=== PATIENT | female | born 1960 | race Caucasian/White ===

== ENCOUNTER 2020-03-07 08:21 | Outpatient (REF) | payer OTHER, SELFPAY ==
[2020-03-07 11:47] LABS: Anion Gap 13 (12-20); Blood Urea Nitrogen 14 mg/dL (9-16); Calcium 9.4 mg/dL (8.4-10.2); Carbon Dioxide 31 mmol/L (22-29); Chloride 103 mmol/L (96-108); Cholesterol 198 mg/dL; Estimated Glomerular Filt Rate > 60; Glucose Fasting 102 mg/dL (60-99); HDL Cholesterol 67 mg/dL; LDL Cholesterol Calculated 117 mg/dl; Potassium 3.6 mmol/l (3.3-5.1); Sodium 143 mmol/L (135-145); Triglycerides 72 mg/dL
== END 2020-03-07 08:22 | disposition home or self-care (01) ==
LOC: HO.HMGCLDS 08:21
PROVIDERS: PCP Internal Medicine; Visit Provider Internal Medicine
DX: I10 Essential (primary) hypertension (principal)
CPT/HCPCS: 80048; 80061

== ENCOUNTER 2020-05-20 09:32 | Outpatient (REF) | payer OTHER, SELFPAY ==
--- NOTE | 2020-05-20 09:39 | CT_ITS ---
EXAMINATION: CT CHEST SCREENING CLINICAL INFORMATION: Nicotine dependence COMPARISON: CT lung screening at 05/10/2019 TECHNIQUE: Multidetector volumetric CT imaging of the chest is performed without contrast using low dose technique. Additional 2D coronal and sagittal reformatted images and axial 3D maximum intensity projection (MIP) images are generated on the CT workstation. This CT examination was performed using dose optimization techniques as appropriate, variously including the following: *Automated exposure control *Adjustment of mA and/or kV according to patient size (this includes techniques or standardized protocols for targeted exams where dose is matched to indication/reason for exam; i.e. extremities or head) *Use of iterative reconstruction technique DLP: 58 mGy-cm FINDINGS: LUNGS: There is a 2.0 cm ground-glass density, right upper lobe, image 18/4. There is a 2.0 mm calcified nodule, left lower lobe, superior segment. There is a 2.0 mm nodule, right upper lobe in the azygos recess, axial image 14/4. There is a subpleural 3 mm nodule, right upper lobe, axial image 28/4. There is a 2.0 mm nodule, right lower lobe, axial image 44/4. These nodules are essentially stable. No new nodules, acute consolidation or new ground-glass density seen. MEDIASTINUM: The thyroid lobes are symmetrical and normal. The central trachea and the bronchi widely patent. The heart size and great vessels are normal caliber. No abnormal size mediastinal lymph nodes or mass seen. Minimal coronary artery calcifications seen. There is no pericardial effusion. PLEURA: There is no pleural effusion. No pleural mass or thickening. AXILLA: Small shotty lymph nodes. The chest wall appears unremarkable. UPPER ABDOMEN: Visualized liver, spleen, pancreas and bilateral adrenal glands are unremarkable. OSSEOUS STRUCTURES: There is mild spondylosis in the mid and lower dorsal spine. No lytic or sclerotic process seen. CT/CT lung screening IMPRESSION: 1. Well-expanded lungs with scattered small calcified pulmonary nodules and a 2.0 cm ground-glass density in the right upper lobe, are stable. 2. No new findings. ASSESSMENT: Lung-RADS category 2: Benign RECOMMENDATION: Low-dose annual CT chest
== END 2020-05-20 09:33 | disposition home or self-care (01) ==
LOC: HO.CT 09:32
PROVIDERS: PCP Internal Medicine; Visit Provider Surgery
DX: Z12.2 Encounter for screening for malignant neoplasm of respiratory organs (principal); F17.210 Nicotine dependence, cigarettes, uncomplicated
CPT/HCPCS: 71250

== ENCOUNTER 2020-07-11 08:16 | Outpatient (REF) | payer OTHER, SELFPAY ==
[2020-07-11 11:20] LABS: MANUAL DIFF FLAG NO
[2020-07-11 11:32] LABS: Basophils Absolute Auto 0.1 X10*3/uL (0.0-0.2); Basophils Percent Auto 1.1 % (0-2); Eosinophils Absolute Auto 0.3 X10*3/uL (0.0-0.4); Eosinophils Percent Auto 5.7 % (0-4); Hematocrit 40.6 % (37-47); Hemoglobin 13.4 g/dl (12.0-16.0); Imm Gran Abs Auto 0.02 X10*3/uL (0.00-0.03); Imm Gran Pct Auto 0.4 % (0.0-0.4); Lymphocytes Percent Auto 35.3 % (20-40); Mean Platelet Volume 10.3 fL (9.4-12.3); Monocytes Absolute Auto 0.4 X10*3/uL (0.1-1.2); Monocytes Percent Auto 7.1 % (2-11); Neutrophils Absolute Auto 2.8 X10*3/uL (2.0-8.3); Neutrophils Percent Auto 50.4 % (45-73); Platelet Count 286 X10*3/uL (160-400); Red Blood Count 4.46 X10*6/uL (4.20-5.50); Red Cell Distribution Width 13.3 % (11.0-16.0); White Blood Count 5.6 X10*3/uL (4.8-10.8)
[2020-07-11 12:05] LABS: Anion Gap 13 (12-20); Blood Urea Nitrogen 13 mg/dL (9-16); Calcium 9.3 mg/dL (8.4-10.2); Carbon Dioxide 29 mmol/L (22-29); Chloride 105 mmol/L (96-108); Cholesterol 205 mg/dL; Estimated Glomerular Filt Rate > 60; Glucose Fasting 103 mg/dL (60-99); HDL Cholesterol 62 mg/dL; LDL Cholesterol Calculated 126 mg/dl; Potassium 4.4 mmol/L (3.3-5.1); Sodium 143 mmol/L (135-145); Triglycerides 85 mg/dL
[2020-07-11 12:07] LABS: TSH reflex Free T4 1.14 uIU/mL (0.32-4.0)
== END 2020-07-11 08:17 | disposition home or self-care (01) ==
LOC: HO.HMGCLDS 08:16
PROVIDERS: PCP Internal Medicine; Visit Provider Internal Medicine
DX: L40.9 Psoriasis, unspecified (principal); F32.5 Major depressive disorder, single episode, in full remission; J45.909 Unspecified asthma, uncomplicated; K21.9 Gastro-esophageal reflux disease without esophagitis; I10 Essential (primary) hypertension; Z91.09 Other allergy status, other than to drugs and biological substances
CPT/HCPCS: 36415; 80048; 80061; 84443; 85025

== ENCOUNTER 2020-09-02 11:18 | Outpatient (REF) | payer OTHER, SELFPAY | END 2020-09-02 11:19 | disposition home or self-care (01) | LOC: HO.10HDL 11:18 | PROVIDERS: Visit Provider Otolaryngology | DX: T78.1XXA Other adverse food reactions, not elsewhere classified, initial encounter (principal) | CPT/HCPCS: 36415; 82785; 86003 ==

== ENCOUNTER → 2021-01-13 15:24 | Outpatient (BNVA) | payer OTHER, SELFPAY | PROVIDERS: PCP Internal Medicine; Referring Provider Internal Medicine; Visit Provider Surgery Vascular Surgery ==

== ENCOUNTER 2021-01-26 07:57 | Outpatient (REF) | payer OTHER, SELFPAY ==
[2021-01-26 11:03] LABS: MANUAL DIFF FLAG NO
[2021-01-26 11:18] LABS: Basophils Percent Auto 0.6 % (0-2); Eosinophils Absolute Auto 0.2 X10*3/uL (0.0-0.4); Eosinophils Percent Auto 2.5 % (0-4); Hematocrit 42.4 % (37-47); Hemoglobin 13.9 g/dl (12.0-16.0); Imm Gran Abs Auto 0.03 X10*3/uL (0.00-0.03); Imm Gran Pct Auto 0.4 % (0.0-0.4); Lymphocytes Absolute Auto 1.5 X10*3/uL (1.2-4.9); Lymphocytes Percent Auto 21.2 % (20-40); Mean Corpuscular HGB Conc 32.8 g/dl (31.0-35.0); Mean Corpuscular Hemoglobin 30.2 pg (27.0-33.0); Mean Platelet Volume 10.4 fL (9.4-12.3); Monocytes Absolute Auto 0.5 X10*3/uL (0.1-1.2); Monocytes Percent Auto 6.5 % (2-11); Neutrophils Percent Auto 68.8 % (45-73); Platelet Count 290 X10*3/uL (160-400); Red Blood Count 4.61 X10*6/uL (4.20-5.50); Red Cell Distribution Width 13.7 % (11.0-16.0); White Blood Count 7.3 X10*3/uL (4.8-10.8)
[2021-01-26 11:43] LABS: Alanine Aminotransferase 25 U/L (0-31); Albumin Level 4.5 g/dL (3.5-5.0); Alkaline Phosphatase 113 U/L (39-117); Anion Gap 16 (12-20); Aspartate Amino Transferase 20 U/L (5-31); Bilirubin Total 0.4 mg/dL (0.0-1.0); Blood Urea Nitrogen 17 mg/dL (9-16); Calcium 9.8 mg/dL (8.4-10.2); Carbon Dioxide 28 mmol/L (22-29); Chloride 105 mmol/L (96-108); Estimated Glomerular Filt Rate > 60; Glucose Random 107 mg/dL (60-115); Potassium 4.1 mmol/L (3.3-5.1); Sodium 145 mmol/L (135-145); Total Protein 6.8 g/dL (6.5-8.0)
== END 2021-01-26 07:58 | disposition home or self-care (01) ==
LOC: HO.HMGCLDS 07:57
PROVIDERS: PCP Internal Medicine; Visit Provider Internal Medicine
DX: F32.5 Major depressive disorder, single episode, in full remission (principal); I10 Essential (primary) hypertension; J45.40 Moderate persistent asthma, uncomplicated; K21.9 Gastro-esophageal reflux disease without esophagitis; Z91.09 Other allergy status, other than to drugs and biological substances
CPT/HCPCS: 36415; 80053; 85025

== ENCOUNTER 2021-01-27 08:02 | Outpatient (REF) | payer OTHER, SELFPAY ==
--- NOTE | ~2021-01-27 | US_ITS ---
EXAMINATION: BILATERAL LOWER EXTREMITY VENOUS ULTRASOUND (Reflux Exam) CLINICAL INDICATION: This is a 60-year-old female with venous insufficiency and varicose veins. COMPARISON: None. TECHNIQUE: Color flow triplex imaging and compression Doppler was performed to evaluate both the deep and the superficial systems bilaterally. To evaluate the superficial system, the examination was performed in the upright position. Color-flow Doppler ultrasound and compression ultrasound were utilized. In addition, maneuvers were utilized to demonstrate reflux. FINDINGS: 1. DEEP VENOUS ULTRASOUND OF THE RIGHT LOWER EXTREMITY: Common Femoral Vein: Compressible, normal respiratory variation and augmented flow. Femoral vein: Compressible, normal color flow and augmentation. Popliteal Vein: Compressible, normal augmentation. Deep Reflux: There is no evidence of reflux in the deep system in either the common femoral vein or the popliteal vein. . There is no evidence of a Robins's cyst. 2. SUPERFICIAL ULTRASOUND WITH DOPPLER OF RIGHT LOWER EXTREMITY GREAT SAPHENOUS VEIN: Saphenofemoral junction: 0.7 cm Mid thigh: 0.3 cm Above knee: 0.4 cm Below knee: 0.3 cm Mid calf: 0.2 cm Ankle: 0.3 cm GSV REFLUX: No evidence of reflux. DUPLICATED GREAT SAPHENOUS VEIN: There is a duplicated lateral great saphenous vein measuring 0.4 cm without reflux. SMALL SAPHENOUS VEIN: Upper: 0.3 cm Lower: 0.2 cm SSV REFLUX: No evidence of reflux. VEIN OF GIACOMINI: None Imaged. PERFORATORS: There is a 0.2 cm distal calf mold closer without reflux. VARICOSITIES: None Imaged 3. DEEP VENOUS ULTRASOUND OF THE LEFT LOWER EXTREMITY: Common Femoral Vein: Compressible, normal respiratory variation and augmented flow. Femoral vein: Compressible, normal color flow and augmentation. Popliteal Vein: Compressible, normal augmentation. Deep Reflux: There is no evidence of reflux in the deep system in either the common femoral vein or the popliteal vein. There is no evidence of a Robins's cyst. 4. SUPERFICIAL ULTRASOUND WITH DOPPLER OF LEFT LOWER EXTREMITY GREAT SAPHENOUS VEIN: Saphenofemoral junction: 0.6 cm. There is no reflux at the junction. Mid thigh: 0.3 cm Above knee: 0.3 cm. There is no reflux at this level and above. Below knee: 0.3 cm. The reflux time is 908 ms. Mid calf: 0.2 cm. There is no reflux at this level and below. Ankle: 0.2 cm GSV REFLUX: There is a short segment of reflux below the knee. There is no reflux at the junction. DUPLICATED GREAT SAPHENOUS VEIN: There is a 0.4 cm duplicated left lateral great saphenous vein measuring 0.4 cm without reflux at the junction. SMALL SAPHENOUS VEIN: Upper: 0.4 cm Lower: 0.2 cm SSV REFLUX: No evidence of reflux. VEIN OF GIACOMINI: None Imaged. PERFORATORS: There are 0.3 mid thigh mold closer without reflux. There is a mid calf mold closer measuring 0.2 cm with a reflux time 1672 ms. VARICOSITIES: None Imaged US/US venous duplex LE BI IMPRESSION: 1. There is a patent right great saphenous vein without evidence of reflux. 2. There is a patent duplicated right lateral rate saphenous vein without reflux. 3. There is a patent right small saphenous vein without reflux. 4. No right-sided varicose veins are seen. 5. There is a patent left great saphenous vein with only isolated reflux below the knee. No reflux is seen at the junction. 6. There is a duplicated left lateral great saphenous vein without reflux during junction. 7. There is a patent left small saphenous vein without reflux. 8. No left-sided varicose veins are seen.
== END 2021-01-27 08:03 | disposition home or self-care (01) ==
LOC: HO.US 08:02
PROVIDERS: PCP Internal Medicine; Visit Provider Surgery Vascular Surgery
DX: I83.893 Varicose veins of bilateral lower extremities with other complications (principal)
CPT/HCPCS: 93970

== ENCOUNTER → 2021-02-05 15:07 | Outpatient (BNVA) | payer OTHER, SELFPAY | PROVIDERS: PCP Internal Medicine; Visit Provider Surgery Vascular Surgery ==

== ENCOUNTER 2021-06-05 09:01 | Outpatient (REF) | payer OTHER, SELFPAY ==
--- NOTE | ~2021-06-05 | CT_ITS ---
EXAMINATION: CT CHEST SCREENING CLINICAL INFORMATION: Nicotine dependence, half a pack a day, 44 years of smoking. COMPARISON: CT lung screening 05/10/2019 and 05/20/2020 TECHNIQUE: Multidetector volumetric CT imaging of the chest is performed without contrast using low dose technique. Additional 2-D coronal and sagittal reformatted images and axial 3-D maximum intensity projection (MIP) images are generated on the CT workstation. This CT examination was performed using dose optimization techniques as appropriate, variously including the following: *Automated exposure control *Adjustment of mA and/or kV according to patient size (this includes techniques or standardized protocols for targeted exams where dose is matched to indication/reason for exam; i.e. extremities or head) *Use of iterative reconstruction technique DLP: 61 mGy-cm FINDINGS: LUNGS: There is a 2 cm ground-glass density right upper lobe axial image 20/4, previously same size on axial image 18/4, 2 mm calcified nodule right upper lobe azygoesophageal recess axial image 16/6, 2 mm calcified nodule left lower lobe superior segment axial image 23/4. The lungs are expanded without any acute pneumonic process. There is no acute pneumonic process or mass seen. MEDIASTINUM: The mediastinum is normal. PLEURA: There is no pleural effusion. No pleural mass or thickening. AXILLA: No lymphadenopathy. UPPER ABDOMEN: Unremarkable. OSSEOUS STRUCTURES: There is mild ventral spondylosis throughout the mid and lower dorsal spine. No lytic or sclerotic process seen. CT/CT lung screening IMPRESSION: Stable calcified and noncalcified pulmonary nodules. No new nodules seen. No acute consolidation. No abnormal mediastinal adenopathy. ASSESSMENT: Lung-RADS category 2: Benign. RECOMMENDATION: Low-dose annual CT chest.
== END 2021-06-05 09:02 | disposition home or self-care (01) ==
LOC: HO.CT 09:01
PROVIDERS: PCP Internal Medicine; Visit Provider Physician Assistant Medical
DX: Z12.2 Encounter for screening for malignant neoplasm of respiratory organs (principal); F17.210 Nicotine dependence, cigarettes, uncomplicated
CPT/HCPCS: 71271

== ENCOUNTER 2021-09-08 07:54 | Outpatient (REF) | payer OTHER, SELFPAY ==
[2021-09-08 11:58] LABS: Alanine Aminotransferase 27 U/L (0-31); Albumin Level 4.4 g/dL (3.5-5.0); Alkaline Phosphatase 90 U/L (39-117); Anion Gap 14 (12-20); Aspartate Amino Transferase 20 U/L (5-31); Bilirubin Total 0.6 mg/dL (0.0-1.0); Blood Urea Nitrogen 15 mg/dL (9-16); Carbon Dioxide 27 mmol/L (22-29); Chloride 100 mmol/L (96-108); Estimated Glomerular Filt Rate > 60; Glucose Random 117 mg/dL (60-115); Potassium 3.8 mmol/L (3.3-5.1); Sodium 137 mmol/L (135-145); Total Protein 6.8 g/dL (6.5-8.0)
== END 2021-09-08 07:55 | disposition home or self-care (01) ==
LOC: HO.HMGCLDS 07:54
PROVIDERS: Visit Provider Internal Medicine
DX: I10 Essential (primary) hypertension (principal); J45.40 Moderate persistent asthma, uncomplicated; K21.9 Gastro-esophageal reflux disease without esophagitis; L40.9 Psoriasis, unspecified; Z91.09 Other allergy status, other than to drugs and biological substances
CPT/HCPCS: 36415; 80053

== ENCOUNTER 2022-02-12 12:54 | Outpatient (REF) | payer OTHER, SELFPAY ==
[2022-02-12 13:58] LABS: MANUAL DIFF FLAG NO
[2022-02-12 14:04] LABS: Basophils Percent Auto 0.6 % (0-2); Eosinophils Absolute Auto 0.2 X10*3/uL (0.0-0.4); Eosinophils Percent Auto 3.4 % (0-4); Hematocrit 43.8 % (37.0-47.0); Hemoglobin 14.6 g/dl (12.0-16.0); Imm Gran Abs Auto 0.04 X10*3/uL (0.00-0.03); Imm Gran Pct Auto 0.6 % (0.0-0.4); Lymphocytes Absolute Auto 2.4 X10*3/uL (1.2-4.9); Lymphocytes Percent Auto 35.5 % (20-40); Mean Corpuscular HGB Conc 33.3 g/dl (31.0-35.0); Mean Corpuscular Hemoglobin 29.9 pg (27.0-33.0); Mean Corpuscular Volume 89.6 fL (80.0-98.0); Mean Platelet Volume 9.8 fL (9.4-12.3); Monocytes Absolute Auto 0.5 X10*3/uL (0.1-1.2); Monocytes Percent Auto 6.8 % (2-11); Neutrophils Absolute Auto 3.6 x10*3/uL (2.0-8.3); Neutrophils Percent Auto 53.1 % (45-73); Platelet Count 285 X10*3/uL (160-400); Red Blood Count 4.89 X10*6/uL (4.20-5.50); Red Cell Distribution Width 13.1 % (11.0-16.0); White Blood Count 6.7 X10*3/uL (4.8-10.8)
[2022-02-12 14:22] LABS: Alanine Aminotransferase 25 U/L (0-31); Albumin Level 4.7 g/dL (3.5-5.0); Alkaline Phosphatase 114 U/L (39-117); Anion Gap 16 (12-20); Aspartate Amino Transferase 19 U/L (5-31); Bilirubin Total 0.5 mg/dL (0.0-1.0); Blood Urea Nitrogen 15 mg/dL (9-16); Calcium 10.3 mg/dL (8.4-10.2); Carbon Dioxide 28 mmol/L (22-29); Chloride 99 mmol/L (96-108); Estimated Glomerular Filt Rate > 60; Glucose Random 101 mg/dL (60-115); Potassium 3.4 mmol/L (3.3-5.1); Sodium 140 mmol/L (135-145); Total Protein 7.3 g/dL (6.5-8.0)
[2022-02-12 14:43] LABS: TSH reflex Free T4 0.78 uIU/mL (0.32-4.0)
[2022-02-14 18:42] LABS: LDL Cholesterol Direct 151 mg/dL (<100)
[2022-02-15 21:46] LABS: Lyme Abs Screen <0.90 index
[2022-02-15 23:16] LABS: IgA 199 mg/dL (70-320); IgG 777 mg/dL (600-1540); IgM 58 mg/dL (50-300)
== END 2022-02-12 12:55 | disposition home or self-care (01) ==
LOC: HO.HMGCLDS 12:54
PROVIDERS: PCP Internal Medicine; Visit Provider Internal Medicine
DX: F32.5 Major depressive disorder, single episode, in full remission (principal); I83.12 Varicose veins of left lower extremity with inflammation; J45.40 Moderate persistent asthma, uncomplicated; K21.9 Gastro-esophageal reflux disease without esophagitis; R21 Rash and other nonspecific skin eruption; R59.0 Localized enlarged lymph nodes; D89.89 Other specified disorders involving the immune mechanism, not elsewhere classified; Z91.09 Other allergy status, other than to drugs and biological substances; I10 Essential (primary) hypertension
CPT/HCPCS: 36415; 80053; 82784; 83721; 84443; 85025; 86617; 86618

== ENCOUNTER 2022-06-10 12:40 | Outpatient (REF) | payer OTHER, SELFPAY ==
--- NOTE | ~2022-06-10 | CT_ITS ---
EXAMINATION: CT CHEST SCREENING CLINICAL INFORMATION: Nicotine dependence. COMPARISON: None. TECHNIQUE: Multidetector volumetric CT imaging of the chest is performed without contrast using low dose technique. Additional 2D coronal and sagittal reformatted images and axial 3D maximum intensity projection (MIP) images are generated on the CT workstation. This CT examination was performed using dose optimization techniques as appropriate, variously including the following: *Automated exposure control *Adjustment of mA and/or kV according to patient size (this includes techniques or standardized protocols for targeted exams where dose is matched to indication/reason for exam; i.e. extremities or head) *Use of iterative reconstruction technique DLP: 57 mGy-cm FINDINGS: LUNGS: The lungs are well expanded and clear of acute pneumonic process. There is a 2.0 cm ground-glass density right upper lobe axial image 17/4, stable. 2 mm calcification right upper lobe medially in the azygoesophageal recess, 2 mm calcification right middle lobe axial image 321/6, lingula axial image 39/4. No noncalcified nodule seen. There is no acute consolidation, atelectasis or edema. MEDIASTINUM: Thyroid lobes are symmetric and normal. The central trachea and the bronchi are widely patent. Heart size and the great vessels are normal caliber. Trace coronary artery calcification seen. No pericardial effusion seen. CORONARY ARTERY CALCIFICATION: None visualized on this study. PLEURA: There is no pleural effusion. No pleural mass or thickening. AXILLA: No lymphadenopathy. UPPER ABDOMEN: Visualized liver, spleen, pancreas and bilateral adrenal glands are unremarkable. OSSEOUS STRUCTURES: There is mild ventral spondylosis. No aggressive lytic or sclerotic process seen. CT/CT lung screening IMPRESSION: Stable 2 cm ground-glass density right upper lobe. Low-dose annual CT chest. ASSESSMENT: Lung-RADS category 2: Benign RECOMMENDATION: Low-dose annual CT chest.
== END 2022-06-10 12:41 | disposition home or self-care (01) ==
LOC: HO.CT 12:40
PROVIDERS: PCP Internal Medicine; Visit Provider Physician Assistant Medical
DX: Z12.2 Encounter for screening for malignant neoplasm of respiratory organs (principal); F17.210 Nicotine dependence, cigarettes, uncomplicated
CPT/HCPCS: 71271

== ENCOUNTER 2022-09-09 08:47 | Outpatient (REF) | payer OTHER, SELFPAY ==
[2022-09-09 11:44] LABS: MANUAL DIFF FLAG NO
[2022-09-09 12:04] LABS: Alanine Aminotransferase 25 U/L (0-31); Albumin Level 4.4 g/dL (3.5-5.0); Alkaline Phosphatase 92 U/L (39-117); Anion Gap 13 (12-20); Aspartate Amino Transferase 19 U/L (5-31); Basophils Absolute Auto 0.1 X10*3/uL (0.0-0.2); Bilirubin Total 0.8 mg/dL (0.0-1.0); Blood Urea Nitrogen 16 mg/dL (9-16); Calcium 9.6 mg/dL (8.4-10.2); Carbon Dioxide 28 mmol/L (22-29); Chloride 105 mmol/L (96-108); Cholesterol 233 mg/dL; Eosinophils Absolute Auto 0.2 X10*3/uL (0.0-0.4); Eosinophils Percent Auto 4.8 % (0-4); Estimated Glomerular Filt Rate > 60; Glucose Fasting 103 mg/dL (60-99); HDL Cholesterol 54 mg/dL; Hemoglobin 13.7 g/dl (12.0-16.0); Imm Gran Abs Auto 0.02 X10*3/uL (0.00-0.03); Imm Gran Pct Auto 0.4 % (0.0-0.4); LDL Cholesterol Calculated 160 mg/dl; Lymphocytes Absolute Auto 1.8 X10*3/uL (1.2-4.9); Lymphocytes Percent Auto 35.7 % (20-40); Mean Corpuscular HGB Conc 33.4 g/dl (31.0-35.0); Mean Corpuscular Hemoglobin 30.2 pg (27.0-33.0); Mean Corpuscular Volume 90.5 fL (80.0-98.0); Mean Platelet Volume 10.3 fL (9.4-12.3); Monocytes Absolute Auto 0.4 X10*3/uL (0.1-1.2); Monocytes Percent Auto 7.8 % (2-11); Neutrophils Absolute Auto 2.5 x10*3/uL (2.0-8.3); Neutrophils Percent Auto 50.3 % (45-73); Platelet Count 267 X10*3/uL (160-400); Red Blood Count 4.53 X10*6/uL (4.20-5.50); Red Cell Distribution Width 13.1 % (11.0-16.0); Sodium 142 mmol/L (135-145); Total Protein 6.6 g/dL (6.5-8.0); Triglycerides 98 mg/dL
== END 2022-09-09 08:48 | disposition home or self-care (01) ==
LOC: HO.HMGCLDS 08:47
PROVIDERS: PCP Internal Medicine; Visit Provider Internal Medicine
DX: F32.5 Major depressive disorder, single episode, in full remission (principal); I10 Essential (primary) hypertension; J45.40 Moderate persistent asthma, uncomplicated; K21.9 Gastro-esophageal reflux disease without esophagitis; L40.9 Psoriasis, unspecified; Z91.09 Other allergy status, other than to drugs and biological substances
CPT/HCPCS: 36415; 80053; 80061; 85025

== ENCOUNTER 2022-12-09 09:17 | Outpatient (REF) | payer OTHER, SELFPAY ==
[2022-12-09 12:02] LABS: Alanine Aminotransferase 22 U/L (0-31); Albumin Level 4.3 g/dL (3.5-5.0); Alkaline Phosphatase 100 U/L (39-117); Anion Gap 14 (12-20); Aspartate Amino Transferase 19 U/L (5-31); Bilirubin Total 0.7 mg/dL (0.0-1.0); Blood Urea Nitrogen 17 mg/dL (9-16); Calcium 10.2 mg/dL (8.4-10.2); Carbon Dioxide 29 mmol/L (22-29); Chloride 102 mmol/L (96-108); Cholesterol 224 mg/dL; Estimated Glomerular Filt Rate > 60; Glucose Fasting 107 mg/dL (60-99); HDL Cholesterol 66 mg/dL; LDL Cholesterol Calculated 145 mg/dl; Potassium 3.7 mmol/L (3.3-5.1); Sodium 141 mmol/L (135-145); Total Protein 6.9 g/dL (6.5-8.0); Triglycerides 68 mg/dL
== END 2022-12-09 09:18 | disposition home or self-care (01) ==
LOC: HO.HMGCLDS 09:17
PROVIDERS: PCP Internal Medicine; Visit Provider Internal Medicine
DX: E78.9 Disorder of lipoprotein metabolism, unspecified (principal); F99 Mental disorder, not otherwise specified; J45.40 Moderate persistent asthma, uncomplicated; R73.01 Impaired fasting glucose; I10 Essential (primary) hypertension
CPT/HCPCS: 36415; 80053; 80061

== ENCOUNTER 2022-12-10 11:46 | Outpatient (AMB) | payer OTHER, SELFPAY ==
[2022-12-10 11:47] VITALS: BP 122/72; PULSE 86; O2SAT 97; BMI 33.0
--- NOTE | 2022-12-10 11:47 | A.OFFPC_ITS ---
Vital Signs 12/10/22 11:47 Height 5 ft 3 in Weight 186 lb 4 oz BMI 33.0 BP 122/72 Blood Pressure Location Rt brachial Position Sitting Pulse 86 Pulse Source Pulse Oximeter Pulse Oximetry (%) 97 Oxygen Delivery Method Room Air Intake Visit Reasons: 3m follow up Allergies Seasonal Allergies Allergy (Mild, Verified 12/10/22 12:01) Sneezing eggs Allergy (Mild, Uncoded 09/10/22 09:12) Unknown Medication List - Last Reconciled 12/10/22 by Annita Malloy MD albuterol sulfate 90 mcg/actuation (ProAir HFA) 2 puffs inhalation Q6H PRN 30 days alprazolam 0.25 mg PO DAILY PRN 90 days budesonide-formoterol 160-4.5 mcg/actuation (Symbicort) 2 puffs PO BID bupropion HCl (Wellbutrin XL) 150 mg PO QAM 90 days cetirizine (Zyrtec) 10 mg PO DAILY coenzyme Q10 400 mg PO DAILY fluticasone propionate 50 mcg/actuation (Flonase Allergy Relief) 1 spray intranasal DAILY hydrochlorothiazide 50 mg PO DAILY losartan 25 mg PO DAILY 90 days montelukast 10 mg PO DAILY omega-3 fatty acids 1,000 mg PO DAILY omeprazole 20 mg PO DAILY 90 days red yeast rice 1,200 mg PO DAILY tacrolimus 0.1% topical BID Tobacco use date assessed: 12/10/22 Dental Screening Dental Screen Date: 12/10/22 Did you have a dental visit in the last 12 months?: Yes Did you have a dental problem in the last 6 months where you did not have access to dental care?: No Was dental information given to patient?: No HPI 3m follow up 2 HPI Details Patient is 61-year-old female came in today for her regular follow-up appointment. Lipid disorder: Her cholesterol was elevated last visit patient did not wanted to take medication she has modified her diet and has started taking Mcdonald 3 Her LDL has improved to 145 it was 160+ last time. HDL has risen to 66. Patient is complaining of frequency of urination without any dysuria or blood in the urine she has it started drinking more water We talked about possibility of cystitis I have ordered the urinalysis, we have also talked about overactive bladder at this time patient does not take any medication for that GERD is stable , she says that if she stop the medication her symptoms comes back so she is taking it regularly Hypertension: Patient is on losartan 25 mg and hydrochlorothiazide 50 mg, no side effects. Allergies are stable she is on montelukast as well as Zyrtec was fine last visit is also getting allergy shots Psoriasis treated by Dermatology Moderate severe asthma : Patient is doing well with Symbicort inhaler and ProAir as needed, symptoms has started to act up due whether Follow-up 3 months ?? [facility] Medical History Allergic asthma Chronic GERD Depression, major, in remission Environmental allergies Hypertension, essential Psoriasis (a type of skin inflammation) Surgical History History of back surgery Family History Father History of heart attack Mother HTN (hypertension) Asthma Diabetes mellitus CHF (congestive heart failure) Maternal Grandmother Cancer Colon cancer Maternal Grandfather Cancer Social History Housing: House Patient Tobacco Use Status: Current everyday Tobacco user Cigarettes Per Day: 6 e-Cigarette/Vaping Use: Never Used Current occupational status: employed Cognitive needs: No Hearing needs: No Vision needs: No Questionnaire Thrive Questionnaire Date Thrive assessed: 06/11/22 AUDIT C Alcohol Use Questionnaire (AUDIT-C) 1. How often do you have a drink containing alcohol?: 2-3 times a week 2. How many drinks containing alcohol do you have on a typical day when you are drinking?: 3 or 4 3. How often do you have six or more drinks on one occasion?: Never Total Score: 4 Score Reviewed/Action Taken: Yes FERNANDO-7 AMB Questionnaire FERNANDO-7 Date FERNANDO - 7 assessed: 06/11/22 Source: Developed by Drs. Trey Bush, Aurora Roger, Amrit Espinoza and colleagues, with an educational morales from [employer]. Review of Systems Const Denies chills and Denies fever(s) ENT Denies epistaxis and Denies nasal discharge Card Denies chest pain Resp Denies chest congestion, Denies cough and Denies hemoptysis GI Denies diarrhea and Denies nausea Skin/Breast Denies rash Neuro Reports no additional complaints Psych Reports no additional complaints Endo Reports no additional complaints Physical exam (Primary Care) Vital Signs: Last Vital Signs Pulse 86 12/10/22 11:47 BP 122/72 12/10/22 11:47 Pulse Ox 97 12/10/22 11:47 Oxygen Delivery Method Room Air 12/10/22 11:47 BMI result Body Mass Index 33.0 Tobacco/Smoking Status: Tobacco use Status Tobacco use date assessed 12/10/22 12/10/22 12:03 Patient Tobacco Use Status Current everyday Tobacco 12/10/22 11:49 e-Cigarette/Vaping Use Never Used 12/10/22 11:49 Thrive Assessment: Date of Thrive Assessment Date Thrive assessed 06/11/22 12/10/22 11:49 Const General: cooperative, comfortable and no acute distress Orientation/consciousness: patient oriented x3 HENMT Head: Yes normocephalic Eyes General: appearance normal, both eyes and all related structures Neck Neck: Yes supple Resp Effort & Inspection: normal respiratory effort, no cough and no stridor Cardio Rhythm: regular rhythm Heart sounds: S1 normal heart sound present and S2 normal heart sound present Skin General skin exam: turgor normal Neuro General: patient oriented x3, tone normal and moves all extremities Extrem Right lower extremity: no edema Left lower extremity: no edema Assessment and Plan Assessment & Plan (1) Hypertension, essential: Code(s): I10 - Essential (primary) hypertension (2) Chronic GERD: Code(s): K21.9 - Gastro-esophageal reflux disease without esophagitis (3) Environmental allergies: Code(s): Z91.09 - Other allergy status, other than to drugs and biological substances (4) Depression, major, in remission: Code(s): F32.5 - Major depressive disorder, single episode, in full remission (5) Psoriasis (a type of skin inflammation): Code(s): L40.9 - Psoriasis, unspecified (6) Asthma, moderate persistent: Code(s): J45.40 - Moderate persistent asthma, uncomplicated (7) Emotional disorder: Code(s): F99 - Mental disorder, not otherwise specified (8) Impaired fasting blood sugar: Code(s): R73.01 - Impaired fasting glucose (9) Lipid disorder: Code(s): E78.9 - Disorder of lipoprotein metabolism, unspecified (10) Frequency of urination: Code(s): R35.0 - Frequency of micturition Plan Patient is 61-year-old female came in today for her regular follow-up appointment. Lipid disorder: Her cholesterol was elevated last visit patient did not wanted to take medication she has modified her diet and has started taking Mcdonald 3 Her LDL has improved to 145 it was 160+ last time. HDL has risen to 66. Patient is complaining of frequency of urination without any dysuria or blood in the urine she has it started drinking more water We talked about possibility of cystitis I have ordered the urinalysis, we have also talked about overactive bladder at this time patient does not take any medication for that GERD is stable , she says that if she stop the medication her symptoms comes back so she is taking it regularly Hypertension: Patient is on losartan 25 mg and hydrochlorothiazide 50 mg, no side effects. Allergies are stable she is on montelukast as well as Zyrtec was fine last visit is also getting allergy shots Psoriasis treated by Dermatology Moderate severe asthma : Patient is doing well with Symbicort inhaler and ProAir as needed, symptoms has started to act up due whether Follow-up 3 months ?? Orders: Orders UA CC w/rflx Micro + Cult Today R35.0 - Frequency of micturition Coding Level of Care Code Est Pt Level 4 (34757) Diagnoses Hypertension, essential I10 Chronic GERD K21.9 Environmental allergies Z91.09 Depression, major, in remission F32.5 Psoriasis (a type of skin inflammation) L40.9 Asthma, moderate persistent J45.40 Emotional disorder F99 Impaired fasting blood sugar R73.01 Lipid disorder E78.9 Frequency of urination R35.0
== END 2022-12-10 12:25 | disposition home or self-care (01) ==
PROVIDERS: Visit Provider Internal Medicine
DX: I10 Essential (primary) hypertension (principal); K21.9 Gastro-esophageal reflux disease without esophagitis; Z91.09 Other allergy status, other than to drugs and biological substances; F32.5 Major depressive disorder, single episode, in full remission; J45.40 Moderate persistent asthma, uncomplicated; L40.9 Psoriasis, unspecified; F99 Mental disorder, not otherwise specified; R73.01 Impaired fasting glucose; E78.9 Disorder of lipoprotein metabolism, unspecified; R35.0 Frequency of micturition
CPT/HCPCS: 99214

== ENCOUNTER 2023-04-04 11:28 | Emergency (ER) | payer OTHER, SELFPAY ==
--- NOTE | 2023-04-04 11:34 | ECG_ITS ---
Test Reason : pain Blood Pressure : / mmHG Vent. Rate : 083 BPM Atrial Rate : 083 BPM P-R Int : 202 ms QRS Dur : 146 ms QT Int : 406 ms P-R-T Axes : 065 -26 041 degrees QTc Int : 477 ms Normal sinus rhythm Right bundle branch block Minimal voltage criteria for LVH, may be normal variant ( R in aVL ) Abnormal ECG No previous ECGs available Referred By: Gray Winchester Electronically Signed By:SCOOBY BARBOUR MD
[2023-04-04 12:39] VITALS: BP 171/79; PULSE 73; RESP 18; TEMP 36.7; O2SAT 100; BMI 33.7
[2023-04-04 13:17] LABS: Basophils Absolute Auto 0.1 X10*3/uL (0.0-0.2); Basophils Percent Auto 0.7 % (0-2); Eosinophils Absolute Auto 0.2 X10*3/uL (0.0-0.4); Eosinophils Percent Auto 2.7 % (0-4); Hemoglobin 14.5 g/dl (12.0-16.0); Imm Gran Abs Auto 0.02 X10*3/uL (0.00-0.03); Imm Gran Pct Auto 0.3 % (0.0-0.4); Lymphocytes Absolute Auto 2.1 X10*3/uL (1.2-4.9); Lymphocytes Percent Auto 27.8 % (20-40); MANUAL DIFF FLAG NO; Mean Corpuscular HGB Conc 33.7 g/dl (31.0-35.0); Mean Corpuscular Hemoglobin 29.8 pg (27.0-33.0); Mean Corpuscular Volume 88.3 fL (80.0-98.0); Mean Platelet Volume 9.1 fL (9.4-12.3); Monocytes Absolute Auto 0.5 X10*3/uL (0.1-1.2); Monocytes Percent Auto 6.9 % (2-11); Neutrophils Absolute Auto 4.6 x10*3/uL (2.0-8.3); Neutrophils Percent Auto 61.6 % (45-73); Platelet Count 292 X10*3/uL (160-400); Red Blood Count 4.87 X10*6/uL (4.20-5.50); Red Cell Distribution Width 13.2 % (11.0-16.0); White Blood Count 7.5 X10*3/uL (4.8-10.8)
[2023-04-04 13:30] LABS: Anion Gap 14 (12-20); Blood Urea Nitrogen 14 mg/dL (9-16); Calcium 10.7 mg/dL (8.4-10.2); Carbon Dioxide 27 mmol/L (22-29); Chloride 103 mmol/L (96-108); Creatinine Clr Calc Pharmacy 79.9; Estimated Glomerular Filt Rate > 60; Glucose Random 101 mg/dL (60-115); Potassium 3.6 mmol/L (3.3-5.1); Sodium 140 mmol/L (135-145)
[2023-04-04 13:40] LABS: Troponin-I High Sensitivity < 2.7 ng/L (<3.5-17.0)
[2023-04-04 13:52] LABS: TSH reflex Free T4 1.01 uIU/mL (0.32-4.0)
[2023-04-04 16:34] VITALS: BP 186/78; PULSE 77; RESP 18; O2SAT 97
--- NOTE | 2023-04-04 16:34 | ED.ARRPALP ---
HPI - Arrhythmia/Palpitations General Chief Complaint: Arrhythmia/Palpitations Stated Complaint: irregular heartbeat Time Seen by Provider: 04/04/23 16:33 Source: patient Mode of arrival: ambulatory Limitations: no limitations History of Present Illness HPI narrative: Patient is 62 years old history of asthma hypertension anxiety been feeling palpitation episode for last 3 days off and on feels heart beating in runs for few seconds without any dizziness shortness of breath or chest frequency has decreased today patient was seen at urgent care center 3 days ago. No increased caffeine intake no thyroid disease no syncope Related Data Home Medications Medication Instructions Recorded Confirmed cetirizine 10 mg tablet (Zyrtec) 10 mg PO DAILY 03/11/20 12/10/22 fluticasone propionate 50 1 spray intranasal DAILY 03/11/20 12/10/22 mcg/actuation nasal spray,suspension (Flonase Allergy Relief) tacrolimus 0.1 % topical ointment topical BID 09/11/21 12/10/22 coenzyme Q10 400 mg capsule 400 mg PO DAILY 12/10/22 12/10/22 omega-3 fatty acids 1,000 mg 1,000 mg PO DAILY 12/10/22 12/10/22 capsule red yeast rice 600 mg capsule 1,200 mg PO DAILY 12/10/22 12/10/22 Previous Rx's Medication Instructions Recorded albuterol sulfate 90 mcg/actuation 2 puff inhalation Q6H PRN 05/01/21 aerosol inhaler (ProAir HFA) bronchospasm 30 days #8.5 grams omeprazole 20 mg capsule,delayed 20 mg PO DAILY 90 days #90 caps 06/11/22 release budesonide-formoterol HFA 160 2 puff PO BID #10.2 ea 06/28/22 mcg-4.5 mcg/actuation aerosol inhaler (Symbicort) alprazolam 0.25 mg tablet 0.25 mg PO DAILY PRN anxiety 90 09/10/22 days #90 tabs hydrochlorothiazide 50 mg tablet 50 mg PO DAILY #90 tabs 01/14/23 bupropion HCl 150 mg 24 hr tablet, 150 mg PO QAM 90 days #90 tabs 01/27/23 extended release (Wellbutrin XL) montelukast 10 mg tablet 10 mg PO DAILY #90 tabs 03/23/23 losartan 25 mg tablet 25 mg PO DAILY 90 days #90 tabs 03/29/23 Allergies Allergy/AdvReac Type Severity Reaction Status Date / Time Seasonal Allergies Allergy Mild Sneezing Verified 12/10/22 12:01 eggs Allergy Mild Unknown Uncoded 09/10/22 09:12 Review of Systems Review of Systems: Yes all other systems are reviewed and are negative [facility] Past Medical History Medical History Psoriasis (a type of skin inflammation) Depression, major, in remission Allergic asthma Environmental allergies Chronic GERD Hypertension, essential Surgical History History of back surgery Family History Family History Father History of heart attack Mother HTN (hypertension) Asthma Diabetes mellitus CHF (congestive heart failure) Maternal Grandmother Cancer Colon cancer Maternal Grandfather Cancer Social History Social History Housing: House Alcohol intake: current Alcohol intake frequency: a few times a week Alcohol type: wine and hard liquor Patient Tobacco Use Status: Current everyday Tobacco user Cigarettes Per Day: 6 Smoked in Last 30 Days: Yes e-Cigarette/Vaping Use: Never Used Use of substances other than those prescribed or required for medical reasons: No Advance Directives: No Advance Directives Information Provided: No Current occupational status: employed Cognitive needs: No Hearing needs: No Vision needs: No Physical Exam Vital Signs: Vital Signs: Last Vital Signs Temp 98.0 F 04/04/23 12:39 Pulse 77 04/04/23 16:34 Resp 18 04/04/23 16:34 BP 186/78 H 04/04/23 16:34 Pulse Ox 97 04/04/23 16:34 O2 Del Method Room Air 04/04/23 16:34 BMI result Body Mass Index 33.7 Appearance: Alert. Oriented X3. No acute distress. Eyes: PERRLA, No Nystagmus ENT: Pharynx normal. Oral Mucosa moist Neck: Normal inspection. Neck supple. CVS: Normal heart rate and rhythm. Pulses normal. Respiratory: No respiratory distress. Equal air entry bilateral, no wheezing/rales/rhonchi Abdomen: Soft and nontender. Bowel sounds are present, no mass palpable, no CVA tenderness Skin: Skin warm and dry. Normal skin color. Normal skin turgor. Extremities: No lower extremity edema. No calf tenderness Neuro: Oriented X 3. No motor deficit. 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 04/04/23 13:08 04/04/23 13:08 Labs: Lab Results 04/04/23 Range/Units 13:08 WBC 7.5 (4.8-10.8) X10*3/uL RBC 4.87 (4.20-5.50) X10*6/uL Hgb 14.5 (12.0-16.0) g/dl Hct 43.0 (37.0-47.0) % MCV 88.3 (80.0-98.0) fL MCH 29.8 (27.0-33.0) pg MCHC 33.7 (31.0-35.0) g/dl RDW 13.2 (11.0-16.0) % Plt Count 292 (160-400) X10*3/uL MPV 9.1 L (9.4-12.3) fL Immature Gran % (Auto) 0.3 (0.0-0.4) % Neut % (Auto) 61.6 (45-73) % Lymph % (Auto) 27.8 (20-40) % Stoddard % (Auto) 6.9 (2-11) % Eos % (Auto) 2.7 (0-4) % Baso % (Auto) 0.7 (0-2) % Lymph # (Auto) 2.1 (1.2-4.9) X10*3/uL Stoddard # (Auto) 0.5 (0.1-1.2) X10*3/uL Eos # (Auto) 0.2 (0.0-0.4) X10*3/uL Baso # (Auto) 0.1 (0.0-0.2) X10*3/uL Abs Immat Gran (auto) 0.02 (0.00-0.03) X10*3/uL Absolute Neuts (auto) 4.6 (2.0-8.3) x10*3/uL Absolute Nucleated RBC 0.000 (0.0-0.012) X10*3/uL Nucleated RBC % (auto) 0.0 (0.0-0.2) /100WBC Sodium 140 (135-145) mmol/L Potassium 3.6 (3.3-5.1) mmol/L Chloride 103 (96-108) mmol/L Carbon Dioxide 27 (22-29) mmol/L Anion Gap 14 (12-20) BUN 14 (9-16) mg/dL Creatinine 0.74 (0.5-1.4) mg/dL Estim Creat Clear Calc 79.9 Estimated GFR > 60 Random Glucose 101 (60-115) mg/dL Calcium 10.7 H (8.4-10.2) mg/dL Troponin I High Sens < 2.7 (<3.5-17.0) ng/L TSH 1.01 (0.32-4.0) uIU/mL Independent Interpretation I performed an independent interpretation of an: EKG Interpretation: Normal sinus rhythm heart rate 83 beats per minute,normal axis right bundle-branch block, LVH no acute ischemia Discharge Plan Discharge Clinical Impression: Palpitations Patient Disposition: Home, Self-Care Instructions: Heart Palpitations (ED) Additional Instructions: Decrease caffeine intake Follow with PCP/cardiology for further management including Holter placement Report to the ER if passing out episode with palpitation or palpitation gets worse Prescriptions: No Action budesonide-formoterol [Symbicort] 160-4.5 mcg/actuation HFA aerosol inhaler 2 puff PO BID Qty: 10.2 3RF hydrochlorothiazide 50 mg tablet 50 mg PO DAILY Qty: 90 0RF bupropion HCl [Wellbutrin XL] 150 mg tablet extended release 24 hr 150 mg PO QAM 90 Days Qty: 90 0RF montelukast 10 mg tablet 10 mg PO DAILY Qty: 90 1RF losartan 25 mg tablet 25 mg PO DAILY 90 Days Qty: 90 0RF cetirizine [Zyrtec] 10 mg tablet 10 mg PO DAILY fluticasone propionate [Flonase Allergy Relief] 50 mcg/actuation spray,suspension 1 spray intranasal DAILY Rx Instructions: administer into each nostril albuterol sulfate [ProAir HFA] 90 mcg/actuation HFA aerosol inhaler 2 puff inhalation Q6H PRN (Reason: bronchospasm) 30 Days Qty: 8.5 2RF tacrolimus 0.1 % ointment topical BID omeprazole 20 mg capsule,delayed release(DR/EC) 20 mg PO DAILY 90 Days Qty: 90 3RF alprazolam 0.25 mg tablet 0.25 mg PO DAILY PRN (Reason: anxiety) 90 Days Qty: 90 0RF coenzyme Q10 400 mg capsule 400 mg PO DAILY red yeast rice 600 mg capsule 1,200 mg PO DAILY Rx Instructions: give with meal/snack omega-3 fatty acids 1,000 mg capsule 1,000 mg PO DAILY Referrals: Fernandez Haq MD [Physician] - 2 weeks
== END 2023-04-04 17:43 | disposition home or self-care (01) ==
PROVIDERS: Physician Assistant; Emergency Provider Internal Medicine; PCP Internal Medicine
DX: I49.9 Cardiac arrhythmia, unspecified (principal); F41.1 Generalized anxiety disorder; R00.2 Palpitations; F43.0 Acute stress reaction; Z79.899 Other long term (current) drug therapy; F17.210 Nicotine dependence, cigarettes, uncomplicated; Z71.6 Tobacco abuse counseling
CPT/HCPCS: 36415; 80048; 84443; 84484; 85025; 93005; 99283; 99284

== ENCOUNTER 2023-04-25 13:56 | Outpatient (AMB) | payer OTHER, SELFPAY ==
[2023-04-25 13:58] VITALS: BP 151/76; PULSE 78; BMI 34.9
--- NOTE | 2023-04-25 13:58 | MHC.OFFVIS ---
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 (NS) Intake Note: still having some palpitations Caul Puller Required: No Allergies Seasonal Allergies Allergy (Mild, Verified 04/25/23 14:01) Sneezing eggs Allergy (Mild, Uncoded 09/10/22 09:12) Unknown Medication List - Last Reconciled 04/25/23 by Sonia Pulido NP-C albuterol sulfate 90 mcg/actuation (ProAir HFA) 2 puffs inhalation Q6H PRN 30 days alprazolam 0.25 mg PO DAILY PRN 90 days budesonide-formoterol 160-4.5 mcg/actuation (Symbicort) 2 puffs PO BID bupropion HCl (Wellbutrin XL) 150 mg PO QAM 90 days cetirizine (Zyrtec) 10 mg PO DAILY coenzyme Q10 400 mg PO DAILY fluticasone propionate 50 mcg/actuation (Flonase Allergy Relief) 1 spray intranasal DAILY hydrochlorothiazide 50 mg PO DAILY losartan 25 mg PO DAILY 90 days montelukast 10 mg PO DAILY omega-3 fatty acids 1,000 mg PO DAILY omeprazole 20 mg PO DAILY 90 days red yeast rice 1,200 mg PO DAILY tacrolimus 0.1% topical BID 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 No significant abnormalities were identified. She was noted to have occasional PVCs. She was referred to Cardiology for further evaluation. Today she presents for cardiology consultation. She tells me that for the last year she has noticed intermittent episodes of rapid heart palpitations. She says it feels like her heart is punching hard at times. It may go on for a few beats then stop and resume. This can happen with activity or at rest. She has no associated symptoms of presyncope, syncope, lightheadedness. No other chest discomfort, no shortness of breath, PND, orthopnea or edema. She admits to being mostly sedentary. 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 She does not do any routine exercise. She has no cardiac history beyond being told she had a heart murmur in the past. Her father had fatal MD at age 44. Her mother has had issues with congestive heart failure. She does smoke, currently 6 cigarettes per day. No routine alcohol use. [facility] Medical History Psoriasis (a type of skin inflammation) Depression, major, in remission Allergic asthma Environmental allergies Chronic GERD Hypertension, essential Surgical History History of back surgery Family History Father History of heart attack Mother HTN (hypertension) Asthma Diabetes mellitus CHF (congestive heart failure) Maternal Grandmother Cancer Colon cancer Maternal Grandfather Cancer Housing: House Alcohol intake: current Alcohol intake frequency: a few times a week Alcohol type: wine and hard liquor Patient Tobacco Use Status: Current everyday Tobacco user Cigarettes Per Day: 6 e-Cigarette/Vaping Use: Never Used Current occupational status: employed Cognitive needs: No Hearing needs: No Vision needs: No Review of Systems Const Details: admits to being sedentary All systems reviewed & are unremarkable except as noted in HPI and below ENT Reports dizziness Card Details: palpitations Denies chest pain, Denies chest pain at rest, Denies chest pain with activity, Denies pedal edema, Denies edema, Denies leg edema, Denies lightheadedness, Reports palpitations, Denies dyspnea, Denies dyspnea on exertion and Denies orthopnea Resp Denies cough, Denies dyspnea and Denies dyspnea on exertion GI Denies hematochezia and Denies change in stool character Musc Denies abnormal gait, Denies limited range of motion, Denies muscle cramps, Denies muscle weakness, Denies numbness, Denies radiating pain into limb, Denies stiffness and Denies tingling Neuro Denies abnormal gait, Reports dizziness, Denies numbness and Denies tingling Endo Reports palpitations Physical Exam Vital Signs: Last Vital Signs Pulse 78 04/25/23 13:58 BP 151/76 H 04/25/23 13:58 BMI result Body Mass Index 34.9 Const General: cooperative, healthy appearing, comfortable and no acute distress Orientation/consciousness: patient oriented x3 Neck Neck: Yes normal visual inspection Resp Effort & Inspection: normal respiratory effort Auscultation: clear to auscultation bilaterally, no rales, no rhonchi and no wheezes Cardio Jugular venous distension: no JVD Rate: regular rate Rhythm: regular rhythm Heart sounds: S1 normal heart sound present, S2 normal heart sound present, no murmurs and no rubs Peripheral pulses: Peripheral pulses 2+ throughout Neuro General: patient oriented x3 Extrem General: Yes normal to inspection Psych Appearance: grossly normal Mental Status: mental status grossly normal Speech and movement: Normal speech and movement present Assessment & Plan Assessment & Plan (1) Palpitations: Code(s): R00.2 - Palpitations Plan: Reported heart palpitations which feel like a strong punch to her chest and can occur for minutes and on and off for hours. No associated symptoms of lightheadedness or shortness of breath. No history of presyncope, syncope. ER evaluation on 04/04/2023 for this symptom. EKG shows sinus rhythm with right bundle branch block, rate 83. ER notes indicate occasional PVCs, normal ME, QRS and QTC intervals. Lab work reviewed with no significant abnormalities, no anemia, TSH 1.01, potassium 3.6. Today she reports the symptoms have been occurring over the last year without clear aggravating or alleviating factors. More recently they have increased. Pulse is regular on examination. Will check a one-week Holter to evaluate for arrhythmia, atrial fibrillation. Will check an echocardiogram to assess for structural heart disease. Reviewed reduction in caffeinated beverages, increasing physical activity as tolerated, benefits of weight loss. Cardiology follow-up in 4-6 weeks, sooner if needed. (2) Right bundle branch block: Code(s): I45.10 - Unspecified right bundle-branch block Plan: Finding of right bundle branch block on EKG. No prior EKG for comparison. Unknown if this is a new finding. Will check echo as above. (3) Hypertension, essential: Code(s): I10 - Essential (primary) hypertension Plan: Elevated this visit. She tells me her blood pressure is up and down. She monitors it at home and it is usually in normal range. Will continue on current meds, hydrochlorothiazide and losartan. No med changes made today. Will plan recheck at next visit Orders: Orders CA echo transthoracic complete Today I10 - Essential (primary) hypertension, I45.10 - Unspecified right bundle-branch block, R00.2 - Palpitations ECG 7 day holter monitor Today R00.2 - Palpitations Coding Level of Care Code New Pt Level 3 (79432) Diagnoses Palpitations R00.2 Right bundle branch block I45.10 Hypertension, essential I10 Time Spent (min) 28
== END 2023-04-25 14:31 | disposition home or self-care (01) ==
PROVIDERS: PCP Internal Medicine; Visit Provider Nurse Practitioner Family
DX: R00.2 Palpitations (principal); I45.10 Unspecified right bundle-branch block; I10 Essential (primary) hypertension
CPT/HCPCS: 99203

== ENCOUNTER → 2023-04-25 13:56 | Outpatient (BNVA) | payer OTHER, SELFPAY | PROVIDERS: PCP Internal Medicine; Visit Provider Nurse Practitioner Family ==

== ENCOUNTER 2023-05-11 09:58 | Outpatient (AMB) | payer OTHER, SELFPAY ==
[2023-05-11 10:00] VITALS: BP 152/84; PULSE 74; O2SAT 97; BMI 34.8
--- NOTE | 2023-05-11 10:00 | MHC.PC.OV ---
Vital Signs 05/11/23 10:00 Height 5 ft 3 in Weight 196 lb 8 oz BMI 34.8 BP 152/84 H Blood Pressure Location Lt brachial Position Sitting Pulse 74 Pulse Source Pulse Oximeter Pulse Oximetry (%) 97 Oxygen Delivery Method Room Air Intake Visit Reasons: High BP, discuss changing medication Allergies Seasonal Allergies Allergy (Mild, Verified 05/11/23 10:01) Sneezing eggs Allergy (Mild, Uncoded 09/10/22 09:12) Unknown Medication List - Last Reconciled 05/11/23 by Annita Malloy MD albuterol sulfate 90 mcg/actuation (ProAir HFA) 2 puffs inhalation Q6H PRN 30 days alprazolam 0.25 mg PO DAILY PRN 90 days budesonide-formoterol 160-4.5 mcg/actuation (Symbicort) 2 puffs PO BID bupropion HCl (Wellbutrin XL) 150 mg PO QAM 90 days cetirizine (Zyrtec) 10 mg PO DAILY coenzyme Q10 400 mg PO DAILY fluticasone propionate 50 mcg/actuation (Flonase Allergy Relief) 1 spray intranasal DAILY hydrochlorothiazide 50 mg PO DAILY losartan 25 mg PO DAILY 90 days montelukast 10 mg PO DAILY omega-3 fatty acids 1,000 mg PO DAILY omeprazole 20 mg PO DAILY 90 days red yeast rice 1,200 mg PO DAILY tacrolimus 0.1% topical BID Tobacco use date assessed: 05/11/23 Fall risk assessment: No Falls in past year Last assessed Fall Risk: 05/11/23 Dental Screening Dental Screen Date: 05/11/23 Did you have a dental visit in the last 12 months?: Yes Did you have a dental problem in the last 6 months where you did not have access to dental care?: No Was dental information given to patient?: Patient has dentist HPI High BP, discuss changing medication HPI Details Patient is a 62-year-old female came in today to talk about her blood pressure which has been running high Patient says that she was sick a month ago and took a decongestant like Sudafed after that she started having palpitations and her blood pressure has been running high since however she has stopped taking the medication 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 She has a regular follow-up appointment coming up in May we will recheck the blood pressure that. [facility] Medical History Psoriasis (a type of skin inflammation) Depression, major, in remission Allergic asthma Environmental allergies Chronic GERD Hypertension, essential Surgical History History of back surgery Family History Father History of heart attack Mother HTN (hypertension) Asthma Diabetes mellitus CHF (congestive heart failure) Maternal Grandmother Cancer Colon cancer Maternal Grandfather Cancer Social History Housing: House Alcohol intake: current Alcohol intake frequency: a few times a week Alcohol type: wine and hard liquor Patient Tobacco Use Status: Current everyday Tobacco user Cigarettes Per Day: 6 e-Cigarette/Vaping Use: Never Used Current occupational status: employed Cognitive needs: No Hearing needs: No Vision needs: No Questionnaire Thrive Questionnaire Date Thrive assessed: 06/11/22 AUDIT C Alcohol Use Questionnaire (AUDIT-C) 1. How often do you have a drink containing alcohol?: 2-3 times a week 2. How many drinks containing alcohol do you have on a typical day when you are drinking?: 3 or 4 3. How often do you have six or more drinks on one occasion?: Never Total Score: 4 Score Reviewed/Action Taken: Yes FERNANDO-7 AMB Questionnaire FERNANDO-7 Date FERNANDO - 7 assessed: 06/11/22 Source: Developed by Drs. Trey Bush, Aurora Roger, Amrit Espinoza and colleagues, with an educational morales from [employer]. Review of Systems Const Denies chills and Denies fever(s) ENT Denies epistaxis and Denies nasal discharge Card Denies chest pain Resp Denies chest congestion, Denies cough and Denies hemoptysis GI Denies diarrhea and Denies nausea Skin/Breast Denies rash Neuro Reports no additional complaints Psych Reports no additional complaints Endo Reports no additional complaints Physical exam (Primary Care) Vital Signs: Last Vital Signs Pulse 74 05/11/23 10:00 BP 152/84 H 05/11/23 10:00 Pulse Ox 97 05/11/23 10:00 Oxygen Delivery Method Room Air 05/11/23 10:00 BMI result Body Mass Index 34.8 Tobacco/Smoking Status: Tobacco use Status Tobacco use date assessed 05/11/23 05/11/23 10:08 Patient Tobacco Use Status Current everyday Tobacco 05/11/23 10:02 e-Cigarette/Vaping Use Never Used 05/11/23 10:02 Thrive Assessment: Date of Thrive Assessment Date Thrive assessed 06/11/22 05/11/23 10:02 Const General: cooperative, comfortable and no acute distress Orientation/consciousness: patient oriented x3 HENMT Head: Yes normocephalic Eyes General: appearance normal, both eyes and all related structures Neck Neck: Yes supple Resp Effort & Inspection: normal respiratory effort, no cough and no stridor Cardio Rhythm: regular rhythm Heart sounds: S1 normal heart sound present and S2 normal heart sound present Skin General skin exam: turgor normal Neuro General: patient oriented x3, tone normal and moves all extremities Extrem Right lower extremity: no edema Left lower extremity: no edema Assessment and Plan Assessment & Plan (1) Uncontrolled hypertension: Code(s): I10 - Essential (primary) hypertension (2) Right bundle branch block: Code(s): I45.10 - Unspecified right bundle-branch block Plan Patient is a 62-year-old female came in today to talk about her blood pressure which has been running high Patient says that she was sick a month ago and took a decongestant like Sudafed after that she started having palpitations and her blood pressure has been running high since however she has stopped taking the medication 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 She has a regular follow-up appointment coming up in May we will recheck the blood pressure that. Medications: Changed From losartan 25 mg PO DAILY 90 days 90 tabs 0RF I10 - Essential (primary) hypertension To losartan 50 mg PO DAILY 90 days 90 tabs 0RF I10 - Essential (primary) hypertension Coding Level of Care Code Est Pt Level 3 (65461) Diagnoses Uncontrolled hypertension I10 Right bundle branch block I45.10
== END 2023-05-11 11:55 | disposition home or self-care (01) ==
PROVIDERS: PCP Internal Medicine; Visit Provider Internal Medicine
DX: I10 Essential (primary) hypertension (principal); I45.10 Unspecified right bundle-branch block
CPT/HCPCS: 99213

== ENCOUNTER → 2023-05-16 09:56 | Outpatient (REF) | payer OTHER, SELFPAY ==
--- NOTE | 2023-05-16 09:59 | HM_ITS ---
* Total monitoring time 7 days. * Underlying rhythm is sinus with an average rate of 79/Min. Range 59 to 109/Min. * Rare supraventricular and ventricular ectopy. * No significant pauses or AV blocks. * Diary includes heart racing, mild pain chest/back but showing artifact. MTDD
--- NOTE | 2023-05-16 09:59 | CA_ITS ---
Transthoracic Echocardiogram Patient (Last, First, Middle): Shannan Alberto M Gender: Female Date of : 1960 Age: 62 Procedure Date: 05/16/2023 Procedure Type: Transthoracic Echocardiogram Location: OP Height: 160.02 cm Weight: 88.45 kg BSA: 1.91 m2 Heart Rate: bpm BP: 120 / 77 mmHg Boat Dispatcher: DAVID Referring MD: Sonia Pulido BOILER OPERATOR-C Dispatcher Service Chief: Fernandez Haq MD Symptoms: I45.10 - Unspecified right bundle-branch block Study Quality: Adequate ECG Rhythm: Sinus Conclusions: - 1. Normal LV ejection fraction 60 65% 2. Normal cardiac valvular Doppler 3. No gross pericardial effusion Findings Left Ventricle Normal left ventricular size, thickness, and systolic function. The visually estimated ejection fraction is between 60-65%. Spectral Doppler is indicative of a normal filling pattern. Peak GLS is -17.6%, which is borderline normal. Right Ventricle Normal right ventricular cavity size and systolic function. Atria The left atrium is normal in size. There is lipomatous hypertrophy of the interatrial septum. There is a mobile atrial septum noted. There is no evidence of interatrial shunt. The right atrium is normal in size. Aortic Valve The aortic valve structure and function is likely normal. There is no aortic valve stenosis. There is no aortic valve regurgitation. Mitral Valve Normal mitral valve structure and function. There is trace mitral valve regurgitation. There is no mitral valve stenosis. Pulmonic Valve The pulmonic valve is likely normal. Tricuspid Valve Normal tricuspid valve structure. Tricuspid regurgitation envelope is inadequate for calculation of right ventricular systolic pressure. Normal right atrial pressure. Great Vessels All visible segments of the aorta are normal in size. The pulmonary artery was not well visualized. Venous The inferior vena cava is normal in size and collapses greater than 50% with inspiration. Pericardium/Pleural There is no evidence of pericardial effusion. Prior Study Comparison No prior study available for comparison. Measurements 2D Linear Measurements IVSd: 1.06 0.6-0.9/0.6-1.0 cm LVIDd: 5.20 3.9-5.3/4.2-5.9 cm LVIDd Index: 2.72 2.4-3.2/2.2-3.1 cm/m2 LVIDs: 3.86 2.0-3.6 cm LVPWd: 0.87 0.7-1.1 cm LA Diam: 3.60 2.7-3.8/3.0-4.0 cm LAIDs Index: 1.88 1.5-2.3 cm/m2 LV Mass: 230.26 67-162/88-224 g LV Mass Index: 120.55 43-95/49-115 g/m2 LVOT Diam: 2.00 3.0+(-)1.3 cm 2D Systolic Function EF 4C: 53.40 >55% EF 2C: 67.30 >55% EF BiP: 60.30 >55% Mitral Valve MV Pk E: 0.74 MV PK A: 0.66 MV Decel Time: 145.00 E/A: 1.10 E'Lateral: 11.60 E'Medial: 7.72 E/E' Med: 9.60 E/E' Lat: 6.40 PHT: 43.00 MVA PHT: 5.12 Decel Parmer: 5.10 Aortic Valve AoV Pk Edwin: 1.36 AoV Mn Edwin: 0.90 AoV VTI: 0.29 AoV Pk Grad: 7.00 Aov Mn Grad: 4.00 MALKA Cont.VTI: 2.18 LVOT LVOT Pk Edwin: 0.86 LVOT Mn Edwin: 0.59 LVOT VTI: 0.20 LVOT Pk Grad: 3.00 LVOT Mn Grad: 2.00 LVOT Diam: 2.00 LVOT Area: 3.14 Diastolic Function MV Pk E: 0.74 MV Pk A: 0.66 E/A: 1.10 E'Medial: 7.72 E/E' Med: 9.60 E' Laterial: 11.60 E/E' Lat: 6.40 Right Ventricle TAPSE (mm): 20.40 TVS' Edwin: 12.20 Tricuspid Valve RA Press: 3.00 Great Vessels Aorta Sinus of Valsalva: 3.26 2.0-3.[address] [place]: 2.57 1.7-3.4 cm Ao Asc: 3.10 2.1-3.4 cm Updated in Other Vendor System with Status of Final Fernandez Haq MD electronically signed on 05/16/2023 5:29:59 PM with status of Final
== END ==
LOC: HO.CARD 09:56
PROVIDERS: Visit Provider Nurse Practitioner Family
DX: I10 Essential (primary) hypertension (principal); I45.10 Unspecified right bundle-branch block; R00.2 Palpitations
CPT/HCPCS: 93242; 93306; 93356

== ENCOUNTER → 2023-05-16 09:59 | Outpatient (BNV) | payer OTHER, SELFPAY | PROVIDERS: Visit Provider Internal Medicine Cardiovascular Disease | DX: R00.2 Palpitations (principal); I45.10 Unspecified right bundle-branch block | CPT/HCPCS: 93244; 93306 ==

== ENCOUNTER 2023-06-13 13:03 | Outpatient (AMB) | payer OTHER, SELFPAY ==
--- NOTE | 2023-06-13 13:08 | A.OFFVIS_ITS ---
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: No Allergies Seasonal Allergies Allergy (Mild, Verified 06/13/23 13:12) Sneezing eggs Allergy (Mild, Uncoded 09/10/22 09:12) Unknown Medication List - Last Reconciled 06/13/23 by Sonia Pulido, VITALIY-C albuterol sulfate 90 mcg/actuation (ProAir HFA) 2 puffs inhalation Q6H PRN 30 days alprazolam 0.25 mg PO DAILY PRN 90 days budesonide-formoterol 160-4.5 mcg/actuation (Symbicort) 2 puffs PO BID bupropion HCl (Wellbutrin XL) 150 mg PO QAM 90 days cetirizine (Zyrtec) 10 mg PO DAILY coenzyme Q10 400 mg PO DAILY fluticasone propionate 50 mcg/actuation (Flonase Allergy Relief) 1 spray intranasal DAILY hydrochlorothiazide 50 mg PO DAILY losartan 50 mg PO DAILY 90 days montelukast 10 mg PO DAILY omega-3 fatty acids 1,000 mg PO DAILY omeprazole 20 mg PO DAILY 90 days red yeast rice 1,200 mg PO DAILY tacrolimus 0.1% topical BID HPI 6 wk f/up holter/ echo HPI Details . Shannan is a 62-year-old female with past medical history of hypertension, hyperlipidemia, obesity, right bundle branch block who is being evaluated for heart palpitations. She recently underwent echocardiogram and Holter monitor and now presents for follow-up. Today she reports that her heart palpitations have greatly lessened. She is overall feeling much better. She denies any chest discomfort at rest or with activity. No shortness of breath, palpitations, presyncope, syncope, PND, orthopnea or edema. She reports good activity tolerance. Takes all meds as directed. [facility] Medical History Psoriasis (a type of skin inflammation) Depression, major, in remission Allergic asthma Environmental allergies Chronic GERD Hypertension, essential Surgical History History of back surgery Family History Father History of heart attack Mother HTN (hypertension) Asthma Diabetes mellitus CHF (congestive heart failure) Maternal Grandmother Cancer Colon cancer Maternal Grandfather Cancer Social History Housing: House Alcohol intake: current Alcohol intake frequency: a few times a week Alcohol type: wine and hard liquor Patient Tobacco Use Status: Current everyday Tobacco user Cigarettes Per Day: 6 e-Cigarette/Vaping Use: Never Used Current occupational status: employed Cognitive needs: No Hearing needs: No Vision needs: No Review of Systems Const All systems reviewed & are unremarkable except as noted in HPI and below ENT Denies dizziness Card Denies chest pain, Denies chest pain at rest, Denies chest pain with activity, Denies rapid heart rate, Denies pedal edema, Denies edema, Denies leg edema, Denies lightheadedness, Denies palpitations, Denies dyspnea, Denies dyspnea on exertion and Denies orthopnea Resp Denies cough, Denies dyspnea and Denies dyspnea on exertion GI Denies hematochezia and Denies change in stool character Musc Denies abnormal gait, Denies limited range of motion, Denies muscle cramps, Denies muscle weakness, Denies numbness, Denies radiating pain into limb, Denies stiffness and Denies tingling Neuro Denies abnormal gait, Denies dizziness, Denies numbness and Denies tingling Endo Denies palpitations Physical Exam Vital Signs: Last Vital Signs Pulse 69 06/13/23 13:09 BP 146/74 H 06/13/23 13:09 BMI result Body Mass Index 35.1 Const General: cooperative, healthy appearing, comfortable and no acute distress Orientation/consciousness: patient oriented x3 Neck Neck: Yes normal visual inspection and Yes no JVD Resp Effort & Inspection: normal respiratory effort Auscultation: clear to auscultation bilaterally, no crackles, no rales, no rhonchi and no wheezes Cardio Jugular venous distension: no JVD Rate: regular rate Rhythm: regular rhythm Heart sounds: S1 normal heart sound present, S2 normal heart sound present, no murmurs and no rubs Neuro General: patient oriented x3 Extrem General: Yes normal to inspection, No no pedal edema and No calf tenderness Psych Appearance: grossly normal Mental Status: mental status grossly normal Speech and movement: Normal speech and movement present Assessment & Plan Assessment & Plan (1) Palpitations: Code(s): R00.2 - Palpitations Plan: Previously Reported heart palpitations which feel like a strong punch to her chest and can occur for minutes and on and off for hours. No associated symptoms of lightheadedness or shortness of breath. No history of presyncope, syncope. ER evaluation on 04/04/2023 for this symptom. EKG shows sinus rhythm with right bundle branch block, rate 83. ER notes indicate occasional PVCs, normal WI, QRS and QTC intervals. Lab work reviewed with no significant abnormalities, no anemia, TSH 1.01, potassium 3.6. Holter monitor done on 05/16/2023 for 7 days shows sinus rhythm with average heart rate 79, rare SVE and VE. Echocardiogram done 05/16/2023 shows EF 60-65%, no valve abnormalities and no regional wall motion abnormality. Today she reports her heart palpitations have lessened. She no longer has any significant concerns. She was likely feeling extrasystoles more likely PVCs. Reviewed this with her. Reviewed reduction in caffeinated beverages, increasing physical activity as tolerated, benefits of weight loss. (2) Right bundle branch block: Code(s): I45.10 - Unspecified right bundle-branch block Plan: Finding of right bundle branch block on EKG. No prior EKG for comparison. Unknown if this is a new finding. Echocardiogram showing normal EF and no regional wall motion abnormalities. She has no anginal symptoms. Will hold off on stress testing at this time. Cardiology follow-up with EKG in 1 year, sooner if needed (3) Hypertension, essential: Code(s): I10 - Essential (primary) hypertension Plan: Elevated this visit. She tells me her blood pressure is up and down. She monitors it at home and it is usually in normal range. Will continue on current meds, hydrochlorothiazide and losartan. No med changes made today. She will continue to follow with her PCP Plan Time spent on chart review, documentation, interview assess Coding Level of Care Code Est Pt Level 3 (19793) Diagnoses Palpitations R00.2 Right bundle branch block I45.10 Hypertension, essential I10 Time Spent (min) 22
[2023-06-13 13:09] VITALS: BP 146/74; PULSE 69; BMI 35.1
== END 2023-06-13 15:03 | disposition home or self-care (01) ==
PROVIDERS: PCP Internal Medicine; Visit Provider Nurse Practitioner Family
DX: R00.2 Palpitations (principal); I45.10 Unspecified right bundle-branch block; I10 Essential (primary) hypertension
CPT/HCPCS: 99213

== ENCOUNTER → 2023-06-13 13:03 | Outpatient (BNVA) | payer OTHER, SELFPAY | PROVIDERS: PCP Internal Medicine; Visit Provider Nurse Practitioner Family ==

== ENCOUNTER 2023-06-17 11:59 | Outpatient (AMB) | payer OTHER, SELFPAY ==
[2023-06-17 12:06] VITALS: BP 140/74; PULSE 78; O2SAT 97; BMI 35.1
--- NOTE | 2023-06-17 12:06 | A.OFFPC_ITS ---
Vital Signs 06/17/23 12:06 Height 5 ft 3 in Weight 198 lb BMI 35.1 BP 140/74 H Blood Pressure Location Lt brachial Position Sitting Pulse 78 Pulse Source Pulse Oximeter Pulse Oximetry (%) 97 Intake Visit Reasons: 6m follow up Mat Inspector Required: No Allergies Seasonal Allergies Allergy (Mild, Verified 06/17/23 12:08) Sneezing eggs Allergy (Mild, Uncoded 09/10/22 09:12) Unknown Medication List - Last Reconciled 06/17/23 by Annita Malloy MD albuterol sulfate 90 mcg/actuation (ProAir HFA) 2 puffs inhalation Q6H PRN 30 days alprazolam 0.25 mg PO DAILY PRN 90 days budesonide-formoterol 160-4.5 mcg/actuation (Symbicort) 2 puffs PO BID bupropion HCl (Wellbutrin XL) 150 mg PO QAM 90 days cetirizine (Zyrtec) 10 mg PO DAILY coenzyme Q10 400 mg PO DAILY fluticasone propionate 50 mcg/actuation (Flonase Allergy Relief) 1 spray intranasal DAILY hydrochlorothiazide 50 mg PO DAILY losartan 50 mg PO DAILY 90 days montelukast 10 mg PO DAILY omega-3 fatty acids 1,000 mg PO DAILY omeprazole 20 mg PO DAILY 90 days red yeast rice 1,200 mg PO DAILY tacrolimus 0.1% topical BID Tobacco use date assessed: 06/17/23 Fall risk assessment: No Falls in past year Last assessed Fall Risk: 06/17/23 Dental Screening Dental Screen Date: 06/17/23 Did you have a dental visit in the last 12 months?: Yes Did you have a dental problem in the last 6 months where you did not have access to dental care?: No Was dental information given to patient?: Patient has dentist HPI 6m follow up HPI Details Patient is 62-year-old female with a history of Hypertension, chronic GERD, allergies, allergic asthma, depression, psoriasis, varicose veins of lower extremity, impaired fasting sugar, lipid disorder, bladder disorder, obesity, right bundle branch block Came in for regular follow-up appointment Patient says that she would like to take Semaglutide, she is obese and need to lose about 40 lb I have talked about side effects of medication including pancreatitis and thyroid cancer I have sent the script, once patient picks it up she is to give us a call so we can book her a visit with the nurse She does not know how to inject herself. After that she will need a visit in 4 weeks for monitoring She has cut down on smoking to 4 cigarettes a day now. Blood pressure continued to be elevated I am increasing the dose of losartan 50 mg that she is taking once a day to b.i.d. She may continue hydrochlorothiazide 50 mg daily. Lab order placed to be done before next visit Asthma is stable patient is using her inhaler regularly Depression and anxiety stable Allergies are stable Continued to take omeprazole but she has cut it down to 2 times a week Also tells me that she wakes up in the middle of the night with wheezing I have told her to start taking omeprazole regularly again, it can not be untreated reflux at night that is causing wheezing Follow-up August Medical History Psoriasis (a type of skin inflammation) Depression, major, in remission Allergic asthma Environmental allergies Chronic GERD Hypertension, essential Surgical History History of back surgery Family History Father History of heart attack Mother HTN (hypertension) Asthma Diabetes mellitus CHF (congestive heart failure) Maternal Grandmother Cancer Colon cancer Maternal Grandfather Cancer Social History Housing: House Alcohol intake: current Alcohol intake frequency: a few times a week Alcohol type: wine and hard liquor Patient Tobacco Use Status: Current everyday Tobacco user Cigarettes Per Day: 6 e-Cigarette/Vaping Use: Never Used Current occupational status: employed Cognitive needs: No Hearing needs: No Vision needs: No Questionnaire PHQ-9 Over the last 2 weeks, how often have you been bothered by any of the following problems? 1. Little interest or pleasure in doing things: not at all 2. Feeling down, depressed, or hopeless: not at all 3. Trouble falling or staying asleep, or sleeping too much: not at all 4. Feeling tired or having little energy: not at all 5. Poor appetite or overeating: several days 6. Feeling bad about yourself - or that you are a failure or have let yourself or your family down: not at all 7. Trouble concentrating on things, such as reading the newspaper or watching t elevision: not at all 8. Moving or speaking so slowly that other people could have noticed. Or the opposite - being so fidgety or restless that you have been moving around a lot more than usual: not at all 9. Thoughts that you would be better off or of hurting yourself in some way: not at all Total score: 1 Depression Screening Interpretation: Negative Depression Screening Done: Yes 88251 - PHQ-9 Billing: Yes Source: Developed by Drs. Trey Bush, Aurora Roger, Amrit Espinoza and colleagues, with an educational morales from [employer]. Thrive Questionnaire Date Thrive assessed: 06/11/22 I am a: Patient What is your living situation today?: I have a steady place to live Within the past 12 months, did the food you bought not last and you didn't have the money to get more?: Never true Within the past 12 months, did you worry whether your food would run out before you got money to buy more?: Never true Currently or been in a relationship where the following occur: no concerns reported THRIVE Score: 0 AUDIT C Alcohol Use Questionnaire (AUDIT-C) 1. How often do you have a drink containing alcohol?: 2-3 times a week 2. How many drinks containing alcohol do you have on a typical day when you are drinking?: 1 or 2 3. How often do you have six or more drinks on one occasion?: Never Total Score: 3 Score Reviewed/Action Taken: No FERNANDO-7 AMB Questionnaire FERNANDO-7 Date FERNANDO - 7 assessed: 06/11/22 Feeling nervous, anxious, or on edge: 0 = Not at all Not being able to stop or control worryin = Not at all Worrying too much about different things: 0 = Not at all Trouble relaxin = Not at all Being so restless that it is hard to sit still: 0 = Not at all Becoming easily annoyed or irritable: 0 = Not at all Feeling afraid as if something awful might happen: 0 = Not at all Total FERNANDO-7 score (0-4 normal; 5-9 mild; 10-14 moderate; 15-21 severe): 0 Source: Developed by Drs. Trey Bush, Aurora Roger, Amrit Espinoza and colleagues, with an educational morales from [employer]. FERNANDO-7 Assessment Billing FERNANDO-7 Assessment Tool: FERNANDO-7 Assessment 11982 Review of Systems Const Denies chills and Denies fever(s) ENT Denies epistaxis and Denies nasal discharge Card Denies chest pain Resp Denies chest congestion, Denies cough and Denies hemoptysis GI Denies diarrhea and Denies nausea Skin/Breast Denies rash Neuro Reports no additional complaints Psych Reports no additional complaints Endo Reports no additional complaints Physical exam (Primary Care) Vital Signs: Last Vital Signs Pulse 78 06/17/23 12:06 BP 140/74 H 06/17/23 12:06 Pulse Ox 97 06/17/23 12:06 BMI result Body Mass Index 35.1 Tobacco/Smoking Status: Tobacco use Status Tobacco use date assessed 06/17/23 06/17/23 12:10 Patient Tobacco Use Status Current everyday Tobacco 06/17/23 12:10 e-Cigarette/Vaping Use Never Used 06/17/23 12:10 Depression Screening Interpretation: Negative Thrive Assessment: Date of Thrive Assessment Date Thrive assessed 06/11/22 06/17/23 12:10 Currently or been in a relationship where the following occur: no concerns reported Const General: cooperative, comfortable and no acute distress Orientation/consciousness: patient oriented x3 HENMT Head: Yes normocephalic Eyes General: appearance normal, both eyes and all related structures Neck Neck: Yes supple Resp Effort & Inspection: normal respiratory effort, no cough and no stridor Cardio Rhythm: regular rhythm Heart sounds: S1 normal heart sound present and S2 normal heart sound present Skin General skin exam: turgor normal Neuro General: patient oriented x3, tone normal and moves all extremities Extrem Right lower extremity: no edema Left lower extremity: no edema Assessment and Plan Assessment & Plan (1) Hypertension, essential: Code(s): I10 - Essential (primary) hypertension (2) Chronic GERD: Code(s): K21.9 - Gastro-esophageal reflux disease without esophagitis (3) Environmental allergies: Code(s): Z91.09 - Other allergy status, other than to drugs and biological substances (4) Allergic asthma: Code(s): J45.909 - Unspecified asthma, uncomplicated Qualifiers: Asthma severity: moderate Asthma persistence: persistent Asthma complication type: uncomplicated Qualified Code(s): J45.40 - Moderate persisten t asthma, uncomplicated (5) Depression, major, in remission: Code(s): F32.5 - Major depressive disorder, single episode, in full remission (6) Psoriasis (a type of skin inflammation): Code(s): L40.9 - Psoriasis, unspecified (7) Varicose veins of left lower extremity with inflammation: Code(s): I83.12 - Varicose veins of left lower extremity with inflammation (8) Asthma, moderate persistent: Code(s): J45.40 - Moderate persistent asthma, uncomplicated Qualifiers: Asthma complication type: uncomplicated Qualified Code(s): J45.40 - Moderate persistent asthma, uncomplicated (9) Impaired fasting blood sugar: Code(s): R73.01 - Impaired fasting glucose (10) Lipid disorder: Code(s): E78.9 - Disorder of lipoprotein metabolism, unspecified (11) Frequency of urination: Code(s): R35.0 - Frequency of micturition (12) Obesity due to excess calories: Code(s): E66.09 - Other obesity due to excess calories Qualifiers: Obesity classification: adult class 2 (BMI 35 - 39.9) Serious obesity comorbidity presence: with serious comorbidity Body mass index: BMI 35.0-35.9 Qualified Code(s): E66.01 - Morbid (severe) obesity due to excess calories; Z68.35 - Body mass index [BMI] 35.0-35.9, adult (13) Right bundle branch block: Code(s): I45.10 - Unspecified right bundle-branch block Plan Patient is 62-year-old female with a history of Hypertension, chronic GERD, allergies, allergic asthma, depression, psoriasis, varicose veins of lower extremity, impaired fasting sugar, lipid disorder, bladder disorder, obesity, right bundle branch block Came in for regular follow-up appointment Patient says that she would like to take Semaglutide, she is obese and need to lose about 40 lb I have talked about side effects of medication including pancreatitis and thyroid cancer I have sent the script, once patient picks it up she is to give us a call so we can book her a visit with the nurse She does not know how to inject herself. After that she will need a visit in 4 weeks for monitoring She has cut down on smoking to 4 cigarettes a day now. Blood pressure continued to be elevated I am increasing the dose of losartan 50 mg that she is taking once a day to b.i.d. She may continue hydrochlorothiazide 50 mg daily. Lab order placed to be done before next visit Asthma is stable patient is using her inhaler regularly Depression and anxiety stable Allergies are stable Continued to take omeprazole but she has cut it down to 2 times a week Also tells me that she wakes up in the middle of the night with wheezing I have told her to start taking omeprazole regularly again, it can not be untreated reflux at night that is causing wheezing Follow-up August ?? Orders: Orders Comprehensive [place]. Panel Fast Today E66.09 - Other obesity due to excess calories, E78.9 - Disorder of lipoprotein metabolism, unspecified, F32.5 - Major depressive disorder, single episode, in full remission, I10 - Essential (primary) hypertension, I83.12 - Varicose veins of left lower extremity with inflammation, J45.40 - Moderate persistent asthma, uncomplicated, J45.909 - Unspecified asthma, uncomplicated, K21.9 - Gastro-esophageal reflux disease without esophagitis, L40.9 - Psoriasis, unspecified, R35.0 - Frequency of micturition, R73.01 - Impaired fasting glucose, Z91.09 - Other allergy status, other than to drugs and biological substances Complete Blood Count Auto Diff Today E66.09 - Other obesity due to excess calories, E78.9 - Disorder of lipoprotein metabolism, unspecified, F32.5 - Major depressive disorder, single episode, in full remission, I10 - Essential (primary) hypertension, I83.12 - Varicose veins of left lower extremity with inflammation, J45.40 - Moderate persistent asthma, uncomplicated, J45.909 - Unspecified asthma, uncomplicated, K21.9 - Gastro-esophageal reflux disease without esophagitis, L40.9 - Psoriasis, unspecified, R35.0 - Frequency of micturition, R73.01 - Impaired fasting glucose, Z91.09 - Other allergy status, other than to drugs and biological substances Lipid Panel Today E66.09 - Other obesity due to excess calories, E78.9 - Disorder of lipoprotein metabolism, unspecified, F32.5 - Major depressive disorder, single episode, in full remission, I10 - Essential (primary) hypertension, I83.12 - Varicose veins of left lower extremity with inflammation, J45.40 - Moderate persistent asthma, uncomplicated, J45.909 - Unspecified asthma, uncomplicated, K21.9 - Gastro-esophageal reflux disease without esophagitis, L40.9 - Psoriasis, unspecified, R35.0 - Frequency of micturition, R73.01 - Impaired fasting glucose, Z91.09 - Other allergy status, other than to drugs and biological substances Medications: New semaglutide for 4 weeks 0.25 mg (0.368 mL) subcut QWEEK 30 days 2 mL 0RF Changed From losartan 50 mg PO DAILY 90 days 90 tabs 0RF I10 - Essential (primary) hypertension To losartan 50 mg PO BID 90 days 180 tabs 0RF I10 - Essential (primary) hyp ertension Coding Level of Care Code Est Pt Level 4 (54241) Diagnoses Hypertension, essential I10 Chronic GERD K21.9 Environmental allergies Z91.09 Moderate persistent extrinsic asthma without complication J45.40 Asthma severity: moderate Asthma persistence: persistent Asthma complication type: uncomplicated Depression, major, in remission F32.5 Psoriasis (a type of skin inflammation) L40.9 Varicose veins of left lower extremity with inflammation I83.12 Moderate persistent asthma without complication J45.40 Asthma complication type: uncomplicated Impaired fasting blood sugar R73.01 Lipid disorder E78.9 Frequency of urination R35.0 Class 2 severe obesity due to excess calories with serious comorbidity and body mass index (BMI) of 35.0 to 35.9 in adult E66.01; Z68.35 Obesity classification: adult class 2 (BMI 35 - 39.9) Serious obesity comorbidity presence: with serious comorbidity Body mass index: BMI 35.0-35.9 Right bundle branch block I45.10 Additional Codes FERNANDO-7 Assessment Billing - FERNANDO-7 Assessment Tool: FERNANDO-7 Assessment [id number] ([id number])
== END 2023-06-17 13:30 | disposition home or self-care (01) ==
PROVIDERS: PCP Internal Medicine; Visit Provider Internal Medicine
DX: I10 Essential (primary) hypertension (principal); F32.5 Major depressive disorder, single episode, in full remission; E66.01 Morbid (severe) obesity due to excess calories; Z68.35 Body mass index [BMI] 35.0-35.9, adult; K21.9 Gastro-esophageal reflux disease without esophagitis; Z91.09 Other allergy status, other than to drugs and biological substances; J45.40 Moderate persistent asthma, uncomplicated; L40.9 Psoriasis, unspecified; I83.12 Varicose veins of left lower extremity with inflammation; R73.01 Impaired fasting glucose; E78.9 Disorder of lipoprotein metabolism, unspecified; R35.0 Frequency of micturition
CPT/HCPCS: 99214

== ENCOUNTER 2023-07-05 09:42 | Outpatient (REF) | payer OTHER, SELFPAY ==
--- NOTE | ~2023-07-05 | CT_ITS ---
EXAMINATION: CT CHEST LOW-DOSE SCREENING WITHOUT CONTRAST HISTORY: Asymptomatic patient meeting criteria for lung screening. PATIENT PACK-YEAR HISTORY: 44 Current Smoker: Yes If former smoker, years since quitting: COMPARISON: 06/10/2022 and 06/05/2021 and 08/04/2018 TECHNIQUE: Multidetector volumetric non-contrast CT imaging of the chest was performed using low dose screening CT technique. Axial thin section 0.625 mm reformations in soft tissue and lung windows were obtained. Sagittal and coronal reformations were obtained. Axial MIP images were also created and reviewed. RECONSTRUCTED WIDTH: 1.25 mm x 1.25 mm TOTAL EXAM DLP: 100 mGy-cm CTDIvol: 3.01 L mGy FINDINGS: LUNGS: Mild centrilobular emphysema. 2.5 x 2.4 cm subsolid lesion in the right upper lobe on image 131 of series 5. There is associated pleural retraction. This lesion measured 2.4 x 2.1 cm on 06/10/2022. This lesion measured 2.3 x 2.0 cm on series 12/16/2021. This lesion measured 2.1 x 1.8 cm on 08/04/2018. No focal consolidation. Central airways are patent. PLEURA: No pleural effusion. LYMPH NODES: No bulky mediastinal, hilar or axillary lymphadenopathy. MEDIASTINUM: Great vessels are of normal caliber. Heart size is normal. No pericardial effusion. CORONARY ARTERY CALCIFICATIONS: Mild. CHEST WALL/BREASTS: No acute abnormality. UPPER ABDOMEN: This study was performed without contrast and with lower than standard dose, reducing the sensitivity for detection of small lesions in the upper abdomen. OSSEOUS STRUCTURES: No destructive bone lesions. CT/CT lung screening IMPRESSION: Slow continued interval growth of subsolid nodule in the right upper lobe measuring 2.5 x 2.4 cm on the current study. LUNG-RADS CATEGORY ASSESSMENT: 4B. Suspicious. Findings for which additional diagnostic testing and/or tissue sampling is recommended. Chest CT scan with or without contrast, PET CT scan and/or tissue sampling depending on the probability of malignancy and comorbidities. PET CT scan may be used when there is a greater than or equal to 8 mm solid component. Probability of malignancy greater than 15%. INCIDENTAL FINDINGS (S CATEGORY): Finding: No incidental findings. Significance category: Normal or normal variant. RECOMMENDATION: Chest CT scan with or without contrast, PET CT scan and/or tissue sampling depending on the probability of malignancy and comorbidities. Consider consultation with thoracic surgery. Visual estimate of coronary calcified plaque burden: Mild. However, this exam cannot replace a dedicated cardiac CT calcium score for accurate assessment. LUNG-RADS CATEGORY: 4B -- SUSPICIOUS
== END 2023-07-05 09:43 | disposition home or self-care (01) ==
LOC: HO.CT 09:42
PROVIDERS: PCP Internal Medicine; Visit Provider Nurse Practitioner Family
DX: Z12.2 Encounter for screening for malignant neoplasm of respiratory organs (principal); F17.210 Nicotine dependence, cigarettes, uncomplicated
CPT/HCPCS: 71271

== ENCOUNTER 2023-07-13 12:57 | Outpatient (AMB) | payer OTHER, SELFPAY ==
[2023-07-13 13:00] VITALS: BP 128/72; PULSE 73; O2SAT 98; BMI 34.5
--- NOTE | 2023-07-13 13:00 | A.OFFPC_ITS ---
Vital Signs 07/13/23 13:00 Height 5 ft 3 in Weight 195 lb BMI 34.5 BP 128/72 Blood Pressure Location Lt brachial Position Sitting Pulse 73 Pulse Source Pulse Oximeter Pulse Oximetry (%) 98 Oxygen Delivery Method Room Air Intake Visit Reasons: 4 week Follow Up Medication Allergies Seasonal Allergies Allergy (Mild, Verified 07/13/23 13:02) Sneezing eggs Allergy (Mild, Uncoded 07/13/23 13:02) Unknown Medication List - Last Reconciled 07/13/23 by Annita Malloy MD albuterol sulfate 90 mcg/actuation (ProAir HFA) 2 puffs inhalation Q6H PRN 30 days alprazolam 0.25 mg PO DAILY PRN 90 days budesonide-formoterol 160-4.5 mcg/actuation (Symbicort) 2 puffs PO BID bupropion HCl (Wellbutrin XL) 150 mg PO QAM 90 days cetirizine (Zyrtec) 10 mg PO DAILY coenzyme Q10 400 mg PO DAILY fluticasone propionate 50 mcg/actuation (Flonase Allergy Relief) 1 spray intranasal DAILY hydrochlorothiazide 50 mg PO DAILY losartan 50 mg PO BID 90 days montelukast 10 mg PO DAILY omega-3 fatty acids 1,000 mg PO DAILY omeprazole 20 mg PO DAILY 90 days red yeast rice 1,200 mg PO DAILY semaglutide 0.25 mg (0.368 mL) subcut QWEEK 30 days tacrolimus 0.1% topical BID Tobacco use date assessed: 06/17/23 HPI 4 week Follow Up Medication HPI Details Follow-up obesity Patient was started on semaglutide 0.25 mg injections She is tolerating medication no side effects, Patient is an ex-smoker she just stopped smoking a week ago She has seen thoracic surgeon and had low resolution CT scan as a lung cancer screening which showed Chest CT scan with or without contrast, PET CT scan and/or tissue sampling depending on the probability of malignancy and comorbidities. Consider consultation with thoracic surgery. Visual estimate of coronary calcified plaque burden: Mild. However, this exam cannot replace a dedicated cardiac CT calcium score for accurate assessment. Dr. Singh has moved to [facility], patient will call her insurance company to see if she can still see And will let me know if she needs any paperwork sent over. She has appointment with me in August, labs needs to be repeated Meanwhile she may continue semaglutide injections [facility] Medical History Psoriasis (a type of skin inflammation) Depression, major, in remission Allergic asthma Environmental allergies Chronic GERD Hypertension, essential Surgical History History of back surgery Family History Father History of heart attack Mother HTN (hypertension) Asthma Diabetes mellitus CHF (congestive heart failure) Maternal Grandmother Cancer Colon cancer Maternal Grandfather Cancer Social History Housing: House Alcohol intake: current Alcohol intake frequency: a few times a week Alcohol type: wine and hard liquor Patient Tobacco Use Status: Current everyday Tobacco user Cigarettes Per Day: 6 e-Cigarette/Vaping Use: Never Used Current occupational status: employed Cognitive needs: No Hearing needs: No Vision needs: No Questionnaire Thrive Questionnaire Date Thrive assessed: 06/11/22 FERNANDO-7 AMB Questionnaire FERNANDO-7 Date FERNANDO - 7 assessed: 06/11/22 Source: Developed by Drs. Trey Bush, Aurora Roger, Amrit Espinoza and colleagues, with an educational morales from [employer]. Review of Systems Const Denies chills and Denies fever(s) ENT Denies epistaxis and Denies nasal discharge Card Denies chest pain Resp Denies chest congestion and Denies hemoptysis GI Denies diarrhea and Denies nausea Skin/Breast Denies rash Neuro Reports no additional complaints Psych Reports no additional complaints Endo Reports no additional complaints Physical exam (Primary Care) Vital Signs: Last Vital Signs Pulse 73 07/13/23 13:00 BP 128/72 07/13/23 13:00 Pulse Ox 98 07/13/23 13:00 Oxygen Delivery Method Room Air 07/13/23 13:00 BMI result Body Mass Index 34.5 Tobacco/Smoking Status: Tobacco use Status Tobacco use date assessed 06/17/23 07/13/23 13:03 Patient Tobacco Use Status Current everyday Tobacco 07/13/23 13:03 e-Cigarette/Vaping Use Never Used 07/13/23 13:03 Thrive Assessment: Date of Thrive Assessment Date Thrive assessed 06/11/22 07/13/23 13:03 Const General: cooperative, comfortable and no acute distress Orientation/consciousness: patient oriented x3 HENMT Head: Yes normocephalic Eyes General: appearance normal, both eyes and all related structures Neck Neck: Yes supple Resp Effort & Inspection: normal respiratory effort, no cough and no stridor Cardio Rhythm: regular rhythm Heart sounds: S1 normal heart sound present and S2 normal heart sound present Skin General skin exam: turgor normal Neuro General: patient oriented x3, tone normal and moves all extremities Extrem Right lower extremity: no edema Left lower extremity: no edema Assessment and Plan Assessment & Plan (1) Obesity due to excess calories: Code(s): E66.09 - Other obesity due to excess calories Qualifiers: Obesity classification: adult class 2 (BMI 35 - 39.9) Serious obesity comorbidity presence: with serious comorbidity Body mass index: BMI 35.0-35.9 Qualified Code(s): E66.01 - Morbid (severe) obesity due to excess calories; Z68.35 - Body mass index [BMI] 35.0-35.9, adult (2) Lipid disorder: Code(s): E78.9 - Disorder of lipoprotein metabolism, unspecified (3) Impaired fasting blood sugar: Code(s): R73.01 - Impaired fasting glucose (4) Hypertension, essential: Code(s): I10 - Essential (primary) hypertension (5) Chronic GERD: Code(s): K21.9 - Gastro-esophageal reflux disease without esophagitis (6) Lesion of lung: Code(s): R91.1 - Solitary pulmonary nodule (7) Ex-smoker: Code(s): Z87.891 - Personal history of nicotine dependence Plan Follow-up obesity Patient was started on semaglutide 0.25 mg injections She is tolerating medication no side effects, Patient is an ex-smoker she just stopped smoking a week ago She has seen thoracic surgeon and had low resolution CT scan as a lung cancer screening which showed Chest CT scan with or without contrast, PET CT scan and/or tissue sampling depending on the probability of malignancy and comorbidities. Consider consultation with thoracic surgery. Visual estimate of coronary calcified plaque burden: Mild. However, this exam cannot replace a dedicated cardiac CT calcium score for accurate assessment. Dr. Singh has moved to [facility], patient will call her insurance company to see if she can still see And will let me know if she needs any paperwork sent over. She has appointment with me in August, labs needs to be repeated Meanwhile she may continue semaglutide injections Orders: Orders Complete Blood Count Auto Diff Today E66.09 - Other obesity due to excess calories, E78.9 - Disorder of lipoprotein metabolism, unspecified, I10 - Essential (primary) hypertension, K21.9 - Gastro-esophageal reflux disease without esophagitis, R73.01 - Impaired fasting glucose Comprehensive Met. Panel Today E66.09 - Other obesity due to excess calories, E78.9 - Disorder of lipoprotein metabolism, unspecified, I10 - Essential (primary) hypertension, K21.9 - Gastro-esophageal reflux disease without esophagitis, R73.01 - Impaired fasting glucose TSH reflex Free T4 Today E66.09 - Other obesity due to excess calories, E78.9 - Disorder of lipoprotein metabolism, unspecified, I10 - Essential (primary) hypertension, K21.9 - Gastro-esophageal reflux disease without esophagitis, R73.01 - Impaired fasting glucose LDL Cholesterol Direct Today E66.09 - Other obesity due to excess calories, E78.9 - Disorder of lipoprotein metabolism, unspecified, I10 - Essential (primary) hypertension, K21.9 - Gastro-esophageal reflux disease without esophagitis, R73.01 - Impaired fasting glucose Medications: Refilled semaglutide for 4 weeks 0.25 mg (0.368 mL) subcut QWEEK 30 days 2 mL 2RF Coding Level of Care Code Est Pt Level 3 (74211) Diagnoses Class 2 severe obesity due to excess calories with serious comorbidity and body mass index (BMI) of 35.0 to 35.9 in adult E66.01; Z68.35 Obesity classification: adult class 2 (BMI 35 - 39.9) Serious obesity comorbidity presence: with serious comorbidity Body mass index: BMI 35.0-35.9 Lipid disorder E78.9 Impaired fasting blood sugar R73.01 Hypertension, essential I10 Chronic GERD K21.9 Lesion of lung R91.1 Ex-smoker Z87.895
== END 2023-07-13 14:11 | disposition home or self-care (01) ==
PROVIDERS: PCP Internal Medicine; Visit Provider Internal Medicine
DX: E66.01 Morbid (severe) obesity due to excess calories (principal); Z68.35 Body mass index [BMI] 35.0-35.9, adult; E78.9 Disorder of lipoprotein metabolism, unspecified; R73.01 Impaired fasting glucose; I10 Essential (primary) hypertension; K21.9 Gastro-esophageal reflux disease without esophagitis; R91.1 Solitary pulmonary nodule; Z87.891 Personal history of nicotine dependence
CPT/HCPCS: 99213

== ENCOUNTER 2023-09-02 09:59 | Outpatient (AMB) | payer OTHER, SELFPAY ==
--- NOTE | 2023-09-02 10:01 | A.OFFPC_ITS ---
Vital Signs 09/02/23 10:03 Height 5 ft 3 in Weight 191 lb BMI 33.8 BP 124/72 Blood Pressure Location Rt brachial Position Sitting Pulse 70 Pulse Source Pulse Oximeter Pulse Oximetry (%) 98 Oxygen Delivery Method Room Air Intake Visit Reasons: Pre Op/Lung surgery 09/06/2023 Allergies Seasonal Allergies Allergy (Mild, Verified 09/02/23 10:03) Sneezing eggs Allergy (Mild, Uncoded 09/02/23 10:03) Unknown Medication List - Last Reconciled 09/02/23 by Annita Malloy MD albuterol sulfate 90 mcg/actuation (ProAir HFA) 2 puffs inhalation Q6H PRN 30 days alprazolam 0.25 mg PO DAILY PRN 90 days budesonide-formoterol 160-4.5 mcg/actuation (Symbicort) 2 puffs PO BID bupropion HCl XL (Wellbutrin XL) 150 mg PO QAM 90 days cetirizine (Zyrtec) 10 mg PO DAILY coenzyme Q10 400 mg PO DAILY fluticasone propionate 50 mcg/actuation (Flonase Allergy Relief) 1 spray intranasal DAILY hydrochlorothiazide 50 mg PO DAILY losartan 50 mg PO BID 90 days montelukast 10 mg PO DAILY omega-3 fatty acids 1,000 mg PO DAILY omeprazole 20 mg PO DAILY 90 days red yeast rice 1,200 mg PO DAILY semaglutide 0.25 mg (0.368 mL) subcut QWEEK 30 days tacrolimus 0.1% topical BID Tobacco use date assessed: 09/02/23 Dental Screening Dental Screen Date: 06/17/23 Did you have a dental visit in the last 12 months?: Yes Did you have a dental problem in the last 6 months where you did not have access to dental care?: No Was dental information given to patient?: Patient has dentist HPI Pre Op/Lung surgery 09/06/2023 HPI Details Patient is 62-year-old female came in today for preop clearance. Patient had CT scan done as lung cancer screening 07/05/2023 , which showed 2.5 x 2.4 cm ground-glass/part solid nodule in right upper lobe with sub pleural retraction, which was not present at her previous CT scan reports. Patient will be going in for biopsy on 09/06/[address] Singh EKG and labs are done at [facility]. I do not have the reports Patient is in her usual state of health, blood pressure is stable at 124 /72 , patient is on hydrochlorothiazide 50 mg and losartan 50 mg, tolerating medications Pulse 70 Oxygen saturation 98% at room air Breathing is at baseline patient is on Symbicort inhaler Moods are stable with Wellbutrin 150 mg Allergies are stable with montelukast, cetirizine and Flonase nasal spray Patient is also on omeprazole 20 mg for chronic GERD symptoms EKG was done in office March 2023 reviewed that was within normal limit Labs were normal limit at that time as well no anemia kidney functions are intact She is feeling very anxious as the date of procedure is approaching, tells me that she find herself hyperventilating She has a script for alprazolam that was provided to her last year when she had anxiety attacks She has not used and still have it. I would recommend to start using it she can use it up to 3 times a day 8 hours apart if needed She will stop semaglutide injection. PS: We were able to get her recent lab reports from [facility] There is no anemia, kidney function liver functions intact. EKG report is still not here yet. Based on EKG report from March which was normal patient is stable for the procedure [facility] Medical History Psoriasis (a type of skin inflammation) Depression, major, in remission Allergic asthma Environmental allergies Chronic GERD Hypertension, essential Surgical History History of back surgery Family History Father History of heart attack Mental health disorder Mother HTN (hypertension) Asthma Diabetes mellitus CHF (congestive heart failure) Maternal Grandmother Cancer Colon cancer Maternal Grandfather Cancer Paternal Aunt Mental health disorder Paternal Aunt Mental health disorder Paternal Aunt Mental health disorder Social History Housing: House Alcohol intake: current Alcohol intake frequency: a few times a week Alcohol type: wine and hard liquor Patient Tobacco Use Status: Former Tobacco user Cigarettes Per Day: 6 e-Cigarette/Vaping Use: Never Used Current occupational status: employed Cognitive needs: No Hearing needs: No Vision needs: No Questionnaire PHQ-9 Over the last 2 weeks, how often have you been bothered by any of the following problems? 1. Little interest or pleasure in doing things: not at all 2. Feeling down, depressed, or hopeless: not at all 3. Trouble falling or staying asleep, or sleeping too much: not at all 4. Feeling tired or having little energy: not at all 5. Poor appetite or overeating: not at all 6. Feeling bad about yourself - or that you are a failure or have let yourself or your family down: not at all 7. Trouble concentrating on things, such as reading the newspaper or watching television: not at all 8. Moving or speaking so slowly that other people could have noticed. Or the opposite - being so fidgety or restless that you have been moving around a lot more than usual: not at all 9. Thoughts that you would be better off or of hurting yourself in some way: not at all Total score: 0 Depression Screening Interpretation: Negative Depression Screening Done: Yes 90768 - PHQ-9 Billing: Yes Source: Developed by Drs. Trey Bush, Aurora Roger, Amrit Espinoza and colleagues, with an educational morales from [email or web address]. Thrive Questionnaire Date Thrive assessed: 09/02/23 I am a: Patient What is your living situation today?: I have a steady place to live Within the past 12 months, did the food you bought not last and you didn't have the money to get more?: Never true Within the past 12 months, did you worry whether your food would run out before you got money to buy more?: Never true Do you have trouble paying for medicines?: No Do you have trouble getting transportation to medical appointments?: No Do you have trouble paying your heating and electricity bill?: No Do you have trouble taking care of your child, family member or friend?: No Do you have trouble with day-to-day activities such as bathing, preparing meals, shopping, managing finances, etc.?: No Are you currently unemployed and looking for a job?: No Are you interested in more education?: No THRIVE Score: 0 AUDIT C Alcohol Use Questionnaire (AUDIT-C) 1. How often do you have a drink containing alcohol?: 2-3 times a week 2. How many drinks containing alcohol do you have on a typical day when you are drinking?: 1 or 2 3. How often do you have six or more drinks on one occasion?: Never Total Score: 3 FERNANDO-7 AMB Questionnaire FERNANDO-7 Date FERNANDO - 7 assessed: 09/02/23 Feeling nervous, anxious, or on edge: 1 = Several days Not being able to stop or control worryin = Several days Worrying too much about different things: 0 = Not at all Trouble relaxin = Several days Being so restless that it is hard to sit still: 1 = Several days Becoming easily annoyed or irritable: 0 = Not at all Feeling afraid as if something awful might happen: 0 = Not at all Total FERNANDO-7 score (0-4 normal; 5-9 mild; 10-14 moderate; 15-21 severe): 4 Source: Developed by Drs. Trey Bush, Aurora Roger, Amrit Espinoza and colleagues, with an educational morales from [email or web address]. Review of Systems Const Denies chills and Denies fever(s) ENT Denies epistaxis and Denies nasal discharge Card Denies chest pain Resp Denies chest congestion, Denies cough and Denies hemoptysis GI Denies diarrhea and Denies nausea Skin/Breast Denies rash Neuro Reports no additional complaints Psych Reports no additional complaints Endo Reports no additional complaints Physical exam (Primary Care) Vital Signs: Last Vital Signs Pulse 70 09/02/23 10:03 BP 124/72 09/02/23 10:03 Pulse Ox 98 09/02/23 10:03 Oxygen Delivery Method Room Air 09/02/23 10:03 BMI result Body Mass Index 33.8 Tobacco/Smoking Status: Tobacco use Status Tobacco use date assessed 09/02/23 09/02/23 10:05 Patient Tobacco Use Status Former Tobacco user 09/02/23 10:05 e-Cigarette/Vaping Use Never Used 09/02/23 10:03 PHQ-9: PHQ-9 Score PHQ-9: Total score 0 09/02/23 10:12 Depression Screening Interpretation: Negative Thrive Assessment: Date of Thrive Assessment Date Thrive assessed 09/02/23 09/02/23 10:09 Const General: cooperative, comfortable and no acute distress Orientation/consciousness: patient oriented x3 HENVT Head: Yes normocephalic Eyes General: appearance normal, both eyes and all related structures Neck Neck: Yes supple Resp Effort & Inspection: normal respiratory effort, no cough and no stridor Cardio Rhythm: regular rhythm Heart sounds: S1 normal heart sound present and S2 normal heart sound present Skin General skin exam: turgor normal Neuro General: patient oriented x3, tone normal and moves all extremities Extrem Right lower extremity: no edema Left lower extremity: no edema Assessment and Plan Assessment & Plan (1) Pre-op evaluation: Code(s): Z01.818 - Encounter for other preprocedural examination (2) Lesion of lung: Code(s): R91.1 - Solitary pulmonary nodule (3) Asthma, moderate persistent: Code(s): J45.40 - Moderate persistent asthma, uncomplicated Qualifiers: Asthma complication type: uncomplicated Qualified Code(s): J45.40 - Moderate persistent asthma, uncomplicated (4) Depression, major, in remission: Code(s): F32.5 - Major depressive disorder, single episode, in full remission (5) Environmental allergies: Code(s): Z91.09 - Other allergy status, other than to drugs and biological substances (6) Hypertension, essential: Code(s): I10 - Essential (primary) hypertension (7) Chronic GERD: Code(s): K21.9 - Gastro-esophageal reflux disease without esophagitis (8) Anxiety about health: Code(s): R45.89 - Other symptoms and signs involving emotional state Plan Patient is 62-year-old female came in today for preop clearance. Patient had CT scan done as lung cancer screening 07/05/2023 , which showed 2.5 x 2.4 cm ground-glass/part solid nodule in right upper lobe with sub pleural retraction, which was not present at her previous CT scan reports. Patient will be going in for biopsy on 09/06/[address] Singh EKG and labs are done at [facility]. I do not have the reports Patient is in her usual state of health, blood pressure is stable at 124 /72 , patient is on hydrochlorothiazide 50 mg and losartan 50 mg, tolerating medications Pulse 70 Oxygen saturation 98% at room air Breathing is at baseline patient is on Symbicort inhaler Moods are stable with Wellbutrin 150 mg Allergies are stable with montelukast, cetirizine and Flonase nasal spray Patient is also on omeprazole 20 mg for chronic GERD symptoms EKG was done in office March 2023 reviewed that was within normal limit Labs were normal limit at that time as well no anemia kidney functions are intact She is feeling very anxious as the date of procedure is approaching, tells me that she find herself hyperventilating She has a script for alprazolam that was provided to her last year when she had anxiety attacks She has not used and still have it. I would recommend to start using it she can use it up to 3 times a day 8 hours apart if needed She will stop semaglutide injection. PS: We were able to get her recent lab reports from [facility] There is no anemia, kidney function liver functions intact. EKG report is still not here yet. Based on EKG report from March which was normal patient is stable for the procedure Coding Level of Care Code Est Pt Level 4 (09547) Diagnoses Pre-op evaluation Z01.818 Lesion of lung R91.1 Moderate persistent asthma without complication J45.40 Asthma complication type: uncomplicated Depression, major, in remission F32.5 Environmental allergies Z91.09 Hypertension, essential I10 Chronic GERD K21.9 Anxiety about health R45.89
[2023-09-02 10:03] VITALS: BP 124/72; PULSE 70; O2SAT 98; BMI 33.8
== END 2023-09-02 13:44 | disposition home or self-care (01) ==
PROVIDERS: PCP Internal Medicine; Visit Provider Internal Medicine
DX: Z01.818 Encounter for other preprocedural examination (principal); R91.1 Solitary pulmonary nodule; J45.40 Moderate persistent asthma, uncomplicated; F32.5 Major depressive disorder, single episode, in full remission; Z91.09 Other allergy status, other than to drugs and biological substances; I10 Essential (primary) hypertension; K21.9 Gastro-esophageal reflux disease without esophagitis; R45.89 Other symptoms and signs involving emotional state
CPT/HCPCS: 99214

== ENCOUNTER 2023-09-14 10:55 | Outpatient (REF) | payer OTHER, SELFPAY ==
[2023-09-14 14:14] LABS: Cholesterol 213 mg/dL (<200); HDL Cholesterol 66 mg/dL (>40); LDL Cholesterol Calculated 128 mg/dL (<100); Triglycerides 97 mg/dL (<150)
[2023-09-15 11:23] LABS: LDL Cholesterol Direct 129 mg/dL (<100)
== END 2023-09-14 10:56 | disposition home or self-care (01) ==
LOC: HO.HMGCLDS 10:55
PROVIDERS: PCP Internal Medicine; Visit Provider Internal Medicine
DX: E66.09 Other obesity due to excess calories (principal); E78.9 Disorder of lipoprotein metabolism, unspecified; R73.01 Impaired fasting glucose; I10 Essential (primary) hypertension; K21.9 Gastro-esophageal reflux disease without esophagitis; Z91.09 Other allergy status, other than to drugs and biological substances; F32.5 Major depressive disorder, single episode, in full remission; L40.9 Psoriasis, unspecified; I83.12 Varicose veins of left lower extremity with inflammation; J45.40 Moderate persistent asthma, uncomplicated; R35.0 Frequency of micturition
CPT/HCPCS: 36415; 80061; 83721

== ENCOUNTER → 2023-09-29 08:56 | Outpatient (REF) | payer OTHER, SELFPAY ==
--- NOTE | ~2023-09-29 | NM_ITS ---
Lexiscan Myocardial perfusion study Indication: Abnormal EKG, preoperative evaluation Technique: The patient was brought in for a Lexiscan perfusion study on 09/29/2023 and was injected 0.4 mg of Lexiscan intravenously. Within a minute of this injection 30 mCi of sestamibi was given intravenously. Images were obtained using the SPECT gamma camera interlaced with the gating device. Images were obtained in supine position. Resting perfusion study was performed on 09/30/2023. Patient was administered 30 mCi of sestamibi intravenously at rest. Images were then obtained in supine position. Images were processed with the software and compared side to side in short axis, horizontal long axis and vertical long axis views. Total DLP 119mGy-cm. Findings: Raw acquisition reviewed. There is evidence of some diaphragmatic tracer uptake. The stress perfusion study showed mildly diminished tracer uptake along the anterior wall. There is improvement with CT attenuation correction suggestive of soft tissue attenuation artifact. The gated study shows normal LV systolic function with calculated LVEF of 63%. LV cavity is normal in size. The gated study shows normal wall thickening and contraction of segments. Resting study shows mildly diminished tracer uptake along the anterior wall. There is improvement with CT attenuation correction suggestive of soft tissue attenuation artifact. Gating at rest reveals normal wall motion with ejection fraction at 54%. The findings are consistent with fixed anterior defect, suspected to be from soft tissue attenuation artifact. NM/NM cardiolite stress test Impression: 1. Myocardial perfusion imaging study shows no clear evidence of any ischemia or infarction. Probably normal myocardial perfusion. 2. Gated LVEF is 63% during stress and 54% during rest. 3. Transient ischemic dilatation not present. EKG component of the test reported separately.
--- NOTE | 2023-09-29 08:59 | CA_ITS ---
Acquisition Time: 2023-09-29 09:14:35 Total Exercise Time: 00:06:46 Test Indications: Abnormal ECG Medications: SEE H Protocol: SERGEY Max HR: 127 BPM 81% of Pred: 156 BPM Max BP: 140/076 mmHG Max Work Load: 8.1 METS Exercise stress test exercise 6 min 46 sec of Sergey protocol achieving 80% MPHR and 8.1 METS with request to stop due to moderate SOB, without chest pains, without arrhythmias, with normotenisve resposne to exericse, without EKG hcnages at achieved workload. Once breathing returned to baseline test changed to pharmacoliogical stress test with Lexiscan. Pharmacological stress test with Lexiscan injection while sititng and kicking her legs, with mild SOB, 3-4/10 chest pressurewithout arrhythmias, with normotensive response to injection, with nondiagnoisitic EKGs, Aminophylline 75mg IVP given to reverse Lexiscan. Chest pressure and breathing returned to baseline. Nuclear images pending. Test reviewed with Dr. Hall. Referred By: Sonia Pulido Overread By: Frances Rice
== END ==
LOC: HO.CARD 08:56
PROVIDERS: Visit Provider Nurse Practitioner Family
DX: Z01.818 Encounter for other preprocedural examination (principal); R94.31 Abnormal electrocardiogram [ECG] [EKG]
CPT/HCPCS: 78452; 93017; A9500; J0280; J2785

== ENCOUNTER → 2023-09-29 08:59 | Outpatient (BNV) | payer OTHER, SELFPAY | PROVIDERS: Visit Provider Nurse Practitioner | DX: Z01.810 Encounter for preprocedural cardiovascular examination (principal) | CPT/HCPCS: 78452; 93016; 93018 ==

== ENCOUNTER 2024-01-02 10:56 | Outpatient (REF) | payer OTHER, SELFPAY ==
[2024-01-02 13:04] LABS: MANUAL DIFF FLAG NO
[2024-01-02 13:22] LABS: Basophils Absolute Auto 0.1 X10*3/uL (0.0-0.2); Basophils Percent Auto 1.2 % (0-2); Eosinophils Absolute Auto 0.4 X10*3/uL (0.0-0.4); Eosinophils Percent Auto 5.5 % (0-4); Hematocrit 38.6 % (37.0-47.0); Hemoglobin 12.7 g/dl (12.0-16.0); Imm Gran Abs Auto 0.03 X10*3/uL (0.00-0.03); Imm Gran Pct Auto 0.4 % (0.0-0.4); Lymphocytes Absolute Auto 1.5 X10*3/uL (1.2-4.9); Lymphocytes Percent Auto 22.4 % (20-40); Mean Corpuscular HGB Conc 32.9 g/dl (31.0-35.0); Mean Corpuscular Hemoglobin 29.8 pg (27.0-33.0); Mean Corpuscular Volume 90.6 fL (80.0-98.0); Mean Platelet Volume 9.7 fL (9.4-12.3); Monocytes Absolute Auto 0.5 X10*3/uL (0.1-1.2); Monocytes Percent Auto 7.6 % (2-11); Neutrophils Absolute Auto 4.2 x10*3/uL (2.0-8.3); Neutrophils Percent Auto 62.9 % (45-73); Platelet Count 301 X10*3/uL (160-400); Red Blood Count 4.26 X10*6/uL (4.20-5.50); Red Cell Distribution Width 13.6 % (11.0-16.0); White Blood Count 6.7 X10*3/uL (4.8-10.8)
[2024-01-02 13:56] LABS: Alanine Aminotransferase 23 U/L (0-31); Albumin Level 4.5 g/dL (3.5-5.0); Alkaline Phosphatase 119 U/L (39-117); Anion Gap 12 (12-20); Aspartate Amino Transferase 17 U/L (5-31); Bilirubin Total 0.6 mg/dL (0.0-1.0); Blood Urea Nitrogen 16 mg/dL (9-16); Calcium 10.4 mg/dL (8.4-10.2); Carbon Dioxide 29 mmol/L (22-29); Chloride 102 mmol/L (96-108); Cholesterol 207 mg/dL (<200); Estimated Glomerular Filt Rate > 60; Glucose Fasting 100 mg/dL (60-99); HDL Cholesterol 61 mg/dL (>40); LDL Cholesterol Calculated 126 mg/dL (<100); Magnesium 2.2 mg/dL (1.6-2.6); Potassium 3.9 mmol/L (3.3-5.1); Sodium 139 mmol/L (135-145); Total Protein 7.4 g/dL (6.5-8.0); Triglycerides 101 mg/dL (<150)
[2024-01-02 14:01] LABS: TSH reflex Free T4 1.06 uIU/mL (0.32-4.0)
[2024-01-02 14:29] LABS: Estimated Average Glucose 94 mg/dL; Hemoglobin A1c % 4.9 % (<6.0)
[2024-01-07 15:14] LABS: Vitamin D 25-OH, D2 <4 ng/mL; Vitamin D 25-OH, D3 41 ng/mL; Vitamin D 25-OH, Total 41 ng/mL (30-100)
== END 2024-01-02 10:57 | disposition home or self-care (01) ==
LOC: HO.HMGCLDS 10:56
PROVIDERS: PCP Internal Medicine; Visit Provider Internal Medicine
DX: I10 Essential (primary) hypertension (principal); K21.9 Gastro-esophageal reflux disease without esophagitis; Z91.09 Other allergy status, other than to drugs and biological substances; J45.40 Moderate persistent asthma, uncomplicated; F32.5 Major depressive disorder, single episode, in full remission; L40.9 Psoriasis, unspecified; R73.01 Impaired fasting glucose
CPT/HCPCS: 36415; 80053; 80061; 82306; 83036; 83735; 84443; 85025

== ENCOUNTER 2024-01-03 06:40 | Outpatient (REF) | payer OTHER, SELFPAY ==
[2024-01-03 13:16] LABS: Appearance Urine Clear; Color Urine Yellow; Glucose Urine UA Negative (Negative); Leukocyte Esterase Urine Negative (Negative); Nitrite Urine Negative (Negative); Specific Gravity - Urine <= 1.005 (1.005-1.025); Urine Blood Negative (Negative); Urine Ketones Negative (Negative); Urine Protein Negative (Neg-Trace)
== END 2024-01-03 06:41 | disposition home or self-care (01) ==
LOC: HO.HMGCLNP 06:40
PROVIDERS: PCP Internal Medicine; Visit Provider Internal Medicine
DX: I10 Essential (primary) hypertension (principal); K21.9 Gastro-esophageal reflux disease without esophagitis; Z91.09 Other allergy status, other than to drugs and biological substances; J45.40 Moderate persistent asthma, uncomplicated; F32.5 Major depressive disorder, single episode, in full remission; L40.9 Psoriasis, unspecified; R73.01 Impaired fasting glucose
CPT/HCPCS: 81003

== ENCOUNTER 2024-01-03 09:01 | Outpatient (AMB) | payer OTHER, SELFPAY ==
[2024-01-03 09:02] VITALS: BP 140/76; PULSE 81; O2SAT 97; BMI 33.9
--- NOTE | 2024-01-03 09:02 | A.OFFPC_ITS ---
Vital Signs 01/03/24 09:02 Height 5 ft 3 in Weight 191 lb 6 oz BMI 33.9 BP 140/76 H Blood Pressure Location Rt brachial Position Sitting Pulse 81 Pulse Source Pulse Oximeter Pulse Oximetry (%) 97 Oxygen Delivery Method Room Air Intake Visit Reasons: Annual PE Allergies Seasonal Allergies Allergy (Mild, Verified 01/03/24 09:02) Sneezing eggs Allergy (Mild, Uncoded 09/21/23 11:02) Unknown Medication List - Last Reconciled 01/03/24 by Annita Malloy MD albuterol sulfate 90 mcg/actuation 2 puffs inhalation Q6H PRN 30 days alprazolam 0.25 mg PO DAILY PRN 90 days budesonide-formoterol 160-4.5 mcg/actuation (Symbicort) 2 puffs PO BID bupropion HCl XL (Wellbutrin XL) 150 mg PO QAM 90 days cetirizine (Zyrtec) 10 mg PO DAILY coenzyme Q10 400 mg PO DAILY fluticasone propionate 50 mcg/actuation (Flonase Allergy Relief) 1 spray intranasal DAILY hydrochlorothiazide 50 mg PO DAILY losartan 50 mg PO BID 90 days montelukast 10 mg PO DAILY omega-3 fatty acids 1,000 mg PO DAILY omeprazole 20 mg PO DAILY 90 days red yeast rice 1,200 mg PO DAILY semaglutide 0.25 mg (0.368 mL) subcut QWEEK 30 days tacrolimus 0.1% topical BID Tobacco use date assessed: 01/03/24 Fall risk assessment: No Falls in past year Last assessed Fall Risk: 01/03/24 Dental Screening Dental Screen Date: 01/03/24 Did you have a dental visit in the last 12 months?: Yes Did you have a dental problem in the last 6 months where you did not have access to dental care?: No Was dental information given to patient?: Patient has dentist HPI Annual PE HPI Details Patient is 63-year-old female came in today for physical examination Mammogram appointment is coming up Colonoscopy was 4 years ago at [facility] [place] next 1 will be in 6 OBGYN at [facility] Patient is status post lumpectomy secondary to lung cancer, she said that no radiation or chemotherapy was needed Continue to use semaglutide injection as a weight loss medication Weight is stable Blood pressure is slightly elevated today as patient has not taken her medication yet Follow-up 4 months Physical exam 1 year PFSH Medical History Right bundle branch block Psoriasis (a type of skin inflammation) Depression, major, in remission Allergic asthma Environmental allergies Chronic GERD Hypertension, essential Surgical History History of back surgery Family History Father History of heart attack Mental health disorder Mother HTN (hypertension) Asthma Diabetes mellitus CHF (congestive heart failure) Maternal Grandmother Cancer Colon cancer Maternal Grandfather Cancer Paternal Aunt Mental health disorder Paternal Aunt Mental health disorder Paternal Aunt Mental health disorder Social History Housing: House Alcohol intake: current Alcohol intake frequency: a few times a week Alcohol type: wine and hard liquor Patient Tobacco Use Status: Former Tobacco user Cigarettes Per Day: 6 e-Cigarette/Vaping Use: Never Used service: No Current occupational status: employed Cognitive needs: No Hearing needs: No Vision needs: No Questionnaire PHQ-9 Over the last 2 weeks, how often have you been bothered by any of the following problems? 1. Little interest or pleasure in doing things: not at all 2. Feeling down, depressed, or hopeless: not at all 3. Trouble falling or staying asleep, or sleeping too much: not at all 4. Feeling tired or having little energy: not at all 5. Poor appetite or overeating: not at all 6. Feeling bad about yourself - or that you are a failure or have let yourself or your family down: not at all 7. Trouble concentrating on things, such as reading the newspaper or watching television: not at all 8. Moving or speaking so slowly that other people could have noticed. Or the opposite - being so fidgety or restless that you have been moving around a lot more than usual: not at all 9. Thoughts that you would be better off or of hurting yourself in some way: not at all Total score: 0 Depression Screening Interpretation: Negative Depression Screening Done: Yes 95438 - PHQ-9 Billing: Yes Source: Developed by [facility], Amrit Espinoza and colleagues, with an educational morales from [employer]. Thrive Questionnaire Date Thrive assessed: 01/03/24 I am a: Patient What is your living situation today?: I have a steady place to live Within the past 12 months, did the food you bought not last and you didn't have the money to get more?: Never true Within the past 12 months, did you worry whether your food would run out before you got money to buy more?: Never true Do you have trouble paying for medicines?: No Do you have trouble getting transportation to medical appointments?: No Do you have trouble paying your heating and electricity bill?: No Do you have trouble taking care of your child, family member or friend?: No Do you have trouble with day-to-day activities such as bathing, preparing meals, shopping, managing finances, etc.?: No Are you currently unemployed and looking for a job?: No Are you interested in more education?: No Please select the resources that you would like help with: Housing/Usp Currently or been in a relationship where the following occur: No concerns reported THRIVE Score: 0 AUDIT C Alcohol Use Questionnaire (AUDIT-C) 1. How often do you have a drink containing alcohol?: 2-3 times a week 2. How many drinks containing alcohol do you have on a typical day when you are drinking?: 1 or 2 3. How often do you have six or more drinks on one occasion?: Never Total Score: 3 Score Reviewed/Action Taken: Yes FERNANDO-7 AMB Questionnaire FERNANDO-7 Date FERNANDO - 7 assessed: 01/03/24 Feeling nervous, anxious, or on edge: 0 = Not at all Not being able to stop or control worryin = Not at all Worrying too much about different things: 0 = Not at all Trouble relaxin = Not at all Being so restless that it is hard to sit still: 0 = Not at all Becoming easily annoyed or irritable: 0 = Not at all Feeling afraid as if something awful might happen: 0 = Not at all Total FERNANDO-7 score (0-4 normal; 5-9 mild; 10-14 moderate; 15-21 severe): 0 Source: Developed by [facility] Kurt Kroenke and colleagues, with an educational morales from [employer]. FERNANDO-7 Assessment Billing FERNANDO-7 Assessment Tool: FERNANDO-7 Assessment [id number] Review of Systems Const Denies chills, Denies fever(s) and Denies headache(s) Eyes Denies blurry vision ENT Denies headache(s), Denies nasal discharge, Denies nasal obstruction, Denies odynophagia and Denies sinus pain Card Denies chest pain at rest and Denies chest pain with activity Resp Denies cough and Denies hemoptysis GI Denies diarrhea, Denies odynophagia, Denies vomiting and Denies hematemesis Reports as per HPI Musc Denies abnormal gait Skin/Breast Reports as per HPI Neuro Denies Neuro-related abnormal movements, Denies Abnormal speech present, Denies abnormal gait, Denies headache(s) and Denies Sensory deficit (Neuro) Psych Denies mood swings and Denies paranoia Endo Reports as per HPI Tyson/Lymph Reports as per HPI Aller/Immun Reports as per HPI Physical exam (Primary Care) Vital Signs: Last Vital Signs Pulse 81 01/03/24 09:02 BP 140/76 H 01/03/24 09:02 Pulse Ox 97 01/03/24 09:02 Oxygen Delivery Method Room Air 01/03/24 09:02 BMI result Body Mass Index 33.9 Tobacco/Smoking Status: Tobacco use Status Tobacco use date assessed 01/03/24 01/03/24 09:08 Patient Tobacco Use Status Former Tobacco user 01/03/24 09:08 e-Cigarette/Vaping Use Never Used 01/03/24 09:08 PHQ-9: PHQ-9 Score PHQ-9: Total score 0 01/03/24 09:59 Depression Screening Interpretation: Negative Thrive Assessment: Date of Thrive Assessment Date Thrive assessed 01/03/24 01/03/24 09:09 Currently or been in a relationship where the following occur: No concerns reported Const General: cooperative, comfortable and no acute distress Orientation/consciousness: patient oriented x3 HENMT Head: Yes normocephalic and Yes atraumatic Eyes General: appearance normal, both eyes and all related structures Pupils: Equal, round and reactive pupils present EOM: EOMs intact bilaterally Neck Neck: Yes supple and No lymphadenopathy Thyroid: Thyroid normal Lymphatic: no lymphadenopathy noted Resp Effort & Inspection: normal respiratory effort and able to speak in complete sentences Auscultation: clear to auscultation bilaterally Cardio Heart sounds: S1 normal heart sound present and S2 normal heart sound present GI Palpation (GI): Soft to palpation and nontender Auscultation: normal bowel sounds General: Yes no CVA tenderness Back/Spine/Pelvis Back: no CVA tenderness Skin General skin exam: elasticity normal and turgor normal Neuro General: patient oriented x3 and gait normal Cranial nerves: Yes Equal, round and reactive pupils present Speech: No Abnormal speech present Sensory Exam: No Sensory deficit (Neuro) Coordination: tandem gait normal and Romberg test negative Extrem General: Yes normal exam except as noted and No edema Assessment and Plan Assessment & Plan (1) Annual physical exam: Code(s): Z00.00 - Encounter for general adult medical examination without abnormal findings (2) Obesity due to excess calories: Code(s): E66.09 - Other obesity due to excess calories Qualifiers: Body mass index: BMI 35.0-35.9 Obesity classification: adult class 2 (BMI 35 - 39.9) Serious obesity comorbidity presence: with serious comorbidity Qualified Code(s): E66.01 - Morbid (severe) obesity due to excess calories; Z68.35 - Body mass index [BMI] 35.0-35.9, adult (3) Lipid disorder: Code(s): E78.9 - Disorder of lipoprotein metabolism, unspecified (4) Impaired fasting blood sugar: Code(s): R73.01 - Impaired fasting glucose (5) Asthma, moderate persistent: Code(s): J45.40 - Moderate persistent asthma, uncomplicated Qualifiers: Asthma complication type: uncomplicated Qualified Code(s): J45.40 - Moderate persistent asthma, uncomplicated (6) Psoriasis (a type of skin inflammation): Code(s): L40.9 - Psoriasis, unspecified (7) Hypertension, essential: Code(s): I10 - Essential (primary) hypertension (8) Chronic GERD: Code(s): K21.9 - Gastro-esophageal reflux disease without esophagitis (9) Environmental allergies: Code(s): Z91.09 - Other allergy status, other than to drugs and biological substances Plan Patient is 63-year-old female came in today for physical examination Mammogram appointment is coming up Colonoscopy was 4 years ago at [facility] [place] next 1 will be in 6 OBGYN at [facility] Patient is status post lumpectomy secondary to lung cancer, she said that no radiation or chemotherapy was needed Continue to use semaglutide injection as a weight loss medication Weight is stable Blood pressure is slightly elevated today as patient has not taken her medication yet Follow-up 4 months Physical exam 1 year Coding Level of Care Code Est Pt Prev Care >65y(23793) Diagnoses Annual physical exam Z00.00 Class 2 severe obesity due to excess calories with serious comorbidity and body mass index (BMI) of 35.0 to 35.9 in adult E66.01; Z68.35 Body mass index: BMI 35.0-35.9 Obesity classification: adult class 2 (BMI 35 - 39.9) Serious obesity comorbidity presence: with serious comorbidity Lipid disorder E78.9 Impaired fasting blood sugar R73.01 Moderate persistent asthma without complication J45.40 Asthma complication type: uncomplicated Psoriasis (a type of skin inflammation) L40.9 Hypertension, essential I10 Chronic GERD K21.9 Environmental allergies Z91.09 Additional Codes FERNANDO-7 Assessment Billing - FERNANDO-7 Assessment Tool: FERNANDO-7 Assessment [id number] ([id number])
== END 2024-01-03 11:00 | disposition home or self-care (01) ==
PROVIDERS: PCP Internal Medicine; Visit Provider Internal Medicine
DX: Z00.00 Encounter for general adult medical examination without abnormal findings (principal); E66.01 Morbid (severe) obesity due to excess calories; Z68.35 Body mass index [BMI] 35.0-35.9, adult; E78.9 Disorder of lipoprotein metabolism, unspecified; R73.01 Impaired fasting glucose; J45.40 Moderate persistent asthma, uncomplicated; L40.9 Psoriasis, unspecified; I10 Essential (primary) hypertension; K21.9 Gastro-esophageal reflux disease without esophagitis; Z91.09 Other allergy status, other than to drugs and biological substances
CPT/HCPCS: 99397

== ENCOUNTER 2024-05-08 14:47 | Outpatient (AMB) | payer OTHER, SELFPAY ==
[2024-05-08 14:52] VITALS: BP 142/80; PULSE 77; O2SAT 98; BMI 33.2
--- NOTE | 2024-05-08 14:52 | MHC.PC.OV ---
Vital Signs 05/08/24 14:52 Height 5 ft 3 in Weight 187 lb 6 oz BMI 33.2 BP 142/80 H Blood Pressure Location Rt brachial Position Sitting Pulse 77 Pulse Source Pulse Oximeter Pulse Oximetry (%) 98 Oxygen Delivery Method Room Air Intake Visit Reasons: 4m f/u Allergies Seasonal Allergies Allergy (Mild, Verified 05/08/24 14:52) Sneezing eggs Allergy (Mild, Uncoded 09/21/23 11:02) Unknown Medication List - Last Reconciled 05/08/24 by Annita Malloy MD albuterol sulfate 90 mcg/actuation 2 puffs inhalation Q6H PRN 30 days alprazolam 0.25 mg PO DAILY PRN 90 days budesonide-formoterol 160-4.5 mcg/actuation (Symbicort) 2 puffs PO BID bupropion HCl XL (Wellbutrin XL) 150 mg PO QAM 90 days cetirizine (Zyrtec) 10 mg PO DAILY coenzyme Q10 400 mg PO DAILY fluticasone propionate 50 mcg/actuation (Flonase Allergy Relief) 1 spray intranasal DAILY hydrochlorothiazide 50 mg PO DAILY losartan 50 mg PO BID 90 days montelukast 10 mg PO DAILY omega-3 fatty acids 1,000 mg PO DAILY omeprazole 20 mg PO DAILY 90 days red yeast rice 1,200 mg PO DAILY semaglutide 1 mg (0.75 mL) subcut QWEEK 30 days tacrolimus 0.1% topical BID Tobacco use date assessed: 05/08/24 Fall risk assessment: No Falls in past year Last assessed Fall Risk: 05/08/24 Dental Screening Dental Screen Date: 05/08/24 Did you have a dental visit in the last 12 months?: Yes Did you have a dental problem in the last 6 months where you did not have access to dental care?: No Was dental information given to patient?: Patient has dentist HPI 4m f/u HPI Details Chief Complaint The patient presents for a routine follow-up with concerns about asthma, hypertension management, and medication adjustments. Assessment and Plan This 63-year-old female with a history of psoriasis, lung cancer, and hypertension, allergies, asthma presents for a routine follow-up to discuss asthma management, weight issues, and medication adjustments. Weight management is ongoing, but the patient notes no significant weight loss. Her allergy medication were adjusted by geothermal heat pump machinist , she is taking cetirizine 10 mg 2 times a day now along with montelukast The patient's history of lung cancer is significant in her respiratory assessment, and her adherence to inhaler therapy was reinforced after experiencing exacerbations when attempting to wean off it. 1. Essential Hypertension Continue Losartan and Hydrochlorothiazide as current medications. Monitor blood pressure closely and consider time-of-day variations. Continue lifestyle modifications. 2. Obesity Monitor thyroid function due to semaglutide use. Ensure upcoming labs include thyroid function tests. Increase dose of semaglutide sent, she is now on 2 mg once a week 3. Asthma The patient should continue her prescribed inhaler therapy. Will monitor for any changes in symptoms and adjust therapy as necessary. 4. Psoriasis Although the primary focus today was not psoriasis, it remains a part of the patient's medical history. Continued monitoring and treatment with dermatologic care as needed. 6. History Of Lung Cancer Continue monitoring lung health. Reinforced the importance of using inhaler therapy consistently. Diagnostic results Problem List - Psoriasis - obesity - Hypertension - History of Lung Cancer - Asthma - Allergic Rhinitis Health Maintenance - Discussed importance of weight monitoring and management. - Reinforced regular follow-up appointments to reassess hypertension and asthma control. 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 - Continue using inhaler therapy regularly for asthma management. - Follow the increased dosages of allergy medications as per geothermal heat pump machinist's instructions. - Complete the recommended lab tests, including thyroid function, as soon as possible. - Return for follow-up consultation in three months to review results and management plans. - Emphasized the importance of adhering to medication regimens, especially during the holiday season. Labs to be done today Follow-up 3 months [facility] Medical History Right bundle branch block Psoriasis (a type of skin inflammation) Depression, major, in remission Allergic asthma Environmental allergies Chronic GERD Hypertension, essential Surgical History History of back surgery Family History Father History of heart attack Mental health disorder Mother HTN (hypertension) Asthma Diabetes mellitus CHF (congestive heart failure) Maternal Grandmother Cancer Colon cancer Maternal Grandfather Cancer Paternal Aunt Mental health disorder Paternal Aunt Mental health disorder Paternal Aunt Mental health disorder Social History Housing: House Alcohol intake: current Alcohol intake frequency: a few times a week Alcohol type: wine and hard liquor Patient Tobacco Use Status: Former Tobacco user Cigarettes Per Day: 6 e-Cigarette/Vaping Use: Never Used service: No Current occupational status: employed Cognitive needs: No Hearing needs: No Vision needs: No Questionnaire PHQ-9 Over the last 2 weeks, how often have you been bothered by any of the following problems? 5. Poor appetite or overeating: several days Source: Developed by Drs. Trey Bush, Aurora Roger, Amrit Espinoza and colleagues, with an educational morales from [employer]. Thrive Questionnaire Date Thrive assessed: 05/08/24 I am a: Patient What is your living situation today?: I have a steady place to live Within the past 12 months, did the food you bought not last and you didn't have the money to get more?: Never true Within the past 12 months, did you worry whether your food would run out before you got money to buy more?: Never true Do you have trouble paying for medicines?: No Do you have trouble getting transportation to medical appointments?: No Do you have trouble paying your heating and electricity bill?: No Do you have trouble taking care of your child, family member or friend?: No Do you have trouble with day-to-day activities such as bathing, preparing meals, shopping, managing finances, etc.?: No Are you currently unemployed and looking for a job?: No Are you interested in more education?: No Currently or been in a relationship where the following occur: No concerns reported THRIVE Score: 0 AUDIT C Alcohol Use Questionnaire (AUDIT-C) 1. How often do you have a drink containing alcohol?: 2-3 times a week 2. How many drinks containing alcohol do you have on a typical day when you are drinking?: 1 or 2 3. How often do you have six or more drinks on one occasion?: Never Total Score: 3 Score Reviewed/Action Taken: Yes FERNANDO-7 AMB Questionnaire FERNANDO-7 Date FERNANDO - 7 assessed: 01/03/24 Source: Developed by Drs. Trey Bush, Aurora Roger, Amrit Espinoza and colleagues, with an educational morales from [employer]. Review of Systems Const Denies chills and Denies fever(s) ENT Denies epistaxis and Denies nasal discharge Card Denies chest pain Resp Denies chest congestion, Denies cough and Denies hemoptysis GI Denies diarrhea and Denies nausea Neuro Reports no additional complaints Psych Reports no additional complaints Endo Reports no additional complaints Physical exam (Primary Care) Vital Signs: Last Vital Signs Pulse 77 05/08/24 14:52 BP 142/80 H 05/08/24 14:52 Pulse Ox 98 05/08/24 14:52 Oxygen Delivery Method Room Air 05/08/24 14:52 BMI result Body Mass Index 33.2 Tobacco/Smoking Status: Tobacco use Status Tobacco use date assessed 05/08/24 05/08/24 14:53 Patient Tobacco Use Status Former Tobacco user 05/08/24 14:53 e-Cigarette/Vaping Use Never Used 05/08/24 14:53 Thrive Assessment: Date of Thrive Assessment Date Thrive assessed 05/08/24 05/08/24 14:57 Currently or been in a relationship where the following occur: No concerns reported Const General: cooperative, comfortable and no acute distress Orientation/consciousness: patient oriented x3 HENMT Head: Yes normocephalic Eyes General: appearance normal, both eyes and all related structures Neck Neck: Yes supple Resp Effort & Inspection: normal respiratory effort, no cough and no stridor Cardio Rhythm: regular rhythm Heart sounds: S1 normal heart sound present and S2 normal heart sound present Skin General skin exam: turgor normal Neuro General: patient oriented x3, tone normal and moves all extremities Extrem Right lower extremity: no edema Left lower extremity: no edema Coding Level of Care Code Est Pt Level 4 (79002) Diagnoses Hypertension, essential I10 Chronic GERD K21.9 Environmental allergies Z91.09 Moderate persistent extrinsic asthma without complication J45.40 Asthma complication type: uncomplicated Asthma persistence: persistent Asthma severity: moderate Depression, major, in remission F32.5 Psoriasis (a type of skin inflammation) L40.9 Moderate persistent asthma without complication J45.40 Asthma complication type: uncomplicated Impaired fasting blood sugar R73.01 Lipid disorder E78.9 Class 2 severe obesity due to excess calories with serious comorbidity and body mass index (BMI) of 35.0 to 35.9 in adult E66.01; Z68.35 Body mass index: BMI 35.0-35.9 Obesity classification: adult class 2 (BMI 35 - 39.9) Serious obesity comorbidity presence: with serious comorbidity Assessment & Plan Assessment & Plan (1) Hypertension, essential: Code(s): I10 - Essential (primary) hypertension Category: Medical (2) Chronic GERD: Code(s): K21.9 - Gastro-esophageal reflux disease without esophagitis Category: Medical (3) Environmental allergies: Code(s): Z91.09 - Other allergy status, other than to drugs and biological substances Category: Medical (4) Allergic asthma: Code(s): J45.909 - Unspecified asthma, uncomplicated Category: Medical Qualifiers: Asthma complication type: uncomplicated Asthma persistence: persistent Asthma severity: moderate Qualified Code(s): J45.40 - Moderate persistent asthma, uncomplicated (5) Depression, major, in remission: Code(s): F32.5 - Major depressive disorder, single episode, in full remission Category: Medical (6) Psoriasis (a type of skin inflammation): Code(s): L40.9 - Psoriasis, unspecified Category: Medical (7) Asthma, moderate persistent: Code(s): J45.40 - Moderate persistent asthma, uncomplicated Category: Medical Qualifiers: Asthma complication type: uncomplicated Qualified Code(s): J45.40 - Moderate persistent asthma, uncomplicated (8) Impaired fasting blood sugar: Code(s): R73.01 - Impaired fasting glucose Category: Medical (9) Lipid disorder: Code(s): E78.9 - Disorder of lipoprotein metabolism, unspecified Category: Medical (10) Obesity due to excess calories: Code(s): E66.09 - Other obesity due to excess calories Category: Medical Qualifiers: Body mass index: BMI 35.0-35.9 Obesity classification: adult class 2 (BMI 35 - 39.9) Serious obesity comorbidity presence: with serious comorbidity Qualified Code(s): E66.01 - Morbid (severe) obesity due to excess calories; Z68.35 - Body mass index [BMI] 35.0-35.9, adult Plan Chief Complaint The patient presents for a routine follow-up with concerns about asthma, hypertension management, and medication adjustments. Assessment and Plan This 63-year-old female with a history of psoriasis, lung cancer, and hypertension, allergies, depression, GERD, asthma presents for a routine follow-up to discuss asthma management, weight issues, and medication adjustments. Weight management is ongoing, but the patient notes no significant weight loss. Her allergy medication were adjusted by geothermal heat pump machinist , she is taking cetirizine 10 mg 2 times a day now along with montelukast The patient's history of lung cancer is significant in her respiratory assessment, and her adherence to inhaler therapy was reinforced after experiencing exacerbations when attempting to wean off it. 1. Essential Hypertension Continue Losartan and Hydrochlorothiazide as current medications. Monitor blood pressure closely and consider time-of-day variations. Continue lifestyle modifications. 2. Obesity Monitor thyroid function due to semaglutide use. Ensure upcoming labs include thyroid function tests. Increase dose of semaglutide sent, she is now on 2 mg once a week 3. Asthma The patient should continue her prescribed inhaler therapy. Will monitor for any changes in symptoms and adjust therapy as necessary. 4. Psoriasis Although the primary focus today was not psoriasis, it remains a part of the patient's medical history. Continued monitoring and treatment with dermatologic care as needed. 6. History Of Lung Cancer Continue monitoring lung health. Reinforced the importance of using inhaler therapy consistently. 7. depression stable continue medications Diagnostic results Problem List - Psoriasis - obesity - Hypertension - History of Lung Cancer - Asthma - Allergic Rhinitis - depression - impaired fasting sugar Health Maintenance - Discussed importance of weight monitoring and management. - Reinforced regular follow-up appointments to reassess hypertension and asthma control. 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 - Continue using inhaler therapy regularly for asthma management. - Follow the increased dosages of allergy medications as per geothermal heat pump machinist's instructions. - Complete the recommended lab tests, including thyroid function, as soon as possible. - Return for follow-up consultation in three months to review results and management plans. - Emphasized the importance of adhering to medication regimens, especially during the holiday season. Labs to be done today Follow-up 3 months Orders: Orders Complete Blood Count Auto Diff Today E66.01 - Morbid (severe) obesity due to excess calories, E78.9 - Disorder of lipoprotein metabolism, unspecified, F32.5 - Major depressive disorder, single episode, in full remission, I10 - Essential (primary) hypertension, J45.40 - Moderate persistent asthma, uncomplicated, K21.9 - Gastro-esophageal reflux disease without esophagitis, L40.9 - Psoriasis, unspecified, R73.01 - Impaired fasting glucose, Z68.35 - Body mass index [BMI] 35.0-35.9, adult, Z91.09 - Other allergy status, other than to drugs and biological substances Comprehensive Met. Panel Today E66.01 - Morbid (severe) obesity due to excess calories, E78.9 - Disorder of lipoprotein metabolism, unspecified, F32.5 - Major depressive disorder, single episode, in full remission, I10 - Essential (primary) hypertension, J45.40 - Moderate persistent asthma, uncomplicated, K21.9 - Gastro-esophageal reflux disease without esophagitis, L40.9 - Psoriasis, unspecified, R73.01 - Impaired fasting glucose, Z68.35 - Body mass index [BMI] 35.0-35.9, adult, Z91.09 - Other allergy status, other than to drugs and biological substances Lipase Today E66.01 - Morbid (severe) obesity due to excess calories, E78.9 - Disorder of lipoprotein metabolism, unspecified, F32.5 - Major depressive disorder, single episode, in full remission, I10 - Essential (primary) hypertension, J45.40 - Moderate persistent asthma, uncomplicated, K21.9 - Gastro-esophageal reflux disease without esophagitis, L40.9 - Psoriasis, unspecified, R73.01 - Impaired fasting glucose, Z68.35 - Body mass index [BMI] 35.0-35.9, adult, Z91.09 - Other allergy status, other than to drugs and biological substances TSH reflex Free T4 Today E66.01 - Morbid (severe) obesity due to excess calories, E78.9 - Disorder of lipoprotein metabolism, unspecified, F32.5 - Major depressive disorder, single episode, in full remission, I10 - Essential (primary) hypertension, J45.40 - Moderate persistent asthma, uncomplicated, K21.9 - Gastro-esophageal reflux disease without esophagitis, L40.9 - Psoriasis, unspecified, R73.01 - Impaired fasting glucose, Z68.35 - Body mass index [BMI] 35.0-35.9, adult, Z91.09 - Other allergy status, other than to drugs and biological substances LDL Cholesterol Direct Today E66.01 - Morbid (severe) obesity due to excess calories, E78.9 - Disorder of lipoprotein metabolism, unspecified, F32.5 - Major depressive disorder, single episode, in full remission, I10 - Essential (primary) hypertension, J45.40 - Moderate persistent asthma, uncomplicated, K21.9 - Gastro-esophageal reflux disease without esophagitis, L40.9 - Psoriasis, unspecified, R73.01 - Impaired fasting glucose, Z68.35 - Body mass index [BMI] 35.0-35.9, adult, Z91.09 - Other allergy status, other than to drugs and biological substances Amylase Today E66.01 - Morbid (severe) obesity due to excess calories, E78.9 - Disorder of lipoprotein metabolism, unspecified, F32.5 - Major depressive disorder, single episode, in full remission, I10 - Essential (primary) hypertension, J45.40 - Moderate persistent asthma, uncomplicated, K21.9 - Gastro-esophageal reflux disease without esophagitis, L40.9 - Psoriasis, unspecified, R73.01 - Impaired fasting glucose, Z68.35 - Body mass index [BMI] 35.0-35.9, adult, Z91.09 - Other allergy status, other than to drugs and biological substances Hemoglobin A1c Today E66.01 - Morbid (severe) obesity due to excess calories, E78.9 - Disorder of lipoprotein metabolism, unspecified, F32.5 - Major depressive disorder, single episode, in full remission, I10 - Essential (primary) hypertension, J45.40 - Moderate persistent asthma, uncomplicated, K21.9 - Gastro-esophageal reflux disease without esophagitis, L40.9 - Psoriasis, unspecified, R73.01 - Impaired fasting glucose, Z68.35 - Body mass index [BMI] 35.0-35.9, adult, Z91.09 - Other allergy status, other than to drugs and biological substances Medications: Changed From semaglutide for 4 weeks 1 mg (0.75 mL) subcut QWEEK 30 days 3.75 mL 2RF To semaglutide for 4 weeks 2 mg (0.75 mL) subcut QWEEK 3.75 mL 2RF 30 days
== END 2024-05-08 15:37 | disposition home or self-care (01) ==
PROVIDERS: PCP Internal Medicine; Visit Provider Internal Medicine
DX: I10 Essential (primary) hypertension (principal); F32.5 Major depressive disorder, single episode, in full remission; Z68.35 Body mass index [BMI] 35.0-35.9, adult; E66.01 Morbid (severe) obesity due to excess calories; K21.9 Gastro-esophageal reflux disease without esophagitis; Z91.09 Other allergy status, other than to drugs and biological substances; J45.40 Moderate persistent asthma, uncomplicated; L40.9 Psoriasis, unspecified; R73.01 Impaired fasting glucose; E78.9 Disorder of lipoprotein metabolism, unspecified

== ENCOUNTER 2024-06-14 12:52 | Outpatient (AMB) | payer OTHER, SELFPAY ==
[2024-06-14 12:56] VITALS: BP 122/70; PULSE 78; BMI 32.9
--- NOTE | 2024-06-14 12:56 | MHC.OFFVIS ---
Vital Signs 06/14/24 12:56 Height 5 ft 3 in Weight 185 lb 10.067 oz BMI 32.9 BP 122/70 Blood Pressure Location Lt brachial Position Sitting Pulse 78 Pulse Source Monitor Intake Visit Reasons: 1 yr f/up Health Unit Coordinator Required: No Allergies Seasonal Allergies Allergy (Mild, Verified 06/14/24 12:59) Sneezing eggs Allergy (Mild, Uncoded 06/14/24 12:59) Unknown erithomycin Allergy (Mild, Uncoded 06/14/24 13:00) Diarrhea Medication List - Last Reconciled 06/14/24 by Sonia Pulido, DIRECTOR OF GRADUATE ADMISSIONS-C albuterol sulfate 90 mcg/actuation 2 puffs inhalation Q6H PRN 30 days budesonide-formoterol 160-4.5 mcg/actuation (Symbicort) 2 puffs PO BID bupropion HCl XL (Wellbutrin XL) 150 mg PO QAM 90 days cetirizine (Zyrtec) 10 mg PO DAILY fluticasone propionate 50 mcg/actuation (Flonase Allergy Relief) 1 spray intranasal DAILY hydrochlorothiazide 50 mg PO DAILY losartan 50 mg PO BID 90 days montelukast 10 mg PO DAILY omeprazole 20 mg PO DAILY 90 days semaglutide 2 mg (0.75 mL) subcut QWEEK 30 days tacrolimus 0.1% topical BID HPI HPI 1 yr f/up: Details: Shannan is a 63-year-old female past medical history of hypertension, hyperlipidemia, obesity, right bundle branch block who presents for follow-up. Her last prior visit was 06/13/2023. On 10/03/2023 she underwent a right upper lobe lobectomy and mediastinal lymphadenectomy for stage IA cancer. Today she reports that she has been feeling very well with no concerning symptoms. She says her breathing is normal. No PND, orthopnea or edema. No chest discomfort at rest or with activity. No heart palpitations, lightheadedness, presyncope, syncope. She walks routinely for exercise. She states that when she had her surgery she was told she had a 1st AV block. She has been taking her meds as directed. [facility] Medical History Right bundle branch block Psoriasis (a type of skin inflammation) Depression, major, in remission Allergic asthma Environmental allergies Chronic GERD Hypertension, essential Surgical History S/P lobectomy of lung History of back surgery Family History Father History of heart attack Mental health disorder Mother HTN (hypertension) Asthma Diabetes mellitus CHF (congestive heart failure) Maternal Grandmother Cancer Colon cancer Maternal Grandfather Cancer Paternal Aunt Mental health disorder Paternal Aunt Mental health disorder Paternal Aunt Mental health disorder Social History Housing: House Alcohol intake: current Alcohol intake frequency: a few times a week Alcohol type: wine and hard liquor Patient Tobacco Use Status: Former Tobacco user Cigarettes Per Day: 6 e-Cigarette/Vaping Use: Never Used service: No Current occupational status: employed Cognitive needs: No Hearing needs: No Vision needs: No Review of Systems Const All systems reviewed & are unremarkable except as noted in HPI and below ENT Denies dizziness Card Denies chest pain, Denies chest pain at rest, Denies chest pain with activity, Denies rapid heart rate, Denies pedal edema, Denies edema, Denies leg edema, Denies lightheadedness, Denies palpitations, Denies dyspnea, Denies dyspnea on exertion and Denies orthopnea Resp Denies cough, Denies dyspnea and Denies dyspnea on exertion GI Denies hematochezia and Denies change in stool character Musc Denies abnormal gait, Denies limited range of motion, Denies muscle cramps, Denies muscle weakness, Denies numbness, Denies radiating pain into limb, Denies stiffness and Denies tingling Neuro Denies abnormal gait, Denies dizziness, Denies numbness and Denies tingling Endo Denies palpitations Physical Exam Vital Signs: Last Vital Signs Pulse 78 06/14/24 12:56 BP 122/70 06/14/24 12:56 BMI result Body Mass Index 32.9 Const General: cooperative, healthy appearing, comfortable and no acute distress Orientation/consciousness: patient oriented x3 Neck Neck: Yes normal visual inspection and Yes no JVD Resp Effort & Inspection: normal respiratory effort Auscultation: clear to auscultation bilaterally, no crackles, no rales, no rhonchi and no wheezes Cardio Jugular venous distension: no JVD Rate: regular rate Rhythm: regular rhythm Heart sounds: S1 normal heart sound present, S2 normal heart sound present, no murmurs and no rubs Neuro General: patient oriented x3 Extrem General: Yes normal to inspection, No no pedal edema and No calf tenderness Psych Appearance: grossly normal Mental Status: mental status grossly normal Speech and movement: Normal speech and movement present Office Procedures EKG Details: Today, read by me, normal sinus rhythm, left axis deviation, right bundle branch block, rate 78, QTC 458 milliseconds [id number], Complete Assessment & Plan Assessment & Plan (1) Palpitations: Code(s): R00.2 - Palpitations Category: Medical Plan: Prior reports of heart palpitations which feel like a strong punch to her chest and can occur on and off for for minutes and hours. No associated symptoms of lightheadedness or shortness of breath. No history of presyncope, syncope. ER evaluation on 04/04/2023 for this symptom. ER notes indicate occasional PVCs. Lab work reviewed with no significant abnormalities, no anemia, TSH 1.01, potassium 3.6. Holter monitor done on 05/16/2023 for 7 days shows sinus rhythm with average heart rate 79, rare SVE and VE. Echocardiogram done 05/16/2023 shows EF 60-65%, no valve abnormalities and no regional wall motion abnormality. Test results previously reviewed with her. At this time she is reporting in less palpitations. She she will notice more when she is under stress, at work. She notices last when she is on not at work, vacation and when she is doing physical activity. She tried taking metoprolol and did not notice a difference. She stopped drinking wine May 30 she feels may have helped. She is going to restart the metoprolol to see if it now makes her palpitations even less. They still feel the same like a strong be in her chest. Reviewed the reduction/avoidance in caffeinated beverage. Stay well hydrated and get adequate rest. Stress reduction as able. She says she has a few more years before [facility]. Reviewed that she is likely feeling PVCs, extrasystoles. These are benign in the setting of normal EF. Offered reassurance. Her cardiology follow-up can be p.r.n.. Instructed to notify this office if her palpitations change or she develops new symptoms of chest discomfort or shortness of breath. (2) Right bundle branch block: Code(s): I45.10 - Unspecified right bundle-branch block Category: Medical Plan: Finding of right bundle branch block on prior EKG. EKG done today is still showing sinus rhythm with right bundle branch block, rate 78. She has a borderline first-degree AV block as well. Prior Echocardiogram showing normal EF and no regional wall motion abnormalities. A nuclear stress test was done prior to her recent surgery. Stress test 09/30/2023 showed normal myocardial perfusion imaging. She has no anginal symptoms. (3) Hypertension, essential: Code(s): I10 - Essential (primary) hypertension Category: Medical Plan: Normal at this time. No med changes made. Plan Time spent on chart review, documentation, interview assess Coding Level of Care Code Est Pt Level 4 (86254) Complex EM visit Add On G2211 Diagnoses Palpitations R00.2 Right bundle branch block I45.10 Hypertension, essential I10 CPT Codes EKG - CPT: [id number], Complete ([id number]) Time Spent (min) 28
== END 2024-06-14 13:26 | disposition home or self-care (01) ==
PROVIDERS: PCP Internal Medicine; Visit Provider Nurse Practitioner Family
DX: R00.2 Palpitations (principal); I45.10 Unspecified right bundle-branch block; I10 Essential (primary) hypertension
CPT/HCPCS: 93010; 99214

== ENCOUNTER → 2024-06-14 12:52 | Outpatient (BNVA) | payer OTHER, SELFPAY | PROVIDERS: PCP Internal Medicine; Visit Provider Nurse Practitioner Family | DX: I49.3 Ventricular premature depolarization (principal); I10 Essential (primary) hypertension; I45.10 Unspecified right bundle-branch block | CPT/HCPCS: 93005 ==

== ENCOUNTER 2024-08-07 12:57 | Outpatient (AMB) | payer OTHER, SELFPAY ==
[2024-08-07 12:58] VITALS: BP 134/76; PULSE 82; RESP 18; O2SAT 98; BMI 33.0
--- NOTE | 2024-08-07 12:58 | A.OFFPC_ITS ---
Vital Signs 08/07/24 12:58 Height 5 ft 3 in Weight 186 lb 6 oz BMI 33.0 BP 134/76 Blood Pressure Location Rt brachial Position Sitting Respiration 18 Pulse 82 Pulse Source Pulse Oximeter Pulse Oximetry (%) 98 Oxygen Delivery Method Room Air Intake Visit Reasons: 3 months f/up Allergies Seasonal Allergies Allergy (Mild, Verified 08/07/24 12:59) Sneezing eggs Allergy (Mild, Uncoded 06/14/24 12:59) Unknown erithomycin Allergy (Mild, Uncoded 06/14/24 13:00) Diarrhea Medication List - Last Reconciled 08/07/24 by Annita Malloy MD albuterol sulfate 90 mcg/actuation 2 puffs inhalation Q6H PRN 30 days budesonide-formoterol 160-4.5 mcg/actuation (Symbicort) 2 puffs PO BID bupropion HCl XL (Wellbutrin XL) 150 mg PO QAM 90 days cetirizine (Zyrtec) 10 mg PO DAILY fluticasone propionate 50 mcg/actuation (Flonase Allergy Relief) 1 spray intranasal DAILY hydrochlorothiazide 50 mg PO DAILY losartan 50 mg PO BID 90 days montelukast 10 mg PO DAILY omeprazole 20 mg PO DAILY 90 days semaglutide 2 mg (0.75 mL) subcut QWEEK 30 days tacrolimus 0.1% topical BID Tobacco use date assessed: 08/07/24 Fall risk assessment: No Falls in past year Last assessed Fall Risk: 08/07/24 Dental Screening Dental Screen Date: 08/07/24 HPI 3 months f/up HPI Details - The patient is a 63 year old female pr esenting with weight management and emotional instability. Also due for regular follow-up - Weight management includes recent fluc tuations, without any significant weight gain during the holidays compared to prior years, with current weight at 186 pounds. Contributing factors include lack of exercise. - Emotional sensitivity has been longsta nding but has worsened, resulting in uncontrolled crying episodes. She is currently on Wellbutrin, . - History of dermatitis, particularly on the legs, with upcoming plans for patch testing. Through Dermatology - Asthma is reported as stable under cur rent management. - Allergic rhinitis is managed with [place] elukast and cetirizine, though allergies are increasing. - blood pressure is stable patient is [facility] hydrochlorothiazide 50 mg and losartan 50 mg b.i.d. - GERD is stable with omeprazole - continue semaglutide 2 mg for weight l oss, we will review the weight with next appointment and then decide whether to stop or continue Her BMI is 33.0 Problem List - Weight Management Issues - Emotional Instability - Dermatitis - Asthma - Allergic Rhinitis - hypertension - GERD Patient Instructions - Continue with current medications for asthma and allergic rhinitis. - Commence Escitalopram at 10 mg, starti ng with half a tablet for a week before increasing to a full tablet, and monitor for adverse effects. - Engage in regular physical activity, s uch as walking, especially as weather permits. - Schedule a follow-up appointment in to assess weight management progress. - Conduct labs before the next visit. - Plan for a dermatology consultation fo r patch testing for dermatitis. - Discuss potential therapy options for emotional sensitivity with a qualified therapist. Patient has met with our behavior health coordinator so we can assist her Review of Systems - General: No fever no chills - Neurological: No headaches no dizziness - Ear nose throat: No sore throat no hearing difficulty no ear pain - Cardiovascular: No syncope, no chest pain, no palpitations - Gastrointestinal: No nausea vomiting or diarrhea - Endocrine: No polyuria polydipsia no heat intolerance - Genitourinary: No dysuria , no blood in urine Physical Exam General: No acute distress HEENT: No acute findings Neck: Supple Respiratory system: Able to talk in full sentences, no audible wheeze cardiovascular: S1-S2 regular in rate and rhythm Gastrointestinal: No pain Extremities: Swollen with rashes on both legs 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: Alert awake oriented x3 motor sensory intact Skin: Rashes present on legs, normal turgor [facility] Medical History Right bundle branch block Psoriasis (a type of skin inflammation) Depression, major, in remission Allergic asthma Environmental allergies Chronic GERD Hypertension, essential Surgical History S/P lobectomy of lung History of back surgery Family History Father History of heart attack Mental health disorder Mother HTN (hypertension) Asthma Diabetes mellitus CHF (congestive heart failure) Maternal Grandmother Cancer Colon cancer Maternal Grandfather Cancer Paternal Aunt Mental health disorder Paternal Aunt Mental health disorder Paternal Aunt Mental health disorder Social History Housing: House Alcohol intake: current Alcohol intake frequency: a few times a week Alcohol type: wine and hard liquor Patient Tobacco Use Status: Former Tobacco user Cigarettes Per Day: 6 e-Cigarette/Vaping Use: Never Used service: No Current occupational status: employed Cognitive needs: No Hearing needs: No Vision needs: No Questionnaire PHQ-9 Over the last 2 weeks, how often have you been bothered by any of the following problems? 1. Little interest or pleasure in doing things: not at all 2. Feeling down, depressed, or hopeless: not at all 3. Trouble falling or staying asleep, or sleeping too much: not at all 4. Feeling tired or having little energy: not at all 5. Poor appetite or overeating: not at all 6. Feeling bad about yourself - or that you are a failure or have let yourself or your family down: not at all 7. Trouble concentrating on things, such as reading the newspaper or watching television: not at all 8. Moving or speaking so slowly that other people could have noticed. Or the opposite - being so fidgety or restless that you have been moving around a lot more than usual: not at all 9. Thoughts that you would be better off or of hurting yourself in some way: not at all Total score: 0 Depression Screening Interpretation: Negative Depression Screening Done: Yes 15282 - PHQ-9 Billing: Yes Source: Developed by Drs. Trey Bush, Aurora Roger, Amrit Espinoza and colleagues, with an educational morales from [employer]. Thrive Questionnaire Date Thrive assessed: 07/31/24 I am a: Patient What is your living situation today?: I have a steady place to live Within the past 12 months, did the food you bought not last and you didn't have the money to get more?: Never true Within the past 12 months, did you worry whether your food would run out before you got money to buy more?: Never true Do you have trouble paying for medicines?: No Do you have trouble getting transportation to medical appointments?: No Do you have trouble paying your heating and electricity bill?: No Do you have trouble taking care of your child, family member or friend?: No Do you have trouble with day-to-day activities such as bathing, preparing meals, shopping, managing finances, etc.?: No Are you currently unemployed and looking for a job?: No Are you interested in more education?: No Please select the resources that you would like help with: None Currently or been in a relationship where the following occur: No concerns reported THRIVE Score: 0 AUDIT C Alcohol Use Questionnaire (AUDIT-C) 1. How often do you have a drink containing alcohol?: 2-3 times a week 2. How many drinks containing alcohol do you have on a typical day when you are drinking?: 1 or 2 3. How often do you have six or more drinks on one occasion?: Never Total Score: 3 FERNANDO-7 AMB Questionnaire FERNANDO-7 Date FERNANDO - 7 assessed: 01/03/24 Feeling nervous, anxious, or on edge: 1 = Several days Not being able to stop or control worryin = Several days Worrying too much about different things: 1 = Several days Trouble relaxin = Not at all Being so restless that it is hard to sit still: 0 = Not at all Becoming easily annoyed or irritable: 0 = Not at all Feeling afraid as if something awful might happen: 0 = Not at all Total FERNANDO-7 score (0-4 normal; 5-9 mild; 10-14 moderate; 15-21 severe): 3 Source: Developed by Drs. Trey Bush, Aurora Roger, Amrit Espinoza and colleagues, with an educational morales from [employer]. Physical exam (Primary Care) Vital Signs: Last Vital Signs Pulse 82 08/07/24 12:58 Resp 18 08/07/24 12:58 BP 134/76 08/07/24 12:58 Pulse Ox 98 08/07/24 12:58 Oxygen Delivery Method Room Air 08/07/24 12:58 BMI result Body Mass Index 33.0 Tobacco/Smoking Status: Tobacco use Status Tobacco use date assessed 08/07/24 08/07/24 13:04 Patient Tobacco Use Status Former Tobacco user 08/07/24 13:04 e-Cigarette/Vaping Use Never Used 08/07/24 13:04 Depression Screening Interpretation: Negative Thrive Assessment: Date of Thrive Assessment Date Thrive assessed 07/31/24 08/07/24 13:04 Currently or been in a relationship where the following occur: No concerns reported Coding Level of Care Code Est Pt Level 4 (36830) Diagnoses Emotional disorder F99 Hypertension, essential I10 Chronic GERD K21.9 Environmental allergies Z91.09 Depression, major, in remission F32.5 Psoriasis (a type of skin inflammation) L40.9 Moderate persistent asthma without complication J45.40 Asthma complication type: uncomplicated Lipid disorder E78.9 Class 2 severe obesity due to excess calories with serious comorbidity and body mass index (BMI) of 35.0 to 35.9 in adult E66.01; Z68.35 Obesity classification: adult class 2 (BMI 35 - 39.9) Serious obesity comorbidity presence: with serious comorbidity Body mass index: BMI 35.0-35.9 Additional Codes PHQ-9 - 60328 - PHQ-9 Billing: Yes ([id number]) Assessment & Plan Assessment & Plan (1) Emotional disorder: Code(s): F99 - Mental disorder, not otherwise specified Category: Medical (2) Hypertension, essential: Code(s): I10 - Essential (primary) hypertension Category: Medical (3) Chronic GERD: Code(s): K21.9 - Gastro-esophageal reflux disease without esophagitis Category: Medical (4) Environmental allergies: Code(s): Z91.09 - Other allergy status, other than to drugs and biological substances Category: Medical (5) Depression, major, in remission: Code(s): F32.5 - Major depressive disorder, single episode, in full remission Category: Medical (6) Psoriasis (a type of skin inflammation): Code(s): L40.9 - Psoriasis, unspecified Category: Medical (7) Asthma, moderate persistent: Code(s): J45.40 - Moderate persistent asthma, uncomplicated Category: Medical Qualifiers: Asthma complication type: uncomplicated Qualified Code(s): J45.40 - Moderate persistent asthma, uncomplicated (8) Lipid disorder: Code(s): E78.9 - Disorder of lipoprotein metabolism, unspecified Category: Medical (9) Obesity due to excess calories: Code(s): E66.09 - Other obesity due to excess calories Category: Medical Qualifiers: Obesity classification: adult class 2 (BMI 35 - 39.9) Serious obesity comorbidity presence: with serious comorbidity Body mass index: BMI 35.0-35.9 Qualified Code(s): E66.01 - Morbid (severe) obesity due to excess calories; Z68.35 - Body mass index [BMI] 35.0-35.9, adult Plan - The patient is a 63 year old female presenting with weight management and emotional instability. Also due for regular follow-up - Weight management includes recent fluctuations, without any significant weight gain during the holidays compared to prior years, with current weight at 186 pounds. Contributing factors include lack of exercise. - Emotional sensitivity has been longstanding but has worsened, resulting in uncontrolled crying episodes. She is currently on Wellbutrin, . - History of dermatitis, particularly on the legs, with upcoming plans for patch testing. Through Dermatology - Asthma is reported as stable under current management. - Allergic rhinitis is managed with montelukast and cetirizine, though allergies are increasing. - blood pressure is stable patient is taking hydrochlorothiazide 50 mg and losartan 50 mg b.i.d. - GERD is stable with omeprazole - continue semaglutide 2 mg for weight loss, we will review the weight with next appointment and then decide whether to stop or continue Her BMI is 33.0 Problem List - Weight Management Issues - Emotional Instability - Dermatitis - Asthma - Allergic Rhinitis - hypertension - GERD Patient Instructions - Continue with current medications for asthma and allergic rhinitis. - Commence Escitalopram at 10 mg, starting with half a tablet for a week before increasing to a full tablet, and monitor for adverse effects. - Engage in regular physical activity, such as walking, especially as weather permits. - Schedule a follow-up appointment in three months to assess weight management progress. - Conduct labs before the next visit. - Plan for a dermatology consultation for patch testing for dermatitis. - Discuss potential therapy options for emotional sensitivity with a qualified therapist. Patient has met with our behavior health coordinator so we can assist her Orders: Orders Comprehensive [place]. Panel Fast 2 Months E66.01 - Morbid (severe) obesity due to excess calories, E78.9 - Disorder of lipoprotein metabolism, unspecified, F32.5 - Major depressive disorder, single episode, in full remission, I10 - Essential (primary) hypertension, J45.40 - Moderate persistent asthma, uncomplicated, K21.9 - Gastro-esophageal reflux disease without esophagitis, L40.9 - Psoriasis, unspecified, Z68.35 - Body mass index [BMI] 35.0-35.9, adult, Z91.09 - Other allergy status, other than to drugs and biological substances Lipase 2 Months E66.01 - Morbid (severe) obesity due to excess calories, E78.9 - Disorder of lipoprotein metabolism, unspecified, F32.5 - Major depressive disorder, single episode, in full remission, I10 - Essential (primary) hypertension, J45.40 - Moderate persistent asthma, uncomplicated, K21.9 - Gastro-esophageal reflux disease without esophagitis, L40.9 - Psoriasis, unspecified, Z68.35 - Body mass index [BMI] 35.0-35.9, adult, Z91.09 - Other allergy status, other than to drugs and biological substances Complete Blood Count Auto Diff 2 Months E66.01 - Morbid (severe) obesity due to excess calories, E78.9 - Disorder of lipoprotein metabolism, unspecified, F32.5 - Major depressive disorder, single episode, in full remission, I10 - Essential (primary) hypertension, J45.40 - Moderate persistent asthma, uncomplicated, K21.9 - Gastro-esophageal reflux disease without esophagitis, L40.9 - Psoriasis, unspecified, Z68.35 - Body mass index [BMI] 35.0-35.9, adult, Z91.09 - Other allergy status, other than to drugs and biological substances Lipid Panel 2 Months E66.01 - Morbid (severe) obesity due to excess calories, E78.9 - Disorder of lipoprotein metabolism, unspecified, F32.5 - Major depressive disorder, single episode, in full remission, I10 - Essential (primary) hypertension, J45.40 - Moderate persistent asthma, uncomplicated, K21.9 - Gastro-esophageal reflux disease without esophagitis, L40.9 - Psoriasis, unspecified, Z68.35 - Body mass index [BMI] 35.0-35.9, adult, Z91.09 - Other allergy status, other than to drugs and biological substances Amylase 2 Months E66.01 - Morbid (severe) obesity due to excess calories, E78.9 - Disorder of lipoprotein metabolism, unspecified, F32.5 - Major depressive disorder, single episode, in full remission, I10 - Essential (primary) hypertension, J45.40 - Moderate persistent asthma, uncomplicated, K21.9 - Gastro-esophageal reflux disease without esophagitis, L40.9 - Psoriasis, unspecified, Z68.35 - Body mass index [BMI] 35.0-35.9, adult, Z91.09 - Other allergy status, other than to drugs and biological substances Medications: New escitalopram oxalate (Lexapro) Take half a tablet for a week and then full tablet 10 mg PO DAILY 30 tabs 2RF
--- OUTSIDE RECORDS SUMMARY | 2024-08-07 15:36 | XMS_ITS | Clinical Summary ---
Author Organization [facility] Address [address] [place] [address] Care Team Providers Care Transaction Coordinator Name Role Phone Unavailable Primary Care Provider Unavailabl e Social History Tobacco Use Types Packs/Day Years Used Date Smoking Tobacco: Never Assessed Sex and Gender Information Value Date Recorded Sex Assigned at Not on file Gender Identity Not on file Sexual Orientation Not on file Plan of Treatment Health Maintenance Due Date Last Done Comments Hepatitis C Virus Screening 1960 HIV Screening 12/13/1971 DTaP/Tdap/Td Vaccines (1 - Tdap) 1977 Pneumococcal Vaccines 50+ (1 of 1 - PCV) 2008 Zoster (Shingles) Vaccine (1 of 2) 2008 COVID-19 Vaccine ( - 2023-2 5 season) 2024 RSV Vaccine 60 years and old er and Patients (1 - 1-dose 75+ series) 2033 Hepatitis B Vaccines Aged Out No long er eligible based on patient's age to complete this topic
--- OUTSIDE RECORDS SUMMARY | 2024-08-07 15:36 | XMS_ITS | Encounter Summary ---
Author Organization [facility] Address [address] [place] [address] Care Team Providers Care Cleat Maker Name Role Phone Unavailable Primary Care Provider Unavailabl e Encounter Details Date Type Department Care Team (Late st Contact Info) Description 04/03/2024 Scanned Document [facility] DERMATOLOGY SCAN Dermatology, Scan Social History Tobacco Use Types Packs/Day Years Used Date Smoking Tobacco: Never Assessed Sex and Gender Information Value Date Recorded Sex Assigned at Not on file Gender Identity Not on file Sexual Orientation Not on file documented as of this encounter Plan of Treatment Not on file documented as of this encounter Visit Diagnoses Not on filedocumented in this encounter
--- OUTSIDE RECORDS SUMMARY | 2024-08-07 15:36 | XMS_ITS | Clinical Summary ---
Author Organization [facility] [employer] Address [address] [place] [address] Care Team Providers Care Carrier Loader Name Role Phone Md, Unknown Primary Care Provider Unavailabl e Allergies Active Allergy Reactions Criticality Noted Date Comments Erythromycin Nausea 07/28/2021 Mares my stomach up States the patient Medications losartan (Cozaar) 25 mg tablet 2 Active fish oil concentrate (OMEGA-3) 300-1,000 mg capsule Take 1 capsule by mouth 1 (one) time each day. Active ddnz-sqj-ewz-ce d-qbkj-qsqb-pec (Fiber 6) 1,000 mg tablet 2 tablets 1 (one) time each day. Active yxjynfln-hfa-IC -lycopen-lutein (Centrum Silver) 0.4-300-250 mg-mcg-mcg tablet 1 (one) time each day. Active calcium carbonate-vitam in D3 600 mg-10 mcg (400 unit) tablet 2 tablets 1 (one) time each day. Active albuterol (Proventil;Vent victor hugo;Proair) 90 mcg/actuation inhaler INHALE 2 PUFFS EVERY 6 HOURS 30 DAYS NEEDED FOR BRONCHOSPASM 1 Active buPROPion XL (Wellbutrin Xl) 150 mg 24 hr tablet Take 1 tablet by mouth. Active cetirizine (Zyrtec) 10 mg tablet Take 1 tablet by mouth. Active omeprazole (PriLOSEC) [address] capsule 2 Active hydroCHLOROthia zide (HYDRODIURIL) 50 mg tablet Take 50 mg by mouth 1 (one) time each day. 2 Active montelukast (Singulair) 10 mg tablet 2 Active Social History Tobacco Use Types Packs/Day Years Used Date Smoking Tobacco: Never Assessed Comments Unknown Sex and Gender Information Value Date Recorded Sex Assigned at Not on file Legal Sex Female 1:36 PM EST Gender Identity Not on file Sexual Orientation Not on file Last Filed Vital Signs Vital Sign Reading Time Taken Comments Blood Pressure 144/85 07/28/2021 12:05 PM EST Pulse 76 07/28/2021 12:05 PM EST Temperature 36.9 ??C (98.5 ??F) 07/28/2021 12:[address] Respiratory Rate - - Oxygen Saturation 99% 07/28/2021 12:05 PM EST Inhaled Oxygen Concentration - - Weight 85.7 kg (189 lb) 07/28/2021 12:05 PM EST Height 160 cm (5' 3 ) 07/28/2021 12:05 PM EST Body Mass Index 33.48 07/28/2021 12:05 PM EST Plan of Treatment Health Maintenance Due Date Last Done Comments CT Colonography 1958 Colonoscopy 1958 Colorectal Cancer Screening 1958 FIT-DNA 1958 FIT 1958 FOBT 1958 Hepatitis C Screening 1958 Mammogram 1958 Sigmoidoscopy 1958 Annual Physical Exam 1976 Tdap and Td Vaccines Adult 1977 Pap Smear 12/13/1979 Cervical Cancer Screening 1988 HPV/Cotest 1988 Osteoporosis Screening 2008 Pneumococcal Vaccine: 50+ Years (1 of 1 - PCV) 2008 Zoster Vaccines (1 of 2) 2008 Fall Risk Screening 12/13/2023 COVID-19 Vaccine (3 - 2023-2 5 season) 2024 09/12/2020, 08/19/2020 Influenza Vaccine (#1) 2024 RSV 60+ (1 - 1-dose 75+ series) 2033 HIB Vaccines Aged Out No longer eligi ble based on patient's age to complete this topic HPV Vaccines Aged Out No longer eligi ble based on patient's age to complete this topic Hepatitis A Vaccines Aged Out No long er eligible based on patient's age to complete this topic IPV Vaccines Aged Out No longer eligi ble based on patient's age to complete this topic Meningococcal Vaccine Aged Out No rolly aminata eligible based on patient's age to complete this topic RSV <20 Months Aged Out No longer francois gible based on patient's age to complete this topic Insurance [facility] Care Teams Carrier Loader Relationship Specialty Start Date End Date Md, Unknown 1 Ahmett Daylin PCP - General 07/28/21
--- OUTSIDE RECORDS SUMMARY | 2024-08-07 15:36 | XMS_ITS | Clinical Summary ---
Author Organization [facility] Address [address] [place] [address] Phone Care Team Providers Care Apprentice Plumber Name Role Phone Annita Malloy MD Primary Care Provider Allergies Active Allergy Reactions Criticality Noted Date Comments Egg Low 08/12/2023 Pollen Extracts Medium 08/12/2023 Trace Metals Medium 08/12/2023 Other Reaction(s): Rash/Dermatitis Pt states skin reaction only Medications acetaminophen (TYLENOL 8 HOUR ORAL) Take 1,000 mg by mouth every 6 hours as needed. Active yeast,dried, S. cerevisiae, (FERNANDEZ'S YEAST ORAL) Take 1 Capsule by mouth daily. Active CALCIUM CARBONATE-VITAM IN D3 ORAL Take 1 Tablet by mouth daily. Active multivit-min/fo lic acid/lutein (CENTRUM SILVER ORAL) Take 1 Tablet by mouth daily. Active albuterol HFA (PROAIR HFA ; PROVENTIL HFA ; VENTOLIN HFA) 90 mcg/actuation inhaler Inhale 2 Puffs into the lungs every 6 hours as needed. Active budesonide-form oteroL (SYMBICORT) 160-4.5 mcg/actuation inhaler Inhale 2 Puffs into the lungs 2 times daily. Active buPROPion XL (WELLBUTRIN XL) 150 mg 24 hr tablet Take 1 Tablet by mouth every morning. Active hydroCHLOROthia zide (HYDRODIURIL) 50 mg tablet Take 1 Tablet by mouth daily. Active ibuprofen (ADVIL,MOTRIN) 400 mg tablet Take 1 Tablet by mouth. Active losartan (COZAAR) 50 mg tablet Take 1 Tablet by mouth daily. Active montelukast (SINGULAIR) 10 mg tablet Take 1 Tablet by mouth at bedtime. Active omega-3 acid ethyl esters (LOVAZA) 1 gram capsule Take 1 Capsule by mouth daily. Active omeprazole (PriLOSEC) [address] capsule Take 1 Capsule by mouth daily. Active semaglutide (Ozempic) 0.25 mg or 0.5 mg(2 mg/1.5 mL) injection pen Inject 1 Dose into the skin every 7 days. Active coenzyme Q10 400 mg capsule Take 1 Capsule by mouth daily. Active methylPREDNISol one (MEDROL DOSPAK) 4 mg tablet TAKE 6 TABLETS ON DAY 1 DIRECTED ON PACKAGE AND DECREASE BY 1 TAB EACH DAY FOR A TOTAL OF 6 DAYS 03/19/2024 Active Active Problems Problem Noted Date Diagnosed Date History of lung cancer 05/01/2024 Assessment & Plan (05/01/2024 2:35 PM EST): Ms. Alberto is a 63 yr. female who on 10/03/2023 underwent a navigational bronchoscopy with right upper lobectomy and mediastinal lymphadenectomy for a stage 1A (pT1a pN0) adenocarcinoma. She presents today for review of her first postoperative chest CT surveillance scan. Her most recent chest CT scan for which images I personally viewed and interpreted and agree with radiologist findings which was performed on 04/19/2024 and showed no new or worsening pulmonary nodules or mediastinal lymphadenopathy to suggest recurrence of disease. Her next chest CT surveillance scan will be due in 6 months which will be September 2024 and have a visit at the thoracic surgery department thereafter to discuss results. Pulmonary nodule 08/12/2023 Overview (04/24/2024): Last Assessment & Plan: 62-year-old woman former smoker quit about a month and a half ago previously smoked a pack to a pack and half per day starting at age 14 up until that point who presents with a slowly enlarging mixed pulmonary nodule near the apex of the right upper lobe. This is very suspicious for a clinical stage I lung cancer probably of a lipidic subtype. I had a long discussion with her about pulmonary nodules in general and how their size, shape, and change manager time affect her level of suspicion for malignancy. I also discussed lung cancer diagnosis, staging, and treatment in detail. For these reasons I think this is a clinical stage I lung cancer until proven otherwise. I did discuss with her options of continued observation which I would not recommend versus needle biopsy versus surgical wedge resection possible lobectomy. She understood the risks, benefits, and all the alternatives and decided to go with surgery. Plan then will be for pulmonary function testing, a preoperative visit with her primary care, and navigational bronchoscopy with dye marking, da Shobha right upper lobe wedge resection possible lobectomy. All questions were answered. 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 Asthma 5 yrs. Cancer (CMS/HCC) Spot on Lung COPD (chronic obstructive pulmonary disease) (CM S/HCC) Hyperlipidemia GERD (gastroesophageal reflux disease) Skin cancer Family History Medical History Relation Name Comments Depression Father Ray Heart attack Father Ray Heart disease Father Ray Sudden Father Ray Heart disease Father's Brother 1 Zeb II Heart disease Father's Brother 2 Celso Heart disease Father's Brother 3 Cosme Depression Father's Sister Kiara Cancer Maternal Grandfather Dziadzia Hypertension Maternal Grandfather Dziadzia Obesity Maternal Grandfather Dziadzia Cancer Maternal Grandmother Baci Clotting disorder Maternal Grandmother Baci Diabetes type I Maternal Grandmother Baci Heart failure Maternal Grandmother Baci Hypertension Maternal Grandmother Baci Kidney disease Maternal Grandmother Baci Obesity Maternal Grandmother Baci Anemia Mother Ceil Asthma Mother Ceil Clotting disorder Mother Ceil Diabetes type I Mother Ceil Heart disease Mother Ceil Hypertension Mother Ceil Kidney disease Mother Ceil Obesity Mother Ceil Hypertension Mother's Brother Fabrice Heart attack Paternal Grandfather Zeb Heart disease Paternal Grandfather Zeb Asthma Sister 1 Catrachita Obesity Sister 2 Gaby Obesity Sister 3 Batsheva Obesity Sister 4 Catrachita P Thyroid disease Sister 5 Gaby B Relation Name Status Comments Father Ray Father's Brother 1 Zeb II Father's Brother 2 Celso Father's Brother 3 Cosme Father's Sister Kiara Maternal Grandfather Octavio Maternal Grandmother Stephen Mother Michelle Mother's Brother Fabrice Paternal Grandfather Zeb Sister 1 Catrachita Sister 2 Gaby Sister 3 Batsheva Sister 4 Catrachita P Sister 5 Gaby B Social History Tobacco Use Types Packs/Day Years Used Date Smoking Tobacco: Former Cigarettes 1 40 0 05/30/1971 - 07/08/2023 Smokeless Tobacco: Never Tobacco Cessation:Counseling Given: Not Answered Alcohol Use Standard Drinks/Week Comments Yes 2 (1 standard drink = 0.6 oz pur e alcohol) Comments Unknown Sex and Gender Information Value Date Recorded Sex Assigned at Not on file Legal Sex Female 1:27 AM EST Gender Identity Not on file Sexual Orientation Not on file Obstetrics History Last Filed Vital Signs Vital Sign Reading Time Taken Comments Blood Pressure 139/76 05/02/2024 1:33 PM EST Pulse 77 05/02/2024 1:33 PM EST Temperature 36.8 ??C (98.2 ??F) 05/02/2024 1:33 PM ES T Respiratory Rate 18 05/02/2024 1:33 PM EST Oxygen Saturation 97% 05/02/2024 1:33 PM EST Inhaled Oxygen Concentration - - Weight 85.5 kg (188 lb 6.4 oz) 05/02/2024 1:33 P M EST Height 160 cm (5' 3 ) 05/02/2024 1:33 PM EST Body Mass Index 33.37 05/02/2024 1:33 PM EST Plan of Treatment Upcoming Encounters Date Type Department Care Team (Late st Contact Info) Description 10/10/2024 3:30 PM EDT Appointment [facility] CT Scan [address] [place] [phone] 10/17/2024 10:45 AM EDT Office Visit Thoracic Surgery - [place] [address] [facility] [address] [place] [phone] Clifford Brewer PA [address] [facility] [place] [address] [place] [id number] Health Maintenance Due Date Last Done Comments Breast Cancer Screening 1958 DTaP,Tdap,and Td Vaccines (1 - Tdap) 1977 Pneumococcal Vaccine: 50+ Years (1 of 2 - PCV) 1977 Pneumococcal Vaccine: Pediatrics (0 to 5 Years) and At-Risk Patients (6 to 64 Years) (1 of 2 - PCV) 1977 Cervical Cancer Screening: Pap Smear 12/13/1979 Zoster Vaccines (2 of 2) 05/16/2019 03/21/2019 Colorectal Cancer Screening: Colonoscopy 12/20/2023 Depression Screening 12/20/2023 Falls Risk Assessment 12/20/2023 Hepatitis C Screening 12/20/2023 Lung Cancer Screening (Low Dose CT) 12/20/2023 Osteoporosis Screening (Bone Density Screening) 12/20/2023 Social Influencers of Health Screening 12/20/2023 COVID-19 Vaccine ( season) 2024 02/25/2023, 03/26/2022, 06/20/2021, Additional history exists Influenza Vaccine (#1) 2024 , 03/26/2022, 02/06/2021, Additional history exists RSV Immunization Patients 60+ Years Old (1 - 1-dose 75+ series) 2033 HIB Vaccines Aged Out No longer eligi ble based on patient's age to complete this topic HPV Vaccines Aged Out No longer eligi ble based on patient's age to complete this topic Hepatitis A Vaccines Aged Out No long er eligible based on patient's age to complete this topic Hepatitis B Vaccines Aged Out No long er eligible based on patient's age to complete this topic IPV Vaccines Aged Out No longer eligi ble based on patient's age to complete this topic MMR Vaccines Aged Out No longer eligi ble based on patient's age to complete this topic Meningococcal ACWY Vaccine Aged Out N o longer eligible based on patient's age to complete this topic Meningococcal B Vacine Aged Out No lo nger eligible based on patient's age to complete this topic RSV Immunization Patients Under 20 months Aged Out No longer eligible based on patient's age to complete this topic Varicella Vaccines Aged Out No longer eligible based on patient's age to complete this topic Insurance [employer] [facility] MEDICARE Care Teams Apprentice Plumber Relationship Specialty Start Date End Date Annita Malloy MD [address] [place] [phone] PCP - General Internal Medicine 08/19/20
--- OUTSIDE RECORDS SUMMARY | 2024-08-07 15:36 | XMS_ITS | Clinical Summary ---
Author Organization [facility] Address [address] [place] [address] Care Team Providers Care Photocopying Equipment Mechanic Name Role Phone Annita Malloy MD Primary Care Provider [phone] Immunizations Name Administration Dates Next Due Covid-19 (Pfizer) Dilution Required 09/12/2020,0 08/19/2020 Social History Tobacco Use Types Packs/Day Years Used Date Smoking Tobacco: Never Assessed Sex and Gender Information Value Date Recorded Sex Assigned at Female 08/19/2020 1:32 PM EDT Gender Identity Not on file Sexual Orientation Not on file Job Start Date Occupation Industry Not on file Not on file Not on file Plan of Treatment Health Maintenance Due Date Last Done Comments Hepatitis C Screening 1960 Pneumococcal Vaccine (1 of 2 - PCV) 1964 Pneumococcal Vaccine (1 of 2 - PCV) 1964 Depression Screening 1970 Preventative Health Evaluation 1976 DTap / Tdap / Td (1 - Tdap) 1977 Shingrix-Zoster Vaccine (1 o f 2) 1977 Cervical Cancer Screening (Pap Smear) 12/13/1979 Colon Cancer Screening (Colonoscopy) 12/13/2003 Breast Cancer Screening (Mammogram) 2008 COVID-19 Vaccine (3 - Pfizer risk series) 10/10/2020 09/12/2020, 08/19/2020 Fall Risk Assessment 12/13/2023 Osteoporosis Screening (DEXA Scan) 12/13/2023 Influenza Vaccine (#1) 2024 RSV Adult > 60+ Yrs or (1 - 1-dose 75+ series) 2033 Hepatitis B Vaccines Aged Out No long er eligible based on patient's age to complete this topic RSV Ped < 20 months Aged Out No longe r eligible based on patient's age to complete this topic Care Teams Photocopying Equipment Mechanic Relationship Specialty Start Date End Date Annita Malloy MD [address] [place] [phone] PCP - General Internal Medicine 08/19/20
== END 2024-08-07 13:43 | disposition home or self-care (01) ==
LOC: HO.HMCC 12:58
PROVIDERS: PCP Internal Medicine; Visit Provider Internal Medicine
DX: I10 Essential (primary) hypertension (principal); F32.5 Major depressive disorder, single episode, in full remission; E66.01 Morbid (severe) obesity due to excess calories; Z68.35 Body mass index [BMI] 35.0-35.9, adult; F99 Mental disorder, not otherwise specified; K21.9 Gastro-esophageal reflux disease without esophagitis; Z91.09 Other allergy status, other than to drugs and biological substances; J45.40 Moderate persistent asthma, uncomplicated; L40.9 Psoriasis, unspecified; E78.9 Disorder of lipoprotein metabolism, unspecified

== ENCOUNTER → 2024-08-07 12:57 | Outpatient (BNVA) | payer OTHER, SELFPAY | PROVIDERS: PCP Internal Medicine; Visit Provider Internal Medicine | DX: F99 Mental disorder, not otherwise specified (principal); I10 Essential (primary) hypertension; K21.9 Gastro-esophageal reflux disease without esophagitis; F32.5 Major depressive disorder, single episode, in full remission; L40.9 Psoriasis, unspecified; J45.40 Moderate persistent asthma, uncomplicated; E78.9 Disorder of lipoprotein metabolism, unspecified; E66.01 Morbid (severe) obesity due to excess calories; Z68.35 Body mass index [BMI] 35.0-35.9, adult; Z79.899 Other long term (current) drug therapy; Z91.09 Other allergy status, other than to drugs and biological substances | CPT/HCPCS: 96127 ==

== ENCOUNTER 2024-11-12 11:54 | Outpatient (REF) | payer OTHER, SELFPAY ==
[2024-11-12 13:25] LABS: MANUAL DIFF FLAG NO
--- OUTSIDE RECORDS SUMMARY | 2024-11-12 13:26 | XMS_ITS | Clinical Summary ---
Author Organization [facility] Address [address] [place] [address] Care Team Providers Care Opera Singer Name Role Phone Annita Malloy MD Primary Care Provider [phone] Immunizations Name Administration Dates Next Due Covid-19 [...] Last Done Comments Hepatitis C Screening 1958 Depression Screening 1970 Preventative Health Evaluation 1976 DTap / Tdap / Td (1 - Tdap) 1977 Cervical Cancer Screening (Pap Smear) 12/13/1979 Colon Cancer Screening (Colonoscopy) 12/13/2003 Breast Cancer Screening (Mammogram) 2008 Shingrix-Zoster Vaccine (1 o f 2) 2008 Fall Risk Assessment 12/13/2023 Osteoporosis Screening (DEXA Scan) 12/13/2023 Pneumococcal Vaccine (1 of 1 - PCV) 12/13/2023 COVID-19 Vaccine (3 - 2023-2 5 season) 2024 09/12/2020, 08/19/2020 Influenza Vaccine (Season Ended) 2025 RSV Adult > 60+ Yrs or (1 - 1-dose 75+ series) 2033 Hepatitis B Vaccines Aged Out No long er eligible based on patient's age to complete this topic Pneumococcal Vaccine Aged Out No long er eligible based on patient's age to complete this topic RSV Ped < 20 months Aged Out No longe r eligible based on patient's age to complete this topic Care Teams Opera Singer Relationship Specialty Start Date End Date Annita Malloy MD [address] [place] [phone] PCP - General Internal Medicine 08/19/20
[2024-11-12 13:30] LABS: Basophils Absolute Auto 0.1 X10*3/uL (0.0-0.2); Eosinophils Absolute Auto 0.3 X10*3/uL (0.0-0.4); Eosinophils Percent Auto 5.3 % (0-4); Hematocrit 40.2 % (37.0-47.0); Hemoglobin 13.2 g/dl (12.0-16.0); Imm Gran Abs Auto 0.03 X10*3/uL (0.00-0.03); Imm Gran Pct Auto 0.5 % (0.0-0.4); Lymphocytes Absolute Auto 1.9 X10*3/uL (1.2-4.9); Lymphocytes Percent Auto 31.1 % (20-40); Mean Corpuscular HGB Conc 32.8 g/dl (31.0-35.0); Mean Corpuscular Hemoglobin 29.7 pg (27.0-33.0); Mean Corpuscular Volume 90.5 fL (80.0-98.0); Mean Platelet Volume 9.7 fL (9.4-12.3); Monocytes Absolute Auto 0.5 X10*3/uL (0.1-1.2); Monocytes Percent Auto 8.1 % (2-11); Neutrophils Absolute Auto 3.4 x10*3/uL (2.0-8.3); Platelet Count 294 X10*3/uL (160-400); Red Blood Count 4.44 X10*6/uL (4.20-5.50); Red Cell Distribution Width 13.4 % (11.0-16.0); White Blood Count 6.2 X10*3/uL (4.8-10.8)
[2024-11-12 14:01] LABS: Alanine Aminotransferase 22 U/L (0-31); Albumin Level 4.5 g/dL (3.5-5.0); Alkaline Phosphatase 104 U/L (39-117); Anion Gap 14 (12-20); Aspartate Amino Transferase 25 U/L (5-31); Bilirubin Total 0.7 mg/dL (0.0-1.0); Blood Urea Nitrogen 22 mg/dL (9-16); Carbon Dioxide 28 mmol/L (22-29); Chloride 103 mmol/L (96-108); Cholesterol 215 mg/dL (<200); Estimated Glomerular Filt Rate > 60; Glucose Fasting 92 mg/dL (60-99); HDL Cholesterol 60 mg/dL (>40); LDL Cholesterol Calculated 122 mg/dL (<100); Lipase 28 U/L (8-78); Sodium 141 mmol/L (135-145); Triglycerides 168 mg/dL (<150)
[2024-11-12 14:09] LABS: Amylase 17 U/L (28-100)
== END 2024-11-12 11:55 | disposition home or self-care (01) ==
LOC: HO.HMGCLDS 11:54
PROVIDERS: PCP Internal Medicine; Visit Provider Internal Medicine
DX: J45.40 Moderate persistent asthma, uncomplicated (principal); Z68.35 Body mass index [BMI] 35.0-35.9, adult; E66.01 Morbid (severe) obesity due to excess calories; E78.9 Disorder of lipoprotein metabolism, unspecified; L40.9 Psoriasis, unspecified; F32.5 Major depressive disorder, single episode, in full remission; Z91.09 Other allergy status, other than to drugs and biological substances; K21.9 Gastro-esophageal reflux disease without esophagitis; I10 Essential (primary) hypertension
CPT/HCPCS: 36415; 80053; 80061; 82150; 83690; 85025

== ENCOUNTER 2024-11-14 13:33 | Outpatient (AMB) | payer OTHER, SELFPAY ==
--- NOTE | 2024-11-14 13:38 | A.OFFPC_ITS ---
Vital Signs 11/14/24 13:39 Height 5 ft 3 in Weight 186 lb 2 oz BMI 33.0 BP 134/80 Blood Pressure Location Rt brachial Position Sitting Pulse 82 Pulse Source Pulse Oximeter Temp 98.4 F Temp Source Oral Pulse Oximetry (%) 98 Oxygen Delivery Method Room Air Intake Visit Reasons: 3 month follow up Hearing Care Practitioner Required: No Allergies Seasonal Allergies Allergy (Mild, Verified 11/14/24 13:42) Sneezing eggs Allergy (Mild, Uncoded 06/14/24 12:59) Unknown erithomycin Allergy (Mild, Uncoded 06/14/24 13:00) Diarrhea Medication List - Last Reconciled 11/14/24 by Annita Malloy MD albuterol sulfate 90 mcg/actuation 2 puffs inhalation Q6H PRN 30 days budesonide-formoterol 160-4.5 mcg/actuation (Symbicort) 2 puffs PO BID bupropion HCl XL (Wellbutrin XL) 150 mg PO QAM 90 days cetirizine (Zyrtec) 10 mg PO DAILY escitalopram oxalate (Lexapro) 10 mg PO DAILY fluticasone propionate 50 mcg/actuation (Flonase Allergy Relief) 1 spray intranasal DAILY hydrochlorothiazide 50 mg PO DAILY losartan 50 mg PO BID 90 days montelukast 10 mg PO DAILY omeprazole 20 mg PO DAILY 90 days semaglutide 2 mg (0.75 mL) subcut QWEEK 30 days tacrolimus 0.1% topical BID Tobacco use date assessed: 08/07/24 Fall risk assessment: No Falls in past year Last assessed Fall Risk: 11/14/24 Dental Screening Dental Screen Date: 08/07/24 Did you have a dental visit in the last 12 months?: Yes Did you have a dental problem in the last 6 months where you did not have access to dental care?: No Was dental information given to patient?: Patient has dentist HPI 3 month follow up HPI Details History - The patient is a 63-year-old female pr esenting with concerns about weight management while using semaglutide. - The patient reports that her weight bermudez s not changed despite taking semaglutide at the maximum dose. - Recently, she has been able to consume carbohydrates without gaining weight, which she finds unusual. 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 - She seeks to continue semaglutide candelario tment until the event, with plans to reevaluate at that time. - Temp rechecked is normal - No current urinary, respiratory, or ad ditional gastrointestinal symptoms reported. 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 - Has had long-standing dietary practice s involving carbohydrate restriction. - Reports a history of experiencing peter re skin allergies leading to blistering. - Engages with allergists for ongoing al lergy management through immunotherapy. Family History: - Progressive hearing loss in family Diagnostic Results: - Labs: Electrolytes, kidney functions, calcium, liver enzymes, pancreatic enzymes are all normal. - Fasting glucose: 92 (normal range) - LDL cholesterol: 122 (optimal value) - High levels of HDL cholesterol observe d. - CBC normal with no anemia or elevated white blood cell count. - BUN: 22 (suggests low water intake) Problem List - Asthma - Allergic Skin Reaction - Hearing Loss left ear - Essential Hypertension - Nausea and Diarrhea, Resolved last wee k - Allergic Rhinitis - Weight Management Concerns Patient Instructions - Continue monitoring weight and report any significant changes. - Continue semaglutide as per the curren t regimen and discuss any concerns with the doctor.. - Maintain adequate hydration. - Schedule an allergy and immunology kayla ointment with a new provider Review of Systems - General: No fever no chills - Neurological: No headaches no dizziness - Ear nose throat: No sore throat no hearing difficulty no ear pain - Cardiovascular: No syncope, no chest pain, no palpitations - Gastrointestinal: No nausea vomiting or diarrhea - Endocrine: No polyuria polydipsia no heat intolerance - Genitourinary: No dysuria , no blood in urine Physical Exam General: No acute distress, HEENT: No acute findings, hearing loss in one ear left, whisper test failed Neck: Supple Respiratory system: Able to talk in full sentences, no audible wheeze, different breath sounds noted Cardiovascular: S1-S2 regular in rate and rhythm Gastrointestinal: No pain, recent history of vomiting and diarrhea Extremities: No new findings BONSAI CULTURIST: Alert awake oriented x3 motor sensory intact Skin: Normal turgor, PFSH Medical History Right bundle branch block Psoriasis (a type of skin inflammation) Depression, major, in remission Allergic asthma Environmental allergies Chronic GERD Hypertension, essential Surgical History S/P lobectomy of lung History of back surgery Family History Father History of heart attack Mental health disorder Mother HTN (hypertension) Asthma Diabetes mellitus CHF (congestive heart failure) Maternal Grandmother Cancer Colon cancer Maternal Grandfather Cancer Paternal Aunt Mental health disorder Paternal Aunt Mental health disorder Paternal Aunt Mental health disorder Social History Housing: House Alcohol intake: current Alcohol intake frequency: a few times a week Alcohol type: wine and hard liquor Patient Tobacco Use Status: Former Tobacco user Cigarettes Per Day: 6 e-Cigarette/Vaping Use: Never Used service: No Current occupational status: employed Cognitive needs: No Hearing needs: No Vision needs: No Questionnaire PHQ-9 Over the last 2 weeks, how often have you been bothered by any of the following problems? 1. Little interest or pleasure in doing things: not at all 2. Feeling down, depressed, or hopeless: not at all 3. Trouble falling or staying asleep, or sleeping too much: not at all 4. Feeling tired or having little energy: not at all 5. Poor appetite or overeating: not at all 6. Feeling bad about yourself - or that you are a failure or have let yourself or your family down: not at all 7. Trouble concentrating on things, such as reading the newspaper or watching television: not at all 8. Moving or speaking so slowly that other people could have noticed. Or the opposite - being so fidgety or restless that you have been moving around a lot more than usual: not at all 9. Thoughts that you would be better off or of hurting yourself in some way: not at all Total score: 0 Depression Screening Interpretation: Negative Depression Screening Done: Yes 74586 - PHQ-9 Billing: Yes Source: Developed by Drs. Trey Bush, Aurora Roger, Amrit Espinoza and colleagues, with an educational morales from [employer]. Thrive Questionnaire Date Thrive assessed: 07/31/24 I am a: Patient What is your living situation today?: I have a steady place to live Within the past 12 months, did the food you bought not last and you didn't have the money to get more?: Never true Within the past 12 months, did you worry whether your food would run out before you got money to buy more?: Never true Do you have trouble paying for medicines?: No Do you have trouble getting transportation to medical appointments?: No Do you have trouble paying your heating and electricity bill?: No Do you have trouble taking care of your child, family member or friend?: No Do you have trouble with day-to-day activities such as bathing, preparing meals, shopping, managing finances, etc.?: No Are you currently unemployed and looking for a job?: No Are you interested in more education?: No Please select the resources that you would like help with: None Currently or been in a relationship where the following occur: No concerns reported THRIVE Score: 0 AUDIT C Alcohol Use Questionnaire (AUDIT-C) 1. How often do you have a drink containing alcohol?: 2-3 times a week 2. How many drinks containing alcohol do you have on a typical day when you are drinking?: 1 or 2 3. How often do you have six or more drinks on one occasion?: Never Total Score: 3 FERNANDO-7 AMB Questionnaire FERNANDO-7 Date FERNANDO - 7 assessed: 01/03/24 Source: Developed by Drs. Trey Bush, Aurora Roger, Amrit Espinoza and colleagues, with an educational morales from [employer]. Physical exam (Primary Care) Vital Signs: Last Vital Signs Temp 100.2 F 11/14/24 13:39 Pulse 82 11/14/24 13:39 BP 134/80 11/14/24 13:39 Pulse Ox 96 11/14/24 13:39 Oxygen Delivery Method Room Air 11/14/24 13:39 BMI result Body Mass Index 33.0 Tobacco/Smoking Status: Tobacco use Status Tobacco use date assessed 08/07/24 11/14/24 13:43 Patient Tobacco Use Status Former Tobacco user 11/14/24 13:43 e-Cigarette/Vaping Use Never Used 11/14/24 13:43 PHQ-9: PHQ-9 Score PHQ-9: Total score 0 11/14/24 13:46 Depression Screening Interpretation: Negative Thrive Assessment: Date of Thrive Assessment Date Thrive assessed 07/31/24 11/14/24 13:43 Currently or been in a relationship where the following occur: No concerns reported Coding Level of Care Code Est Pt Level 4 (20064) Diagnoses Moderate persistent asthma without complication J45.40 Asthma complication type: uncomplicated Environmental allergies Z91.09 Hypertension, essential I10 Chronic GERD K21.9 Depression, major, in remission F32.5 Psoriasis (a type of skin inflammation) L40.9 Lipid disorder E78.9 Class 2 severe obesity due to excess calories with serious comorbidity and body mass index (BMI) of 35.0 to 35.9 in adult E66.01; Z68.35 Body mass index: BMI 35.0-35.9 Obesity classification: adult class 2 (BMI 35 - 39.9) Serious obesity comorbidity presence: with serious comorbidity History of adenocarcinoma of lung Z85.118 Additional Codes PHQ-9 - 80366 - PHQ-9 Billing: Yes ([id number]) Assessment & Plan Assessment & Plan (1) Asthma, moderate persistent: Code(s): J45.40 - Moderate persistent asthma, uncomplicated Category: Medical Qualifiers: Asthma complication type: uncomplicated Qualified Code(s): J45.40 - Moderate persistent asthma, uncomplicated (2) Environmental allergies: Code(s): Z91.09 - Other allergy status, other than to drugs and biological substances Category: Medical (3) Hypertension, essential: Code(s): I10 - Essential (primary) hypertension Category: Medical (4) Chronic GERD: Code(s): K21.9 - Gastro-esophageal reflux disease without esophagitis Category: Medical (5) Depression, major, in remission: Code(s): F32.5 - Major depressive disorder, single episode, in full remission Category: Medical (6) Psoriasis (a type of skin inflammation): Code(s): L40.9 - Psoriasis, unspecified Category: Medical (7) Lipid disorder: Code(s): E78.9 - Disorder of lipoprotein metabolism, unspecified Category: Medical (8) Obesity due to excess calories: Code(s): E66.09 - Other obesity due to excess calories Category: Medical Qualifiers: Body mass index: BMI 35.0-35.9 Obesity classification: adult class 2 (BMI 35 - 39.9) Serious obesity comorbidity presence: with serious comorbidity Qualified Code(s): E66.01 - Morbid (severe) obesity due to excess calories; Z68.35 - Body mass index [BMI] 35.0-35.9, adult (9) History of adenocarcinoma of lung: Comment: Right upper lob resection stage 1A Code(s): Z85.118 - Personal history of other malignant neoplasm of bronchus and lung Category: Medical Plan History - The patient is a 63-year-old female presenting with concerns about weight management while using semaglutide. - The patient reports that her weight has not changed despite taking semaglutide at the maximum dose. - Recently, she has been able to consume carbohydrates without gaining weight, which she finds unusual. 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 - She seeks to continue semaglutide treatment until the event, with plans to reevaluate at that time. - Temp rechecked is normal - No current urinary, respiratory, or additional gastrointestinal symptoms reported. 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 - Has had long-standing dietary practices involving carbohydrate restriction. - Reports a history of experiencing severe skin allergies leading to blistering. - Engages with allergists for ongoing allergy management through immunotherapy. Family History: - Progressive hearing loss in family Diagnostic Results: - Labs: Electrolytes, kidney functions, calcium, liver enzymes, pancreatic enzymes are all normal. - Fasting glucose: 92 (normal range) - LDL cholesterol: 122 (optimal value) - High levels of HDL cholesterol observed. - CBC normal with no anemia or elevated white blood cell count. - BUN: 22 (suggests low water intake) Problem List - Asthma - Allergic Skin Reaction - Hearing Loss left ear - Essential Hypertension - Nausea and Diarrhea, Resolved last week - Allergic Rhinitis - Weight Management Concerns Patient Instructions - Continue monitoring weight and report any significant changes. - Continue semaglutide as per the current regimen and discuss any concerns with the doctor.. - Maintain adequate hydration. - Schedule an allergy and immunology appointment with a new provider Orders: Referrals Allergy & Immunology Referral Z91.09 - Other allergy status, other than to drugs and biological substances Medications: Refilled semaglutide for 4 weeks 2 mg (0.75 mL) subcut QWEEK 3.75 mL 2RF 30 days
[2024-11-14 13:39] VITALS: BP 134/80; PULSE 82; TEMP 36.9; O2SAT 98; BMI 33.0
--- OUTSIDE RECORDS SUMMARY | 2024-11-14 15:33 | XMS_ITS | Clinical Summary ---
Author Organization [facility] Address [address] [place] [address] Care Team Providers Care Greek Professor Name Role Phone Annita Malloy MD Primary Care Provider [phone] Immunizations Name Administration Dates Next Due Covid-19 [...] age to complete this topic Care Teams Greek Professor Relationship Specialty Start Date End Date Annita Malloy MD [address] [place] [id number] PCP - General Internal Medicine 08/19/20
== END 2024-11-14 14:02 | disposition home or self-care (01) ==
LOC: HO.HMCC 13:34
PROVIDERS: PCP Internal Medicine; Visit Provider Internal Medicine
DX: J45.40 Moderate persistent asthma, uncomplicated (principal); Z91.09 Other allergy status, other than to drugs and biological substances; Z68.35 Body mass index [BMI] 35.0-35.9, adult; E66.01 Morbid (severe) obesity due to excess calories; I10 Essential (primary) hypertension; K21.9 Gastro-esophageal reflux disease without esophagitis; F32.5 Major depressive disorder, single episode, in full remission; L40.9 Psoriasis, unspecified; E78.9 Disorder of lipoprotein metabolism, unspecified; Z85.118 Personal history of other malignant neoplasm of bronchus and lung

== ENCOUNTER → 2024-11-14 13:33 | Outpatient (BNVA) | payer OTHER, SELFPAY | PROVIDERS: PCP Internal Medicine; Visit Provider Internal Medicine | DX: J45.40 Moderate persistent asthma, uncomplicated (principal); F41.9 Anxiety disorder, unspecified; I10 Essential (primary) hypertension; K21.9 Gastro-esophageal reflux disease without esophagitis; F32.5 Major depressive disorder, single episode, in full remission; L40.9 Psoriasis, unspecified; E66.01 Morbid (severe) obesity due to excess calories; E66.812 Obesity, class 2; Z85.118 Personal history of other malignant neoplasm of bronchus and lung; Z68.35 Body mass index [BMI] 35.0-35.9, adult; Z91.09 Other allergy status, other than to drugs and biological substances | CPT/HCPCS: 96127 ==

== ENCOUNTER 2024-12-20 14:32 | Outpatient (REF) | payer OTHER, SELFPAY ==
--- NOTE | ~2024-12-20 | US_ITS ---
EXAMINATION: US THYROID CLINICAL INFORMATION: Nontoxic single thyroid nodule. COMPARISON: None available. TECHNIQUE: Linear transducer grayscale and color Doppler examination with attention to the region of the thyroid. FINDINGS: SIZE: Measurements of the thyroid lobes and nodules are given in sagittal, anteroposterior and transverse dimensions respectively. Right Thyroid Lobe: 4.9 x 1.9 x 1.9 cm, volume 9.3 mL. Parenchyma: The gland echotexture is heterogeneous. Thyroid vascularity is normal. Left Thyroid Lobe: 3.7 x 1.9 x 1.9 cm, volume 7.0 mL. Parenchyma: The gland echotexture is heterogeneous. Thyroid vascularity is normal. Isthmus: 0.8 cm in maximum AP dimension. Estimated total number of nodules greater than or equal to 1 cm: 1. Nude Model nodules are described as follows: 1. Location: Lower pole right thyroid lobe. Size: 1.4 x 1.1 x 1.2 cm, volume 0.99 mL. Nodule characteristics: Composition: Solid/almost completely solid (2). Echogenicity: Cannot be determined (1). Shape: Not taller than wide (0). Margins: Smooth (0). Echogenic Foci: None (0). ACR TI-RADS total points: 3 ACR TI-RADS category: 3 2. Location: Isthmus. Size: 0.9 x 0.6 x 0.9 cm, volume 0.24 mL. Nodule characteristics: Composition: Solid (2). Echogenicity: Hypoechoic (2). Shape: Not taller than wide (0). Margins: Smooth (0). Echogenic Foci: None (0). ACR TI-RADS total points: 4 ACR TI-RADS category: 4 3. Location: Midportion right lobe. Size: 0.8 x 0.3 x 0.7 cm, volume 0.1 mL. Nodule characteristics: Composition: Spongiform (0). Echogenicity: Shape: Not taller than wide (0). Margins: Smooth (0). Echogenic Foci: None (0). ACR TI-RADS total points: 0 ACR TI-RADS category: 1 4. Location: Upper pole left lobe. Size: 0.5 x 0.3 x 0.5 cm, volume 0.04 mL. Nodule characteristics: Composition: Spongiform (0). Echogenicity: Shape: Not taller than wide (0). Margins: Smooth (0). Echogenic Foci: None (0). ACR TI-RADS total points: 0 ACR TI-RADS category: 1 US/US thyroid IMPRESSION: ACR TI-RADS category: 3 and 4 ACR TI-RADS RECOMMENDATION REFERENCE: Ultrasound-guided fine-needle aspiration, followup ultrasound, no further follow up. * TR1 (0 point) and TR2 (2 points): No FNA or follow up. * TR3 (3 points): FNA if more than or equal to 2.5 cm in maximum dimension, followup ultrasound in 1, 3 and 5 years if 1.5 to 2.4 cm in maximum dimension. * TR4 (4-6 points): FNA if more than or equal to 1.5 cm in maximum dimension, followup ultrasound in 1, 2, 3 and 5 years if 1 to 1.4 cm in maximum dimension. * TR5 (more than or equal to 7 points): FNA if more than or equal to 1 cm in maximum dimension, followup ultrasound every year for 5 years if 0.5 to 0.9 cm in maximum dimension. * TR3, TR4 or TR5 nodules that are below the size threshold for followup receive no follow up. Electronically signed by: Jonathan Davenport MD 12/20/2024 03:03 PM EDT
--- OUTSIDE RECORDS SUMMARY | 2024-12-20 14:42 | XMS_ITS | Clinical Summary ---
Author Organization [facility] Address [address] [place] [address] Care Team Providers Care Steel Post Installer Name Role Phone Annita Malloy MD Primary Care Provider [phone] Immunizations Name Administration Dates Next Due Covid-19 [...] Tdap / Td (1 - Tdap) 1977 Colon Cancer Screening (Colonoscopy) 12/13/2003 Breast Cancer Screening (Mammogram) 2008 Shingrix-Zoster Vaccine (1 o f 2) 2008 Fall Risk Assessment 12/13/2023 Osteoporosis Screening (DEXA Scan) 12/13/2023 Pneumococcal Vaccine (1 of 1 - PCV) 12/13/2023 COVID-19 Vaccine (3 - 2023-2 5 season) 2024 09/12/2020, 08/19/2020 Influenza Vaccine (#1) 2025 RSV Adult > 60+ Yrs or (1 - 1-dose 75+ series) 2033 Hepatitis B Vaccines Aged Out No long er eligible based on patient's age to complete this topic RSV Ped < 20 months Aged Out No longe r eligible based on patient's age to complete this topic Care Teams Steel Post Installer Relationship Specialty Start Date End Date Annita Malloy MD [address] [facility] [place] [phone] PCP - General Internal Medicine 08/19/20
--- OUTSIDE RECORDS SUMMARY | 2024-12-20 14:42 | XMS_ITS | Encounter Summary ---
Author Organization [facility] Address [address] [place] [address] Care Team Providers Care Senior Professional Services Consultant Name Role Phone Unavailable Primary Care Provider Unavailabl e Encounter Details Date Type Department Care Team (Late st Contact Info) Description 04/03/2024 Scanned Document [facility] DERMATOLOGY SCAN Dermatology, Scan Social History Tobacco Use Types Packs/Day Years Used Date Smoking Tobacco: Never Assessed Comments Unknown Sex and Gender Information Value Date Recorded Sex Assigned at Not on file Legal Sex Female 6:17 PM EST Gender Identity Not on file Sexual Orientation Not on file documented as of this encounter Plan of Treatment Not on file documented as of this encounter Visit Diagnoses Not on filedocumented in this encounter
--- OUTSIDE RECORDS SUMMARY | 2024-12-20 14:42 | XMS_ITS | Clinical Summary ---
Author Organization [facility] Address [address] [place] [address] Care Team Providers Care Refuse Collector Name Role Phone Md, Unknown Primary Care Provider Unavailabl e Allergies Active Allergy Reactions Criticality Noted Date Comments Erythromycin Nausea 07/28/2021 Mares my stomach up States the patient Medications losartan (Cozaar) 25 mg tablet 2 Active fish oil concentrate (OMEGA-3) 300-1,000 mg capsule Take 1 capsule by mouth 1 (one) time each day. Active ybav-pua-lme-ce r-rbwy-ucyl-pec (Fiber 6) 1,000 mg tablet 2 tablets 1 (one) time each day. Active zeyikwrg-ngk-FK -lycopen-lutein (Centrum Silver) 0.4-300-250 mg-mcg-mcg tablet 1 [...] 76 07/28/2021 12:05 PM EST Temperature 36.9 C (98.5 F) 07/28/2021 12:05 PM EST Respiratory Rate - - Oxygen Saturation 99% [...] 1958 FIT-DNA 1958 FIT 1958 FOBT 1958 Mammogram 1958 Sigmoidoscopy 1958 Annual Physical Exam 1976 Tdap and Td Vaccines Adult 1977 Pneumococcal Vaccine: 50+ Years (1 of 1 - PCV) 2008 Zoster Vaccines (1 of 2) 2008 Fall Risk Screening 12/13/2023 COVID-19 Vaccine (3 - 2023-2 5 season) 2024 09/12/2020, 08/19/2020 Influenza Vaccine (#1) 2025 RSV 60+ (1 - 1-dose 75+ series) 2033 HIB Vaccines Aged Out No longer eligi ble based on patient's age to complete this topic HPV Vaccines (No Doses Required) Completed Hepatitis A Vaccines Aged Out No long [...] patient's age to complete this topic Insurance [employer] [employer] Care Teams Refuse Collector Relationship Specialty Start Date End Date , Unknown 1 Alina Mao PCP - General 07/28/21
--- OUTSIDE RECORDS SUMMARY | 2024-12-20 14:42 | XMS_ITS ---
Author Name [facility] Organization Unknown Care Team Organization Name Specialty Phone Email Start Date End [facility] 04/03/2024
--- OUTSIDE RECORDS SUMMARY | 2024-12-20 14:42 | XMS_ITS | Clinical Summary ---
Author Organization [facility] Address [address] [place] [address] Phone Care Team Providers Care Senior Oracle Developer Name Role Phone Annita Malloy MD Primary Care Provider [phone] Allergies Active Allergy Reactions Criticality Noted Date [...] Active Problems Problem Noted Date Diagnosed Date Thyroid nodule 10/19/2024 Assessment & Plan (10/19/2024 11:59 AM EDT): Most recent chest CT scan for which images I personally viewed and interpreted and agree with radiologist findings which was performed on 10/10/2024 and showed no new or worsening pulmonary nodules or mediastinal lymphadenopathy to suggest recurrence of disease. The radiologist did mention that there is a right sided thyroid nodule which appears stable from previous examination. Of note on previous chest CT there was no mention of this thyroid nodule. She was instructed to contact her PCP for which she states she has a follow-up with in October for further assessment of this thyroid nodule. History of lung cancer 05/01/2024 Assessment & Plan (10/19/2024 11:58 AM EDT): Ms. Navas is a 63 yr. female who on 10/03/2023 underwent a navigational bronchoscopy with right upper lobectomy and mediastinal lymphadenectomy for a stage 1A (pT1a pN0) adenocarcinoma. She presents today for review of her first postoperative chest CT surveillance scan. Her most recent chest CT scan for which images I personally viewed and interpreted and agree with radiologist findings which was performed on 10/10/2024 and showed no new or worsening pulmonary nodules or mediastinal lymphadenopathy to suggest recurrence of disease. The radiologist did mention that there is a right sided thyroid nodule which appears stable from previous examination. Of note on previous chest CT there was no mention of this thyroid nodule. She was instructed to contact her PCP for which she states she has a follow-up with in October for further assessment of this thyroid nodule. Assessment & Plan (05/01/2024 2:35 PM EST): Ms. Navas is a 63 yr. female who on [...] general and how their size, shape, and manager of change time affect her level of suspicion for [...] resection possible lobectomy. All questions were answered. Encounters Date Type Department Care Team Description 10/17/2024 10:45 AM EDT Office Visit Thoracic Surgery - [place] [address] [facility] [address] [place] [address] Clifford Brewer PA History of lung cancer (Primary Dx); Thyroid nodule 10/10/2024 3:10 PM EDT - 10/10/2024 11:59 PM EDT Hospital Encounter [facility] CT Scan [address] [place] [address] History of lung cancer Discharge Disposition: Home or Self Care from Last 3 Months Surgical History Surgery Date Site/Laterality Comments BRONCHOSCOPY Right PROCEDURE: ID THORACOSCOPY W/THERA WEDGE RESEXN INITIAL UNILAT; COMMENT: RUL wedge BACK SURGERY OTHER SURGICAL HISTORY PROCEDURE: REPAIR COMPLEX WOUND, NOSE/EAR/LIPS; COMMENT: 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 Asthma 5 yrs. Cancer ([facility] V24, [facility] V28) Spot on Lung COPD (chronic obstructive pu lmonary disease) ([facility] V24, [facility] V28) Hyperlipidemia GERD (gastroesophageal reflux disease) Skin cancer [...] Sign Reading Time Taken Comments Blood Pressure 152/86 10/17/2024 11:02 AM EDT Pulse 79 10/17/2024 11:02 AM EDT Temperature 36.5 C (97.7 F) 10/17/2024 11:02 AM EDT Respiratory Rate 14 10/17/2024 11:0 2 AM EDT Oxygen Saturation 98% 10/17/2024 11: 02 AM EDT Inhaled Oxygen Concentration - - Weight 83.9 kg (184 lb 14.4 oz) 025 11:02 AM EDT Height 160 cm (5' 3 ) 10/17/2024 11:02 AM EDT Body Mass Index 32.75 10/17/2024 11:02 AM EDT Plan of Treatment Health Maintenance Due Date Last Done Comments Breast Cancer Screening 1960 DTaP,Tdap,and Td Vaccines (1 - Tdap) 1977 Pneumococcal Vaccine: 50+ Years (1 of 1 - PCV) 2008 Zoster Vaccines (2 of 2) 05/16/2019 03/21/2019 Colorectal Cancer Screening: Colonoscopy 12/20/2023 Falls Risk Assessment 12/20/2023 Hepatitis C Screening 12/20/2023 Lung Cancer Screening (Low Dose CT) 12/20/2023 Osteoporosis Screening (Bone Density Screening) 12/20/2023 Social Influencers of Health Screening 12/20/2023 COVID-19 Vaccine ( season) 2024 02/25/2023, 03/26/2022, 06/20/2021, Additional history exists Depression Screening 05/30/2024 Influenza Vaccine (#1) 2025 , 03/26/2022, 02/06/2021, Additional history exists RSV Immunization Adult Patients (1 - 1-dose 75+ series) 2033 HIB [...] age to complete this topic Meningococcal B Vaccine Aged Out No l onger eligible based on patient's age to complete this topic RSV Immunization Patients Under 20 months Aged Out No longer eligible based on patient's age to complete this topic Varicella Vaccines Aged Out No longer eligible based on patient's age to complete this topic Procedures Procedure Name Priority Date/Time Associated Diagnosis Comments CT CHEST WO CONTRAST Routine 10/10/2024 3:37 PM EDT History of lung cancer from Last 3 Months Results * CT Chest wo Contrast (10/10/2024 3:37 PM EDT) Anatomical Region Laterality Modality Body Computed Tomogra phy 10/10/2024 4:27 PM EDT Impressions 10/10/2024 4:29 PM EDT Right upper lobectomy. No recurrent or metastatic disease in the chest. -------- FINAL REPORT -------- Dictated By: ADAM CRAIG Dictated Date: 10/10/2024 16:27 ET Assigned Physician: ADAM CRAIG Reviewed and Electronically Signed By: ADAM CRAIG Signed Date: 10/10/2024 16:29 ET Workstation ID: [id number] Transcribed By: Self Edit Transcribed Date: 10/10/2024 16:27 ET Narrative 10/10/2024 4:29 PM EDT PROCEDURE: Chest CT INDICATION: Lung cancer TECHNIQUE: Chest CT without contrast. Multi planar reformats were created and interpreted. The examination was performed utilizing dose reduction techniques. Total DLP 778 COMPARISON: 04/19/2024 FINDINGS: LUNGS/PLEURA: Central airways are patent. Right upper lobectomy. No new or suspicious pulmonary nodules. No pleural effusion or pneumothorax. MEDIASTINUM: Right thyroid nodule is unchanged. No mediastinal or hilar lymphadenopathy. Esophagus is normal. Cardiac chambers are normal in size. No pericardial effusion. Minimal coronary artery calcifications. CHEST WALL: No axillary lymphadenopathy or superficial hematoma. UPPER ABDOMEN:The visualized portions of the upper abdomen are unremarkable. BONES: No suspicious lytic or blastic lesions. Scattered degenerative changes seen throughout the bones. Procedure Note Adam Craig MD - 10/10/2024 PROCEDURE: Chest CT INDICATION: Lung cancer TECHNIQUE: Chest CT without contrast. Multi planar reformats were createdand interpreted. The examination was performed utilizing dose reductiontechniques. Total DLP 778 COMPARISON: 04/19/2024 FINDINGS: LUNGS/PLEURA: Central airways are patent. Right upper lobectomy. No newor suspicious pulmonary nodules. No pleural effusion or pneumothorax. MEDIASTINUM: Right thyroid nodule is unchanged. No mediastinal or hilarlymphadenopathy. Esophagus is normal. Cardiac chambers are normal insize. No pericardial effusion. Minimal coronary artery calcifications. CHEST WALL: No axillary lymphadenopathy or superficial hematoma. UPPER ABDOMEN:The visualized portions of the upper abdomen areunremarkable. BONES: No suspicious lytic or blastic lesions. Scattered degenerativechanges seen throughout the bones. IMPRESSION: Right upper lobectomy. No recurrent or metastatic disease in the chest. -------- FINAL REPORT -------- Dictated By: ADAM CRAIG Dictated Date: 10/10/2024 16:27 ET Assigned Physician: ADAM CRAIG Reviewed and Electronically Signed By: ADAM CRAIG Signed Date: 10/10/2024 16:29 ET Workstation ID: [id number] Transcribed By: Self Edit Transcribed Date: 10/10/2024 16:27 ET Clifford ALBERTO IMG CT PROCEDURES Final Result from Last 3 Months Insurance [facility] MEDICARE Care Teams Senior Oracle Developer Relationship Specialty Start Date End Date Annita Malloy MD [address] [place] [phone] PCP - General Internal Medicine 08/19/20
== END 2024-12-20 14:33 | disposition home or self-care (01) ==
LOC: HO.HMGCX 14:32
PROVIDERS: PCP Internal Medicine; Visit Provider Internal Medicine
DX: E04.1 Nontoxic single thyroid nodule (principal)
CPT/HCPCS: 76536

== ENCOUNTER → 2024-12-20 14:34 | Outpatient (BNV) | payer OTHER, SELFPAY | PROVIDERS: PCP Internal Medicine; Visit Provider Radiology Diagnostic Radiology | DX: E04.2 Nontoxic multinodular goiter (principal) | CPT/HCPCS: 76536 ==

== ENCOUNTER 2025-01-14 14:37 | Outpatient (AMB) | payer OTHER, SELFPAY ==
--- OUTSIDE RECORDS SUMMARY | 2025-01-14 15:20 | XMS_ITS | Encounter Summary ---
Author Organization [facility] Address [address] [place] [address] Care Team Providers Care Apparel Merchandiser Name Role Phone Unavailable Primary Care Provider Unavailabl e Encounter Details Date Type Department Care Team (Late st Contact Info) Description 04/03/2024 Scanned Document [facility] DERMATOLOGY SCAN Dermatology, Scan Social History [...]
--- OUTSIDE RECORDS SUMMARY | 2025-01-14 15:20 | XMS_ITS | Clinical Summary ---
Author Organization [facility] Address [address] [place] [address] Care Team Providers Care Bulk Picker Name Role Phone Annita Malloy MD Primary Care Provider [phone] Immunizations Name Administration Dates Next Due Covid-19 [...] age to complete this topic Care Teams Bulk Picker Relationship Specialty Start Date End Date Annita Malloy MD [address] [facility] [place] [address] PCP - General Internal Medicine 08/19/20
--- OUTSIDE RECORDS SUMMARY | 2025-01-14 15:20 | XMS_ITS | Clinical Summary ---
Author Organization [facility] Address [address] [place] [address] Care Team Providers Care Grinding Room Supervisor Name Role Phone Md, Unknown Primary Care Provider Unavailabl e Allergies Active Allergy Reactions Criticality Noted Date Comments Erythromycin Nausea 07/28/2021 Mares my stomach up States the patient Medications losartan (Cozaar) 25 mg tablet 2 Active fish oil concentrate (OMEGA-3) 300-1,000 mg capsule Take 1 capsule by mouth 1 (one) time each day. Active kcka-liv-ksp-ce r-ofoo-mcdh-pec (Fiber 6) 1,000 mg tablet 2 tablets 1 (one) time each day. Active lshigayh-dik-SF -lycopen-lutein (Centrum Silver) 0.4-300-250 mg-mcg-mcg tablet 1 [...] age to complete this topic Insurance [employer] Care Teams Grinding Room Supervisor Relationship Specialty Start Date End Date , Unknown 1 Alina Mao PCP - General 07/28/21
--- OUTSIDE RECORDS SUMMARY | 2025-01-14 15:20 | XMS_ITS | Clinical Summary ---
Author Organization [facility] Address [address] [place] [address] Phone Care Team Providers Care Floral Decorator Name Role Phone Annita Malloy MD Primary Care Provider [phone] Allergies Active Allergy Reactions Criticality Noted Date [...] general and how their size, shape, and tire changer time affect her level of suspicion for [...] AM EDT Office Visit Thoracic Surgery - [address] [place] [address] Clifford Brewer PA History of lung cancer (Primary Dx); Thyroid nodule from Last 3 Months Surgical History Surgery Date Site/Laterality Comments BRONCHOSCOPY Right PROCEDURE: CA THORACOSCOPY W/THERA WEDGE RESEXN INITIAL UNILAT; COMMENT: RUL wedge BACK SURGERY OTHER SURGICAL HISTORY PROCEDURE: REPAIR COMPLEX WOUND, NOSE/EAR/LIPS; COMMENT: 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 [place] Medical History Medical History Date Comments Abnormal ECG Apr 2023 Hypertension 5 yrs. Asthma 5 yrs. Cancer ([facility] V24, [facility] V28) Spot on Lung COPD (chronic obstructive pu lmonary disease) (CMS/[facility] V24, [facility] V28) Hyperlipidemia GERD (gastroesophageal reflux disease) Skin [...] 3 Cosme Father's Sister Kiara Maternal Grandfather Dziadzia Maternal Grandmother Baci Mother Ceil Mother's Brother Fabrice Paternal Grandfather Zeb Sister [...] Depression Screening 05/30/2024 Influenza Vaccine (#1) 2025 3, 03/26/2022, 02/06/2021, Additional history exists RSV Immunization [...] patient's age to complete this topic Insurance [facility] MEDICARE Care Teams Floral Decorator Relationship Specialty Start Date End Date Annita Malloy MD [address] [place] [address] PCP - General Internal Medicine 08/19/20
== END 2025-01-14 14:49 | disposition home or self-care (01) ==
LOC: HO.HMGAL 14:37
PROVIDERS: PCP Internal Medicine; Visit Provider Registered Nurse Emergency
DX: J30.89 Other allergic rhinitis (principal)
CPT/HCPCS: 95117; 95165

== ENCOUNTER 2025-02-13 13:27 | Outpatient (AMB) | payer OTHER, SELFPAY ==
--- OUTSIDE RECORDS SUMMARY | 2013-03-03 07:45 | XMS_ITS | Continuity of Care Document ---
Author Organization [facility] Pr actice Address [address] [place] [address] Phone Care Team Providers Care Wood Last Maker Name Role Phone Antonia Willingham MD Unavailable Unavailable Allergies, Adverse Reactions, Alerts Substance Reaction Status Criticality Penicillins hives Active No Information Medications Medication Instructions Dosage Effective Dates (start - stop) Status Comments trazodone 100 mg tablet take 1 tablet by oral route 2 times every day after meals 100 MG - Active Opana ER 10 mg tablet,extended release take 1 tablet by oral route every 8 hours at least 1 hour before or 2 hours after meals 10 MG - Active [place] 7.5 mg-325 mg tablet take 1 tablet by oral route every 6 hours as needed for pain - Active Lyrica 75 mg capsule take 1 capsule by oral route 2 times every day 75 MG - Active Lidoderm 5 % (700 mg/patch) Adhesive Patch apply 1 patch by transdermal route every day (May wear up to 12hours.) 1.00 patch - Active Cymbalta 60 mg capsule,delayed release take 1 capsule by oral route every day - Active bupropion HCl SR 150 mg tablet,sustained-re lease take 1 tablet by oral route 3 times every day 150 MG - Active Ambien 10 mg tablet take 1 tablet by ora l route every day at bedtime 10 MG - Active Procedures Procedure Date PROMETHAZINE HCL INJECTION THER/PROPH/DIAG INJ, SC/IM Office/outpatient visit, new, detailed O Advance Directives Directive Yes / No Effective Date File Name No Information Encounters Encounter Description Practice Location Reason(s) For Visit Diagnoses Date Provider Providers Copied on Encounter Office/outpat ient visit, new, detailed [facility], [address] [facility] [place], [id number], tel:[phone] [facility] nausea (chief complaint) Nausea, aloneAbdominal pain, unspecified site 3 Tarsha Knight. [address] [facility], [id number] , [place]. tel: [phone] Family History Family Member Type Diagnosis Age At Onset No Information Payers Payer name Insurance type Covered alliance party ID [place] tylorbraydon(s) [facility] PPO/POS [id number] Social History Type Description Quantity Date Captured Comments Alcohol Use Details Unknown Caffeine Use Details Unknown Tobacco Use Status No Information Smoking Status No Information Sex Female Vital Signs Date / Time: Height Weight BMI Pulse Rate Blood Pressure Temperature Respiratory Rate Body Surface Area Head Circumference Head Circ. Percentile Wt./Myron. Percentile BMI percentile Pulse Ox Inhaled Ox 11:40 AM 61.50 in 72.121 kg (159.00 lbs) 29.5 5 kg/m eter (2) 76 /min 126/84 mm[Hg] 98.80 F 16 /min Chief Complaint And Reason For Visit From encounter dated '03/03/2013 11:45'. nausea (chief complaint). Description: Onset: 1 day ago. It occurs persistently. The problem is worsening. Denies relieving factors. Associated symptoms include abdominal pain, decreased appetite, dizziness, headache, chills and decreased appetite. Pertinent negatives include blood in stool, fever,jaundice and vomiting. Additional information: meds reviewed and none new. nsaid relafen 1x/day. Nohx ulcers.. Reason For Referral Reason For Referral No Information History Of Present Illness Encounter Date Complaint History Of Prese nt Illness nausea Onset: 1 day ago . It occurs persistently. The problem is worsening. Denies relieving factors. Associated symptoms include abdominal pain, decreased appetite, dizziness, headache, chills and decreased appetite. Pertinent negatives include blood in stool, fever, jaundice and vomiting. Additional information: meds reviewed and none new. nsaid relafen 1x/day. No hx ulcers.. Functional Status Date Functional Assessmen t No Information Instructions Date Instruction Additional Infor mation No Information Assessments Type Assessment Date No Information Patient Care Teams Name Effective Dates (start - stop) Status Members No Information
[2025-02-13 13:32] VITALS: BP 140/80; PULSE 78; O2SAT 100; BMI 32.9
--- NOTE | 2025-02-13 13:32 | A.OFFPC_ITS ---
Vital Signs 02/13/25 13:32 Height 5 ft 3 in Weight 186 lb BMI 32.9 BP 140/80 H Blood Pressure Location Lt brachial Position Sitting Pulse 78 Pulse Source Pulse Oximeter Pulse Oximetry (%) 100 Intake Visit Reasons: Annual PE Allergies Seasonal Allergies Allergy (Mild, Verified 02/13/25 13:32) Sneezing eggs Allergy (Mild, Uncoded 06/14/24 12:59) Unknown erithomycin Allergy (Mild, Uncoded 06/14/24 13:00) Diarrhea Medication List - Last Reconciled 02/13/25 by Annita Malloy MD albuterol sulfate 90 mcg/actuation 2 puffs inhalation Q6H PRN 30 days budesonide-formoterol 160-4.5 mcg/actuation (Symbicort) 2 puffs PO BID bupropion HCl XL (Wellbutrin XL) 150 mg PO QAM 90 days cetirizine (Zyrtec) 10 mg PO DAILY escitalopram oxalate (Lexapro) 10 mg PO DAILY fluticasone propionate 50 mcg/actuation (Flonase Allergy Relief) 1 spray intranasal DAILY hydrochlorothiazide 50 mg PO DAILY losartan 50 mg PO BID 90 days montelukast 10 mg PO DAILY omeprazole 20 mg PO DAILY 90 days semaglutide 2 mg (0.75 mL) subcut QWEEK 30 days tacrolimus 0.1% topical BID Tobacco use date assessed: 08/07/24 Fall risk assessment: No Falls in past year Last assessed Fall Risk: 02/13/25 Dental Screening Dental Screen Date: 08/07/24 HPI Annual PE HPI Details PE apt The patient is a 64-year-old female presenting for follow-up regarding chronic disease management and health maintenance. Essential Hypertension: - Patient reports slightly elevated bloo d pressure today. Asthma: - Patient notes good control of asthma s ymptoms. Allergic Rhinitis: - Patient claims poor control despite ta lina Zyrtec and nasal sprays. Generalized Anxiety Disorder and Major Depressive Disorder: - Reports good mood control with current medication regimen. Obesity: - Weight gain due to insufficient exerci se and dietary choices. - Primary concern regarding weight manag ement and diet. unable to lose wt inspite of taking semaglutide injections Skin Allergy/Eczema: - Persistent and severe skin allergies, particularly affecting lower extremitie s. - Reaction exacerbated by exposure to en vironmental allergens. Thyroid Nodule: - Recent biopsy on larger nodule was neg ative; follow-up US in 11 months advised. by Endo Pre-diabetes: - Discussed high risk for diabetes and p reventive measures. Medical History: - Essential Hypertension - Asthma - Allergic Rhinitis - Generalized Anxiety Disorder - Major Depressive Disorder - Skin Allergy/Eczema - Thyroid Nodule - Pre-diabetes Social History: - Reports lack of sufficient exercise. - Weight gain attributed to dietary habi ts, including frequent ice cream consumption. Health Maintenance - Scheduled mammogram on June 04. - Last colonoscopy approximately 9 years prior with next recommended in one year. - Bone density test not needed for a cou ple of years, although recommended after age 65. [place] [facility] - OBGYN at [facility] for women's [facility]. - [facility] for previous colon oscopy. Medications - Inhaler - Symbicort - Wellbutrin - Zyrtec - Lexapro - Nasal spray - Hydrochlorothiazide - Losartan 50 BID - Montelukast - Omeprazole - Semaglutide Diagnostic results - Labs (October): CBC normal, electrolytes and kidney functions normal, glucose level normal, liver enzymes normal, LDL cholesterol 122. - Thyroid ultrasound resulted from biops y was negative. - Amylase level previously noted as low, considered irrelevant unless high. Patient Instructions - Consider dietary changes and exercise to manage weight and blood pressure. - continue medications - Opt for healthy snacks like fruit to m anage dietary habits. f/u 4 M Review of Systems - General: No fever no chills - Neurological: No headaches no dizzin ess - Ear nose throat: No sore throat no hearing difficulty no ear pain - Cardiovascular: No syncope, no chest pain, no palpitations - Gastrointestinal: No nausea vomiting or diarrhea - Endocrine: No polyuria polydipsia no heat intolerance - Genitourinary: No dysuria - Skin: No new complaints Physical Exam General: Cooperative, healthy appearing, comfortable, no acute distress Orientation: Patient oriented x3 Head: Normal to inspection Ears: Within normal limit visually Nose: Normal external nose present Face and sinus: Normal facial exam Eyes: Appearance normal, extraocular movement intact pupils reactive Neck: Normal visual inspection and supple Respiratory: Normal respiratory effort and able to speak in complete sentences. Clear to auscultation, no stridor Cardiovascular: S1 and S2 RRR GI: Normal to inspection. Soft to palpation and nontender Skin: Turgor normal, no acute findings, rash noted lower ext below knee bilateral [ managed by derm ] Neuro: Patient oriented x3, motor sensory intact, balance intact, tandem pass Extremities: Normal to inspection, ROM intact PFSH Medical History Right bundle branch block Psoriasis (a type of skin inflammation) Depression, major, in remission Allergic asthma Environmental allergies Chronic GERD Hypertension, essential Surgical History S/P lobectomy of lung History of back surgery Family History Father History of heart attack Mental health disorder Mother HTN (hypertension) Asthma Diabetes mellitus CHF (congestive heart failure) Maternal Grandmother Cancer Colon cancer Maternal Grandfather Cancer Paternal Aunt Mental health disorder Paternal Aunt Mental health disorder Paternal Aunt Mental health disorder Social History Housing: House Alcohol intake: current Alcohol intake frequency: a few times a week Alcohol type: wine and hard liquor Patient Tobacco Use Status: Former Tobacco user Cigarettes Per Day: 6 e-Cigarette/Vaping Use: Never Used service: No Current occupational status: employed Cognitive needs: No Hearing needs: No Vision needs: No Questionnaire PHQ-9 Over the last 2 weeks, how often have you been bothered by any of the following problems? 1. Little interest or pleasure in doing things: not at all 2. Feeling down, depressed, or hopeless: not at all 3. Trouble falling or staying asleep, or sleeping too much: not at all 4. Feeling tired or having little energy: not at all 5. Poor appetite or overeating: not at all 6. Feeling bad about yourself - or that you are a failure or have let yourself or your family down: not at all 7. Trouble concentrating on things, such as reading the newspaper or watching television: not at all 8. Moving or speaking so slowly that other people could have noticed. Or the opposite - being so fidgety or restless that you have been moving around a lot more than usual: not at all 9. Thoughts that you would be better off or of hurting yourself in some way: not at all Total score: 0 Depression Screening Interpretation: Negative Depression Screening Done: Yes 78087 - PHQ-9 Billing: Yes Source: Developed by Drs. Trey Bush, Aurora Roger, Amrit Espinoza and colleagues, with an educational morales from [employer]. Thrive Questionnaire Date Thrive assessed: 07/31/24 I am a: Patient What is your living situation today?: I have a steady place to live Within the past 12 months, did the food you bought not last and you didn't have the money to get more?: Never true Within the past 12 months, did you worry whether your food would run out before you got money to buy more?: Never true Do you have trouble paying for medicines?: No Do you have trouble getting transportation to medical appointments?: No Do you have trouble paying your heating and electricity bill?: No Do you have trouble taking care of your child, family member or friend?: No Do you have trouble with day-to-day activities such as bathing, preparing meals, shopping, managing finances, etc.?: No Are you currently unemployed and looking for a job?: No Are you interested in more education?: No Please select the resources that you would like help with: None Currently or been in a relationship where the following occur: No concerns reported THRIVE Score: 0 AUDIT C Alcohol Use Questionnaire (AUDIT-C) 1. How often do you have a drink containing alcohol?: 2-3 times a week 2. How many drinks containing alcohol do you have on a typical day when you are drinking?: 1 or 2 3. How often do you have six or more drinks on one occasion?: Never Total Score: 3 FERNANDO-7 AMB Questionnaire FERNANDO-7 Date FERNANDO - 7 assessed: 02/13/25 Feeling nervous, anxious, or on edge: 0 = Not at all Not being able to stop or control worryin = Not at all Worrying too much about different things: 0 = Not at all Trouble relaxin = Not at all Being so restless that it is hard to sit still: 0 = Not at all Becoming easily annoyed or irritable: 0 = Not at all Feeling afraid as if something awful might happen: 0 = Not at all Total FERNANDO-7 score (0-4 normal; 5-9 mild; 10-14 moderate; 15-21 severe): 0 Source: Developed by Drs. Trey Bush, Aurora Roger, Amrit Espinoza and colleagues, with an educational morales from [employer]. FERNANDO-7 Assessment Billing FERNANDO-7 Assessment Tool: FERNANDO-7 Assessment 80886 Physical exam (Primary Care) Vital Signs: Last Vital Signs Pulse 78 02/13/25 13:32 BP 140/80 H 02/13/25 13:32 Pulse Ox 100 02/13/25 13:32 BMI result Body Mass Index 32.9 Tobacco/Smoking Status: Tobacco use Status Tobacco use date assessed 08/07/24 02/13/25 13:34 Patient Tobacco Use Status Former Tobacco user 02/13/25 13:34 e-Cigarette/Vaping Use Never Used 02/13/25 13:34 PHQ-9: PHQ-9 Score PHQ-9: Total score 0 02/13/25 13:58 Depression Screening Interpretation: Negative Thrive Assessment: Date of Thrive Assessment Date Thrive assessed 07/31/24 02/13/25 13:34 Currently or been in a relationship where the following occur: No concerns reported Coding Level of Care Code Est Pt Level 4 (93633) Est Pt Prev Care >65y(19009) Diagnoses Encounter for general adult medical examination with abnormal findings Z00.01 Hypertension, essential I10 Chronic GERD K21.9 Environmental allergies Z91.09 Depression, major, in remission F32.5 Psoriasis (a type of skin inflammation) L40.9 Swelling of lower extremity M79.89 Moderate persistent asthma without complication J45.40 Asthma complication type: uncomplicated Impaired fasting blood sugar R73.01 Class 2 severe obesity due to excess calories with serious comorbidity and body mass index (BMI) of 35.0 to 35.9 in adult E66.01; Z68.35 Body mass index: BMI 35.0-35.9 Obesity classification: adult class 2 (BMI 35 - 39.9) Serious obesity comorbidity presence: with serious comorbidity Anxiety about health R45.89 Thyroid nodule E04.1 Additional Codes FERNANDO-7 Assessment Billing - FERNANDO-7 Assessment Tool: FERNANDO-7 Assessment 17280 ([id number]) PHQ-9 - 45616 - PHQ-9 Billing: Yes ([id number]) Assessment & Plan Assessment & Plan (1) Encounter for general adult medical examination with abnormal findings: Code(s): Z00.01 - Encounter for general adult medical examination with abnormal findings Category: Medical (2) Hypertension, essential: Code(s): I10 - Essential (primary) hypertension Category: Medical (3) Chronic GERD: Code(s): K21.9 - Gastro-esophageal reflux disease without esophagitis Category: Medical (4) Environmental allergies: Code(s): Z91.09 - Other allergy status, other than to drugs and biological substances Category: Medical (5) Depression, major, in remission: Code(s): F32.5 - Major depressive disorder, single episode, in full remission Category: Medical (6) Psoriasis (a type of skin inflammation): Code(s): L40.9 - Psoriasis, unspecified Category: Medical (7) Swelling of lower extremity: Code(s): M79.89 - Other specified soft tissue disorders Category: Medical (8) Asthma, moderate persistent: Code(s): J45.40 - Moderate persistent asthma, uncomplicated Category: Medical Qualifiers: Asthma complication type: uncomplicated Qualified Code(s): J45.40 - Moderate persistent asthma, uncomplicated (9) Impaired fasting blood sugar: Code(s): R73.01 - Impaired fasting glucose Category: Medical (10) Obesity due to excess calories: Code(s): E66.09 - Other obesity due to excess calories Category: Medical Qualifiers: Body mass index: BMI 35.0-35.9 Obesity classification: adult class 2 (BMI 35 - 39.9) Serious obesity comorbidity presence: with serious comorbidity Qualified Code(s): E66.01 - Morbid (severe) obesity due to excess calories; Z68.35 - Body mass index [BMI] 35.0-35.9, adult (11) Anxiety about health: Code(s): R45.89 - Other symptoms and signs involving emotional state Category: Medical (12) Thyroid nodule: Code(s): E04.1 - Nontoxic single thyroid nodule Category: Medical Plan PE apt The patient is a 64-year-old female presenting for follow-up regarding chronic disease management and health maintenance. Essential Hypertension: - Patient reports slightly elevated blood pressure today. Asthma: - Patient notes good control of asthma symptoms. Allergic Rhinitis: - Patient claims poor control despite taking Zyrtec and nasal sprays. Generalized Anxiety Disorder and Major Depressive Disorder: - Reports good mood control with current medication regimen. Obesity: - Weight gain due to insufficient exercise and dietary choices. - Primary concern regarding weight management and diet. unable to lose wt inspite of taking semaglutide injections Skin Allergy/Eczema: - Persistent and severe skin allergies, particularly affecting lower extremities. - Reaction exacerbated by exposure to environmental allergens. Thyroid Nodule: - Recent biopsy on larger nodule was negative; follow-up US in 11 months advised. by Endo Pre-diabetes: - Discussed high risk for diabetes and preventive measures. Medical History: - Essential Hypertension - Asthma - Allergic Rhinitis - Generalized Anxiety Disorder - Major Depressive Disorder - Skin Allergy/Eczema - Thyroid Nodule - Pre-diabetes Social History: - Reports lack of sufficient exercise. - Weight gain attributed to dietary habits, including frequent ice cream consumption. Health Maintenance - Scheduled mammogram on June 04. - Last colonoscopy approximately 9 years prior with next recommended in one year. - Bone density test not needed for a couple of years, although recommended after age 65. [place] [facility] - OBGYN at [facility] for women's health. - [facility] for previous colonoscopy. Medications - Inhaler - Symbicort - Wellbutrin - Zyrtec - Lexapro - Nasal spray - Hydrochlorothiazide - Losartan 50 BID - Montelukast - Omeprazole - Semaglutide Diagnostic results - Labs (October): CBC normal, electrolytes and kidney functions normal, glucose level normal, liver enzymes normal, LDL cholesterol 122. - Thyroid ultrasound resulted from biopsy was negative. - Amylase level previously noted as low, considered irrelevant unless high. Patient Instructions - Consider dietary changes and exercise to manage weight and blood pressure. - continue medications - Opt for healthy snacks like fruit to manage dietary habits. f/u 4 M Orders: Orders Hemoglobin A1c 3 Months E04.1 - Nontoxic single thyroid nodule, E66.01 - Morbid (severe) obesity due to excess calories, F32.5 - Major depressive disorder, single episode, in full remission, I10 - Essential (primary) hypertension, J45.40 - Moderate persistent asthma, uncomplicated, K21.9 - Gastro-esophageal reflux disease without esophagitis, L40.9 - Psoriasis, unspecified, M79.89 - Other specified soft tissue disorders, R45.89 - Other symptoms and signs involving emotional state, R73.01 - Impaired fasting glucose, Z00.01 - Encounter for general adult medical examination with abnormal findings, Z68.35 - Body mass index [BMI] 35.0-35.9, adult, Z91.09 - Other allergy status, other than to drugs and biological substances TSH reflex Free T4 3 Months E04.1 - Nontoxic single thyroid nodule, E66.01 - Morbid (severe) obesity due to excess calories, F32.5 - Major depressive disorder, single episode, in full remission, I10 - Essential (primary) hypertension, J45.40 - Moderate persistent asthma, uncomplicated, K21.9 - Gastro-esophageal reflux disease without esophagitis, L40.9 - Psoriasis, unspecified, M79.89 - Other specified soft tissue disorders, R45.89 - Other symptoms and signs involving emotional state, R73.01 - Impaired fasting glucose, Z00.01 - Encounter for general adult medical examination with abnormal f indings, Z68.35 - Body mass index [BMI] 35.0-35.9, adult, Z91.09 - Other allergy status, other than to drugs and biological substances Comprehensive Met. Panel 3 Months E04.1 - Nontoxic single thyroid nodule, E66.01 - Morbid (severe) obesity due to excess calories, F32.5 - Major depressive disorder, single episode, in full remission, I10 - Essential (primary) hypertension, J45.40 - Moderate persistent asthma, uncomplicated, K21.9 - Gastro-esophageal reflux disease without esophagitis, L40.9 - Psoriasis, unspecified, M79.89 - Other specified soft tissue disorders, R45.89 - Other symptoms and signs involving emotional state, R73.01 - Impaired fasting glucose, Z00.01 - Encounter for general adult medical examination with abnormal findings, Z68.35 - Body mass index [BMI] 35.0-35.9, adult, Z91.09 - Other allergy status, other than to drugs and biological substances Amylase 3 Months E04.1 - Nontoxic single thyroid nodule, E66.01 - Morbid (severe) obesity due to excess calories, F32.5 - Major depressive disorder, single episode, in full remission, I10 - Essential (primary) hypertension, J45.40 - Moderate persistent asthma, uncomplicated, K21.9 - Gastro-esophageal reflux disease without esophagitis, L40.9 - Psoriasis, unspecified, M79.89 - Other specified soft tissue disorders, R45.89 - Other symptoms and signs involving emotional state, R73.01 - Impaired fasting glucose, Z00.01 - Encounter for general adult medical examination with abnormal findings, Z68.35 - Body mass index [BMI] 35.0-35.9, adult, Z91.09 - Other allergy status, other than to drugs and biological substances Lipase 3 Months E04.1 - Nontoxic single thyroid nodule, E66.01 - Morbid (severe) obesity due to excess calories, F32.5 - Major depressive disorder, single episode, in full remission, I10 - Essential (primary) hypertension, J45.40 - Moderate persistent asthma, uncomplicated, K21.9 - Gastro-esophageal reflux disease without esophagitis, L40.9 - Psoriasis, unspecified, M79.89 - Other specified soft tissue disorders, R45.89 - Other symptoms and signs involving emotional state, R73.01 - Impaired fasting glucose, Z00.01 - Encounter for general adult medical examination with abnormal findings, Z68.35 - Body mass index [BMI] 35.0-35.9, adult, Z91.09 - Other allergy status, other than to drugs and biological substances
--- OUTSIDE RECORDS SUMMARY | 2025-02-13 17:19 | XMS_ITS | Clinical Summary ---
Author Organization [facility] Address [address] [place] [address] Care Team Providers Care Tester Regulator Name Role Phone Annita Malloy MD Primary Care Provider [phone] Immunizations Name Administration Dates Next Due Covid-19 [...] - PCV) 12/13/2023 COVID-19 Vaccine (3 - 2024-2 6 season) 2025 09/12/2020, 08/19/2020 Influenza Vaccine (#1) 2025 RSV Adult > 60+ Yrs or (1 - 1-dose 75+ series) 2033 Hepatitis B Vaccines Aged Out No long er eligible based on patient's age to complete this topic RSV Ped < 20 months Aged Out No longe r eligible based on patient's age to complete this topic Care Teams Tester Regulator Relationship Specialty Start Date End Date Annita Malloy MD [address] [facility] [address] PCP - General Internal Medicine 08/19/20
--- OUTSIDE RECORDS SUMMARY | 2025-02-13 17:19 | XMS_ITS | Clinical Summary ---
Author Organization [facility] Address [address] [place] [address] Care Team Providers Care Biofuels Product Development Manager Name Role Phone Md, Unknown Primary Care Provider Unavailabl e Allergies Active Allergy Reactions Criticality Noted Date Comments Erythromycin Nausea 07/28/2021 Mares my stomach up States the patient Medications losartan (Cozaar) 25 mg tablet 2 Active fish oil concentrate (OMEGA-3) 300-1,000 mg capsule Take 1 capsule by mouth 1 (one) time each day. Active jrtx-lms-pjx-ce b-abrt-fgnj-pec (Fiber 6) 1,000 mg tablet 2 tablets 1 (one) time each day. Active zvbocdag-rkg-NP -lycopen-lutein (Centrum Silver) 0.4-300-250 mg-mcg-mcg tablet 1 [...] Risk Screening 12/13/2023 COVID-19 Vaccine (3 - 2024-2 6 [...] age to complete this topic Insurance [employer] Care Teams Biofuels Product Development Manager Relationship Specialty Start Date End Date , Unknown 1 Alina Mao PCP - General 07/28/21
--- OUTSIDE RECORDS SUMMARY | 2025-02-13 17:19 | XMS_ITS | Clinical Summary ---
Author Organization [facility] Address [address] [place] [address] Phone Care Team Providers Care Corporate Treasury Analyst Name Role Phone Annita Malloy MD Primary Care Provider [phone] Allergies Active Allergy Reactions Criticality Noted Date [...] general and how their size, shape, and private branch exchange operator time affect her level of suspicion for [...] Surgery Date Site/Laterality Comments BRONCHOSCOPY Right PROCEDURE: NE THORACOSCOPY W/THERA WEDGE RESEXN INITIAL UNILAT; COMMENT: RUL wedge BACK SURGERY OTHER SURGICAL HISTORY PROCEDURE: REPAIR COMPLEX WOUND, NOSE/EAR/LIPS; COMMENT: 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 Medical History Medical History Date Comments Abnormal ECG Apr 2023 Hypertension 5 yrs. Asthma 5 yrs. Cancer ([facility] V24, [facility] V28) Spot on Lung COPD (chronic obstructive pu lmonary disease) ([facility] V24, [facility] V28) Hyperlipidemia GERD (gastroesophageal reflux [...] 12/20/2023 Social Influencers of Health Screening 12/20/2023 Depression Screening 05/30/2024 COVID-19 Vaccine ( season) 2025 02/25/2023, 03/26/2022, 06/20/2021, Additional history exists Influenza Vaccine (#1) 2025 , 03/26/2022, 02/06/2021, [...] patient's age to complete this topic Insurance [facility] [place] [address] [employer] [employer] Care Teams Corporate Treasury Analyst Relationship Specialty Start Date End Date Annita Malloy MD [address] [place] [phone] PCP - General Internal Medicine 3/23/21
--- OUTSIDE RECORDS SUMMARY | 2025-02-13 17:19 | XMS_ITS | Encounter Summary ---
Author Organization [facility] Address [address] [place] [address] Care Team Providers Care Rouge Sifter Name Role Phone Unavailable Primary Care Provider Unavailabl e Encounter Details Date Type Department Care Team (Late st Contact Info) Description 04/03/2024 Scanned Document [facility] DERMATOLOGY SCAN Dermatology, Scan Social [...]
--- OUTSIDE RECORDS SUMMARY | 2025-02-13 17:19 | XMS_ITS | Clinical Summary ---
Author Organization [facility] Address [address] [place] [address] Care Team Providers Care Commercial Account Officer Name Role Phone Unavailable Primary Care Provider Unavailabl e Social History Tobacco Use Types Packs/Day Years Used Date Smoking Tobacco: Never Assessed Comments Unknown Sex and Gender Information Value Date Recorded Sex Assigned at Not on file Legal Sex Female 6:17 PM EST Gender Identity Not on file Sexual Orientation Not on file Plan of Treatment Health Maintenance Due Date Last Done Comments Advance Care Planning 1960 Hepatitis C Virus Screening 1960 DTaP/Tdap/Td Vaccines (1 - Tdap) 1977 Pneumococcal Vaccines 50+ (1 of 1 - PCV) 2008 Zoster (Shingles) Vaccine (1 of 2) 2008 COVID-19 Vaccine ( - 2023-2 5 season) 2025 RSV Vaccine 60 years and old er and Patients (1 - 1-dose 75+ series) 2033 Hepatitis B Vaccines Aged Out No long er eligible based on patient's age to complete this topic
== END 2025-02-13 13:59 | disposition home or self-care (01) ==
LOC: HO.HMCC 13:27
PROVIDERS: PCP Internal Medicine; Visit Provider Internal Medicine
DX: Z00.01 Encounter for general adult medical examination with abnormal findings (principal); I10 Essential (primary) hypertension; E66.01 Morbid (severe) obesity due to excess calories; Z68.35 Body mass index [BMI] 35.0-35.9, adult; K21.9 Gastro-esophageal reflux disease without esophagitis; Z91.09 Other allergy status, other than to drugs and biological substances; F32.5 Major depressive disorder, single episode, in full remission; L40.9 Psoriasis, unspecified; M79.89 Other specified soft tissue disorders; J45.40 Moderate persistent asthma, uncomplicated; R73.01 Impaired fasting glucose; R45.89 Other symptoms and signs involving emotional state

== ENCOUNTER → 2025-02-13 13:27 | Outpatient (BNVA) | payer OTHER, SELFPAY | PROVIDERS: PCP Internal Medicine; Visit Provider Internal Medicine | DX: Z00.01 Encounter for general adult medical examination with abnormal findings (principal); I10 Essential (primary) hypertension; F41.1 Generalized anxiety disorder; E66.9 Obesity, unspecified; L30.9 Dermatitis, unspecified; R73.03 Prediabetes; K21.9 Gastro-esophageal reflux disease without esophagitis; F32.5 Major depressive disorder, single episode, in full remission; L40.9 Psoriasis, unspecified; M79.89 Other specified soft tissue disorders; J45.40 Moderate persistent asthma, uncomplicated; R73.01 Impaired fasting glucose; R45.89 Other symptoms and signs involving emotional state; E04.1 Nontoxic single thyroid nodule; E66.01 Morbid (severe) obesity due to excess calories; Z68.35 Body mass index [BMI] 35.0-35.9, adult; Z91.09 Other allergy status, other than to drugs and biological substances | CPT/HCPCS: 96127 ==